=== PATIENT | female | born 1990 | race Caucasian/White ===

== ENCOUNTER → 2016-07-02 | Outpatient (REF) | payer OTHER | LOC: M LAB REF 12:02 | PROVIDERS: ATTEND Internal Medicine | DX: Q79.6 Ehlers-Danlos syndromes (principal) ==

== ENCOUNTER → 2016-12-01 | Outpatient (CLI) | payer OTHER ==
--- NOTE | 2016-12-01 16:58 | REP ---
CT NECK WITHOUT CONTRAST: HISTORY: Janell-Danlos syndrome. The naso-, jay- and hypopharynx, larynx and subglottic trachea are normal in appearance. The salivary and thyroid glands are normal in size and density. Small lymph nodes less than 1 cm in size are present in the posterior triangles and submandibular areas. The temporomandibular joints are normal in appearance. The spinal canal and neural foramina are patent. There is no fracture or subluxation. The lung apices are clear. A retention cyst or polyp is present in the left maxillary sinus. IMPRESSION: 1. There is no neck mass or adenopathy.2. Left maxillary sinus retention cyst or polyp. Signed by Delonte Hicks MD 12/01/2016 05:02 P
== END ==
LOC: M RAD 16:04
PROVIDERS: ATTEND Internal Medicine
DX: Q79.6 Ehlers-Danlos syndromes (principal); K11.5 Sialolithiasis

== ENCOUNTER → 2017-02-18 | Outpatient (CLI) | payer OTHER | LOC: M WUC 10:36 | PROVIDERS: ATTEND Physician Assistant | DX: Z00.01 Encounter for general adult medical examination with abnormal findings (principal) ==

== ENCOUNTER → 2017-07-08 | Outpatient (CLI) | payer OTHER ==
[2017-07-08 15:21] LABS: ALBUMIN 4.6 GM/DL (3.2-5.2); ALBUMIN/GLOBULIN RATIO 1.44 (1.00-1.93); ALKALINE PHOSPHATASE 71 U/L (45-117); ALT/SGPT 31 U/L (12-78); ANION GAP 8 MEQ/L (8-16); AST/SGOT 18 U/L (7-37); BILIRUBIN,TOTAL 1.2 MG/DL (0.2-1.0); BLOOD UREA NITROGEN 7 MG/DL (7-18); CALCIUM LEVEL 9.7 MG/DL (8.5-10.1); CARBON DIOXIDE LEVEL 29 MEQ/L (21-32); CHLORIDE LEVEL 103 MEQ/L (98-107); CREATININE FOR GFR 0.74 MG/DL (0.55-1.30); GLOMERULAR FILTRATION RATE > 60.0 (>60); GLUCOSE, FASTING 83 MG/DL (70-100); POTASSIUM SERUM 4.7 MEQ/L (3.5-5.1); SODIUM LEVEL 140 MEQ/L (136-145); TOTAL PROTEIN 7.8 GM/DL (6.4-8.2)
== END ==
LOC: M LAB 14:18
DX: R17 Unspecified jaundice (principal)
CPT/HCPCS: 80053

== ENCOUNTER → 2018-04-17 | Outpatient (CLI) | payer OTHER ==
[2018-04-17 14:59] LABS: BASO # 0.1 10^3/uL (0.0-0.2); BASO % 0.7 % (0.0-1.0); EOS # 0.3 10^3/uL (0.0-0.50); EOS % 3.7 % (0.0-3.0); HEMATOCRIT 37.4 % (36.0-47.0); HEMOGLOBIN 12.4 g/dl (12.0-15.5); LYMPH # 3.2 10^3/uL (1.5-6.5); LYMPH % 45.6 % (24.0-44.0); MEAN CORPUSCULAR HEMOGLOBIN 29.1 pg (27.0-33.0); MEAN CORPUSCULAR HGB CONC 33.2 g/dl (32.0-36.5); MEAN CORPUSCULAR VOLUME 87.8 fl (80.0-96.0); MONO # 0.5 10^3/uL (0.0-0.8); MONO % 7.1 % (0.0-5.0); NEUTROPHILS % 42.8 % (36.0-66.0); PLATELET COUNT, AUTOMATED 282 10^3/uL (150-450); RED BLOOD COUNT 4.26 10^6/uL (4.00-5.40); WHITE BLOOD COUNT 7.1 10^3/uL (4.0-10.0)
[2018-04-17 15:24] LABS: ALT/SGPT 34 U/L (12-78); BILIRUBIN,TOTAL 0.9 MG/DL (0.2-1.0); BLOOD UREA NITROGEN 16 MG/DL (7-18); C REACTIVE PROTEIN QUANTITATIV < 0.30 MG/DL (0.00-0.30); CALCIUM LEVEL 8.6 MG/DL (8.5-10.1); CARBON DIOXIDE LEVEL 26 MEQ/L (21-32); CHLORIDE LEVEL 108 MEQ/L (98-107); CREATININE FOR GFR 0.61 MG/DL (0.55-1.30); GLOMERULAR FILTRATION RATE > 60.0 (>60); GLUCOSE, FASTING 79 MG/DL (70-100); SODIUM LEVEL 139 MEQ/L (136-145); TOTAL PROTEIN 6.8 GM/DL (6.4-8.2)
== END ==
LOC: M LAB 14:06
PROVIDERS: ATTEND Internal Medicine
DX: Q79.6 Ehlers-Danlos syndromes (principal)

== ENCOUNTER → 2018-04-25 | Outpatient (CLI) | payer OTHER ==
[2018-04-25 14:33] LABS: BASO # 0.1 10^3/uL (0.0-0.2); BASO % 0.7 % (0.0-1.0); EOS # 0.3 10^3/uL (0.0-0.50); EOS % 3.7 % (0.0-3.0); LYMPH # 3.1 10^3/uL (1.5-6.5); MEAN CORPUSCULAR HEMOGLOBIN 29.3 pg (27.0-33.0); MEAN CORPUSCULAR HGB CONC 33.3 g/dl (32.0-36.5); MEAN CORPUSCULAR VOLUME 87.8 fl (80.0-96.0); MONO # 0.5 10^3/uL (0.0-0.8); MONO % 6.3 % (0.0-5.0); NEUTROPHILS # 3.6 10^3/uL (1.8-7.7); PLATELET COUNT, AUTOMATED 358 10^3/uL (150-450); RED BLOOD COUNT 4.44 10^6/uL (4.00-5.40); WHITE BLOOD COUNT 7.6 10^3/uL (4.0-10.0)
[2018-04-25 14:42] LABS: ALBUMIN 4.8 GM/DL (3.2-5.2); ALT/SGPT 29 U/L (12-78); BLOOD UREA NITROGEN 9 MG/DL (7-18); C REACTIVE PROTEIN QUANTITATIV < 0.30 MG/DL (0.00-0.30); CALCIUM LEVEL 9.4 MG/DL (8.5-10.1); CARBON DIOXIDE LEVEL 28 MEQ/L (21-32); CHLORIDE LEVEL 103 MEQ/L (98-107); CREATININE FOR GFR 0.58 MG/DL (0.55-1.30); GLOMERULAR FILTRATION RATE > 60.0 (>60); GLUCOSE, FASTING 82 MG/DL (70-100); SODIUM LEVEL 137 MEQ/L (136-145); TOTAL PROTEIN 7.6 GM/DL (6.4-8.2)
== END ==
LOC: M LAB 13:43
PROVIDERS: ATTEND Internal Medicine
DX: Q79.6 Ehlers-Danlos syndromes (principal)

== ENCOUNTER → 2018-05-02 | Outpatient (CLI) | payer OTHER ==
[2018-05-02 19:33] LABS: BASO % 0.6 % (0.0-1.0); EOS # 0.1 10^3/uL (0.0-0.50); HEMOGLOBIN 13.2 g/dl (12.0-15.5); LYMPH # 2.7 10^3/uL (1.5-6.5); LYMPH % 42.8 % (24.0-44.0); MEAN CORPUSCULAR HEMOGLOBIN 29.7 pg (27.0-33.0); MEAN CORPUSCULAR VOLUME 89.9 fl (80.0-96.0); MONO # 0.4 10^3/uL (0.0-0.8); MONO % 6.5 % (0.0-5.0); NEUTROPHILS % 47.9 % (36.0-66.0); PLATELET COUNT, AUTOMATED 410 10^3/uL (150-450); RED BLOOD COUNT 4.45 10^6/uL (4.00-5.40); WHITE BLOOD COUNT 6.4 10^3/uL (4.0-10.0)
[2018-05-02 20:12] LABS: ALBUMIN 4.4 GM/DL (3.2-5.2); ALT/SGPT 27 U/L (12-78); BILIRUBIN,TOTAL 1.1 MG/DL (0.2-1.0); BLOOD UREA NITROGEN 8 MG/DL (7-18); C REACTIVE PROTEIN QUANTITATIV < 0.30 MG/DL (0.00-0.30); CALCIUM LEVEL 9.2 MG/DL (8.5-10.1); CARBON DIOXIDE LEVEL 28 MEQ/L (21-32); CHLORIDE LEVEL 104 MEQ/L (98-107); CREATININE FOR GFR 0.63 MG/DL (0.55-1.30); GLOMERULAR FILTRATION RATE > 60.0 (>60); GLUCOSE, FASTING 72 MG/DL (70-100); POTASSIUM SERUM 4.5 MEQ/L (3.5-5.1); SODIUM LEVEL 139 MEQ/L (136-145); TOTAL PROTEIN 7.3 GM/DL (6.4-8.2)
== END ==
LOC: M WUC 15:30
PROVIDERS: ATTEND Internal Medicine
DX: Q79.6 Ehlers-Danlos syndromes (principal)

== ENCOUNTER → 2018-05-08 | Outpatient (CLI) | payer OTHER ==
[2018-05-08 17:00] LABS: BASO # 0.1 10^3/uL (0.0-0.2); BASO % 0.8 % (0.0-1.0); EOS # 0.2 10^3/uL (0.0-0.50); HEMATOCRIT 40.7 % (36.0-47.0); HEMOGLOBIN 13.3 g/dl (12.0-15.5); LYMPH # 2.9 10^3/uL (1.5-6.5); LYMPH % 38.5 % (24.0-44.0); MEAN CORPUSCULAR HEMOGLOBIN 29.4 pg (27.0-33.0); MEAN CORPUSCULAR HGB CONC 32.7 g/dl (32.0-36.5); MEAN CORPUSCULAR VOLUME 89.8 fl (80.0-96.0); MONO # 0.4 10^3/uL (0.0-0.8); NEUTROPHILS % 53.4 % (36.0-66.0); PLATELET COUNT, AUTOMATED 346 10^3/uL (150-450); RED BLOOD COUNT 4.53 10^6/uL (4.00-5.40); WHITE BLOOD COUNT 7.5 10^3/uL (4.0-10.0)
[2018-05-08 17:01] LABS: ALBUMIN 4.3 GM/DL (3.2-5.2); ALT/SGPT 30 U/L (12-78); BILIRUBIN,TOTAL 1.3 MG/DL (0.2-1.0); BLOOD UREA NITROGEN 12 MG/DL (7-18); C REACTIVE PROTEIN QUANTITATIV < 0.30 MG/DL (0.00-0.30); CARBON DIOXIDE LEVEL 29 MEQ/L (21-32); CHLORIDE LEVEL 103 MEQ/L (98-107); CREATININE FOR GFR 0.62 MG/DL (0.55-1.30); GLOMERULAR FILTRATION RATE > 60.0 (>60); GLUCOSE, FASTING 82 MG/DL (70-100); SODIUM LEVEL 140 MEQ/L (136-145); TOTAL PROTEIN 7.3 GM/DL (6.4-8.2)
== END ==
LOC: M WUC 11:17
PROVIDERS: ATTEND Internal Medicine
DX: Q79.6 Ehlers-Danlos syndromes (principal)

== ENCOUNTER → 2018-05-17 | Outpatient (CLI) | payer OTHER ==
[2018-05-17 19:42] LABS: BASO # 0.1 10^3/uL (0.0-0.2); BASO % 0.5 % (0.0-1.0); EOS # 0.2 10^3/uL (0.0-0.50); HEMATOCRIT 40.9 % (36.0-47.0); HEMOGLOBIN 13.6 g/dl (12.0-15.5); MEAN CORPUSCULAR HEMOGLOBIN 30.5 pg (27.0-33.0); MEAN CORPUSCULAR HGB CONC 33.3 g/dl (32.0-36.5); MEAN CORPUSCULAR VOLUME 91.7 fl (80.0-96.0); MONO # 0.6 10^3/uL (0.0-0.8); MONO % 5.6 % (0.0-5.0); NEUTROPHILS # 6.6 10^3/uL (1.8-7.7); NEUTROPHILS % 62.6 % (36.0-66.0); PLATELET COUNT, AUTOMATED 297 10^3/uL (150-450); RED BLOOD COUNT 4.46 10^6/uL (4.00-5.40); WHITE BLOOD COUNT 10.5 10^3/uL (4.0-10.0)
[2018-05-17 19:54] LABS: ALBUMIN 4.2 GM/DL (3.2-5.2); ALT/SGPT 21 U/L (12-78); BILIRUBIN,TOTAL 1.3 MG/DL (0.2-1.0); BLOOD UREA NITROGEN 10 MG/DL (7-18); C REACTIVE PROTEIN QUANTITATIV < 0.30 MG/DL (0.00-0.30); CALCIUM LEVEL 8.8 MG/DL (8.5-10.1); CARBON DIOXIDE LEVEL 28 MEQ/L (21-32); CHLORIDE LEVEL 106 MEQ/L (98-107); GLOMERULAR FILTRATION RATE > 60.0 (>60); GLUCOSE, FASTING 85 MG/DL (70-100); POTASSIUM SERUM 4.2 MEQ/L (3.5-5.1); SODIUM LEVEL 140 MEQ/L (136-145); TOTAL PROTEIN 7.1 GM/DL (6.4-8.2)
== END ==
LOC: M WUC 15:59
PROVIDERS: ATTEND Internal Medicine
DX: Q79.6 Ehlers-Danlos syndromes (principal)

== ENCOUNTER 2019-07-26 12:23 | Emergency (ER) | payer OTHER ==
[~2019-07-26] VITALS: Ht 154.9 cm; Wt 52.8 kg
[2019-07-26 12:24] VITALS: BP 135/83
[2019-07-26] MEDS ORDERED: VITAD1000T PO (12:38)
[2019-07-26] MEDS ORDERED: FLON1SPR NARES (12:56)
[2019-07-26] MEDS ORDERED: CETI10CA2 PO (12:56)
== END 2019-07-26 13:05 | disposition home or self-care (01) ==
LOC: M ED 12:23
DX: H65.03 Acute serous otitis media, bilateral (principal); F17.218 Nicotine dependence, cigarettes, with other nicotine-induced disorders

== ENCOUNTER → 2019-09-20 | Outpatient (CLI) | payer OTHER ==
[~2019-09-20] MED LIST: CETI10CA2 PO; D31000TA2 PO; FLON1SPR NARES; ISOVUE-370 76% 100ML VIAL As Ordered ONE
--- NOTE | 2019-09-20 10:28 | REPVR ---
PROCEDURE INFORMATION: Exam: CT Neck With Contrast Exam date and time: 09/20/2019 7:56 AM Age: 29 years old Clinical indication: Mass, lump, or swelling in neck; Additional info: Localized swelling mass lump neck lt submandibular TECHNIQUE: Imaging protocol: Computed tomography images of the neck with intravenous contrast. Radiation optimization: All CT scans at this facility use at least one of these dose optimization techniques: automated exposure control; mA and/or kV adjustment per patient size (includes targeted exams where dose is matched to clinical indication); or iterative reconstruction. Contrast material: ISOVUE 370; Contrast volume: 75 ml; Contrast route: INTRAVENOUS (IV); COMPARISON: CT Neck without contrast 12/01/2016 4:18 PM FINDINGS: Nasopharynx: Unremarkable. Oropharynx: Unremarkable. No significant tonsillar enlargement. Hypopharynx: Unremarkable. Larynx: Unremarkable. Normal epiglottis. Retropharyngeal space: Unremarkable. Submandibular/Parotid glands: Normal. Glands are normal in size. Thyroid: Slightly hypodense 13 mm x 9 mm left thyroid lobe lesion. Hyperenhancing exophytic thyroid nodules versus lymph nodes along the caudal aspect of the thyroid isthmus and left thyroid lobe. These were incompletely imaged on the CT. Imaged lesions appear similar compared to prior. These measure up to 16 mm x 10 mm. Lymph nodes: Mildly prominent 11 mm x 8 mm left submandibular lymph node. Mildly prominent 12 mm x 7 mm and 12 mm x 8 mm left jugular chain left jugular chain lymph node. Additional smaller lymph nodes within the neck bilaterally Trachea: Visualized trachea is unremarkable. Lungs: Unremarkable as visualized. Bones/joints: Unremarkable. No acute fracture. Soft tissues: Unremarkable. No significant soft tissue swelling. IMPRESSION: 1. Hyperenhancing exophytic nodules versus lymph nodes along the caudal aspect of the left thyroid lobe and thyroid isthmus. Recommend further evaluation with targeted ultrasound. 2. Mildly prominent left submandibular and jugular chain nodes. COMMENTS: Consistent with the [employer]'s Incidental Findings Committee white paper (J Am Humza Radiol 2015): In patients under 35 years old with an incidental thyroid nodule equal to or greater than [address], MRI or extrathyroidal US, further evaluation with dedicated thyroid US is recommended for patients with normal life expectancy and without comorbidities. For smaller nodules without suspicious features, no further evaluation or follow up is recommended. Electronically signed by: Sharyn Reyes On 09/20/2019 10:28:33 AM
== END ==
LOC: M RAD 07:16
PROVIDERS: ATTEND Otolaryngology
DX: E04.1 Nontoxic single thyroid nodule (principal); R22.1 Localized swelling, mass and lump, neck
CPT/HCPCS: 70491; Q9967

== ENCOUNTER → 2019-10-23 | Outpatient (CLI) | payer OTHER ==
[~2019-10-23] MED LIST changes: -ISOVUE-370 76% 100ML VIAL As Ordered ONE; +LIDOCAINE 1% MDV 20ML VIAL As Ordered ONE
--- NOTE | 2019-11-28 07:07 | REP ---
ULTRASOUND-GUIDED LEFT THYROID BIOPSY The procedure was performed under the direct supervision of Dr. Welch. The patient has a history of a left thyroid lobe that is felt to be largely replaced by heterogeneous hypoechoic solid tissue seen on a previous ultrasound dated 09/28/2019. The risks and benefits of the procedure were explained to the patient and informed consent was obtained. The left thyroid lobe was localized using ultrasound guidance. The skin was prepped and draped in a sterile fashion. 1% Lidocaine was used as a local anesthetic. Using ultrasound guidance, four fine needle aspirations were obtained using 25-gauge needles. All samples were sent to the lab for analysis. The patient tolerated the procedure well and there were no immediate complications. After the appropriate amount of monitored convalescence, the patient was discharged from the department. DANIEL
== END ==
LOC: M IRPRO 11:55 → M RAD 11:55
PROVIDERS: ATTEND Otolaryngology
DX: D44.0 Neoplasm of uncertain behavior of thyroid gland (principal)

== ENCOUNTER → 2020-01-07 | Outpatient (CLI) | payer OTHER ==
[2020-01-07 12:24] VITALS: BP 136/81
--- NOTE | 2020-01-07 17:30 | REP ---
INDICATION: LT THYROID LOBE THAT IS FELT TO BE LARGELY REPLACED BY HETEROGENEOUS HYPOECHOIC SOLID TISSUE SEEN ON A PREVIOUS ULTRASOUND DATED 09/28/2019.. THIS WAS PREVIOUSLY BIOPSIED ON 10/23/2019. COMPARISON: None. TECHNIQUE: The procedure was performed under the direct supervision of Dr. Rocha. The risks and benefits of the procedure were explained to the patient and informed consent was obtained. The left thyroid was localized using ultrasound guidance. The skin was prepped and draped in a sterile fashion. 1% lidocaine was used as a local anesthetic. Using ultrasound guidance 6 fine needle aspirations were obtained using 25 gauge needles. FINDINGS: None IMPRESSION: Technically successful ultrasound-guided left thyroid biopsy The patient tolerated the procedure well and there were no immediate complications. After the appropriate amount to monitor convalescence the patient was discharged from the department. <Electronically signed by Jose Tony > 01/07/20 1631 <Electronically signed by Robert Rocha > 01/07/20 [id number]
== END ==
LOC: M IRPRO 11:31
PROVIDERS: ATTEND Otolaryngology
DX: E06.3 Autoimmune thyroiditis (principal); R89.6 Abnormal cytological findings in specimens from other organs, systems and tissues

== ENCOUNTER → 2020-04-21 | Outpatient (CLI) | payer OTHER ==
[~2020-04-21] MED LIST changes: +BIOT2500 PO; -LIDOCAINE 1% MDV 20ML VIAL As Ordered ONE
== END ==
LOC: M LABSMTC 09:31
PROVIDERS: ATTEND Anesthesiology
DX: Z01.812 Encounter for preprocedural laboratory examination (principal); Z20.822 Contact with and (suspected) exposure to COVID-19

== ENCOUNTER 2020-04-22 06:37 | Inpatient (IN) | payer OTHER ==
[2020-04-22] VITALS (23 sets, daily range): BP systolic 120–145; BP diastolic 58–92
[~2020-04-22] VITALS: Ht 154.9 cm; Wt 45.6 kg
[2020-04-22] MEDS ORDERED: LR 1,000 ML IV ONE (07:00)
[2020-04-22] MEDS ORDERED: dexameTHASONE 4 MG/ML 1ML VIAL (J1100 PER 1MG) IV ONE (07:00)
[2020-04-22] MEDS ORDERED: MIDAZOLAM INJ 2MG/2ML VIAL (J2250 PER 1MG) As Ordered ONE (07:09)
[2020-04-22] MEDS ORDERED: fentaNYL 250 MCG/5 ML INJECTION (J3010) As Ordered ONE ×2 (07:09→12:46)
[2020-04-22] MEDS ORDERED: SUCCINYLCHOLINE 100 MG/5 ML SYRINGE (J0330) As Ordered ONE (07:10)
[2020-04-22] MEDS ORDERED: propofoL 200 MG/20 ML VIAL As Ordered ONE ×2 (07:10→14:53)
[2020-04-22] MEDS ORDERED: LIDOCAINE 2% 100MG/5ML SDV (FOR ANES.) As Ordered ONE ×2 (07:10→10:09)
[2020-04-22] MEDS ORDERED: ACETAMINOPHEN 1000MG 100ML IV BTL (OFIRMEV) (J0131 PER 10MG) As Ordered ONE (07:10)
[2020-04-22] MEDS ORDERED: ePHEDrine SULFATE 25 MG/5 ML(5MG/ML) SYRINGE As Ordered ONE (07:10)
[2020-04-22] MEDS ORDERED: dexameTHASONE 4 MG/ML 1ML VIAL (J1100 PER 1MG) As Ordered ONE ×2 (07:10→14:19)
[2020-04-22] MEDS ORDERED: PHENYLephrine 500MCG 5ML (100MCG/ML) SYRINGE As Ordered ONE ×2 (07:10→08:23)
[2020-04-22] MEDS ORDERED: LIDOCAINE W/EPINEPHRINE 1% 20ML VIAL As Ordered ONE (07:13)
[2020-04-22] MEDS ORDERED: PHENYLEPHRINE 10MG/ML 1ML VIAL (J2370 PER 1) As Ordered ONE (07:20)
--- OUTSIDE RECORDS SUMMARY | 2020-04-22 07:30 | CCD | Continuity of Care Document ---
Author Author Ashley KHAN Organization Unknown Address [address] [place] [address] [place] [address] Phone [phone] Care Team Providers Care Amortization Clerk Name Role Phone Wilberto Gipson RPA AUTM [phone] Vincenzo Jiménez Publi AUTM [phone] Problems Description No Information Available Social History Type Date Description Comments Sex Unknown ETOH Use Rarely consumes alcohol Tobacco Use Start: Unknown Patient is a current smoker, smo kes every day 1/2 ppd Tobacco Use Start: Unknown The Patient Has Never Vaped Smoking Status Reviewed: 02/19/20 The Patient Has Never Vaped Allergies, Adverse Reactions, Alerts Description No Known Drug Allergies Medications Description No Active Medications Immunizations CPT Code Status Date Vaccine Reaction Lot # [id number] Given 04/27/2017 PPD- TB Intradermal Test 0mm ,negative read by NAZ Castillo [id number] Given 02/18/2017 PPD- TB Intradermal Test No reaction - read as negative, 0 mm of induration by NAZ Castillo. 02/20/2017 1351 [id number] Vital Signs Date Vital Result Comment 02/19/2020 12:00pm BP Systolic 110 mmHg BP Diastolic 64 mmHg Heart Rate 103 /min Respiratory Rate 16 /min O2 % BldC Oximetry 99 % Body Temperature 98.7 F Weight 107.00 lb Height 61 inches 5'1" BMI (Body Mass Index) 20.2 kg/m2 Pain Level 6 Results Description No Information Available Procedures Description No Information Available Medical Devices Description No Information Available Encounters Type Date Location Provider Dx Diagnosis Office Visit 02/19/2020 12:30p Main Office NAZ Pal J06 .9 Acute upper respiratory infection, unspecified Z20.828 Contact w and exposure to ot h viral communicable diseases Assessments Date Code Description Provider 02/19/2020 J06.9 Acute upper respiratory infectio n, unspecified NAZ Pal 02/19/2020 Z20.828 Contact with and (nagel spected) exposure to other viral communicable diseases NAZ Pal Plan of Treatment No Information Available Functional Status Description No Information Available Mental Status Description No Information Available Referrals Description No Information Available
--- OUTSIDE RECORDS SUMMARY | 2020-04-22 07:31 | CCD | Continuity of Care Document ---
Author Author Ashley KHAN Organization Unknown Address [address] [place] [address] [place] [address] Phone [phone] Care Team Providers Care Drop Wire Hanger Name Role Phone Wilberto Gipson RPA AUTM [phone] Vincenzo Jiménez Publi AUTM [phone] Problems Description No Information Available Social History [...] Code Status Date Vaccine Reaction Lot # [id number] Given 04/27/2017 PPD- TB Intradermal Test 0mm ,negative read by NAZ Castillo [id number] Given 02/18/2017 PPD- TB Intradermal Test No reaction - read as negative, 0 mm of induration by NAZ Castillo. 02/20/2017 1351 [id number] Vital Signs Date Vital Result Comment 02/19/2020 [...]
--- OUTSIDE RECORDS SUMMARY | 2020-04-22 07:32 | CCD ---
Author Author [facility] Organization [facility] Address Unknown Phone Unavailable Care Team Providers Care Ip Attorney Name Role Phone Tim [id number] MD Caden ROMEO Unavailable Tim [phone] MD Caden ROMEO Unavailable Tim [phone] MD Cadne MD Unavailable Tim, [id number] MD Caden MD Unavailable Tim, [id number] MD Caden MD Unavailable Tim, [id number] MD Caden MD Unavailable Tim, [id number] MD Caden MD Unavailable Tim, [id number] MD Caden MD Unavailable Tim, [id number] MD Caden MD Unavailable Tim, [id number] MD Caden MD Unavailable Tim, [id number] MD Caden MD Unavailable Tim, [id number] MD Caden MD Unavailable Tim, [id number] MD Caden MD Unavailable Tim, [id number] MD Caden MD Unavailable Tim, [id number] MD Caden MD Unavailable Tim, [id number] MD Caden MD Unavailable Tim, [id number] MD Caden MD Unavailable Tim, [id number] MD Caden MD Unavailable Tim, [id number] MD Caden MD Unavailable Tim, [id number] MD Caden MD Unavailable Tim, [id number] MD Caden MD Unavailable Tim, [id number] MD Caden MD Unavailable Tim, [id number] MD Caden MD Unavailable Tim, [id number] MD Caden MD Unavailable Tim, [id number] MD Caden MD Unavailable Tim, [id number] MD Cdaen ROMEO Unavailable Tim, [id number] MD Caden ROMEO Unavailable Tim, [id number] MD Caden ROMEO Unavailable Tim, [id number] MD Caden ROMEO Unavailable Tim, [id number] MD Caden ROMEO Unavailable Tim, [id number] MD Caden ROMEO Unavailable Last Rodriguez MD Unavailable Unavailable Last Rodriguez MD Unavailable Unavailable Last Rodriguez MD Unavailable Unavailable Last Rodriguez MD Unavailable Unavailable Last Rodriguez MD Unavailable Unavailable Last Rodriguez MD Unavailable Unavailable Angelic MCQUEEN MD Unavailable Unavailable Angelic MCQUEEN MD Unavailable Unavailable Angelic MCQUEEN MD Unavailable Unavailable Angelic MCQUEEN MD Unavailable Unavailable Angelic MCQUEEN MD Unavailable Unavailable Angelic MCQUEEN MD Unavailable Unavailable nAgelic MCQUEEN MD Unavailable Unavailable Angelic MCQUEEN MD Unavailable Unavailable Angelic MCQUEEN MD Unavailable Unavailable Angelic MCQUEEN MD Unavailable Unavailable Angelic MCQUEEN MD Unavailable Unavailable Angelic MCQUEEN MD Unavailable Unavailable Angelic MCQUEEN MD Unavailable Unavailable Angelic MCQUEEN MD Unavailable Unavailable Angelic MCQUEEN MD Unavailable Unavailable Angelic MCQUEEN MD Unavailable Unavailable Angelic MCQUEEN MD Unavailable Unavailable Angelic MCQUEEN MD Unavailable Unavailable Angelic MCQUEEN MD Unavailable Unavailable Angelic MCQUEEN MD Unavailable Unavailable Angelic MCQUEEN MD Unavailable Unavailable Angelic MCQUEEN MD Unavailable Unavailable Angelic MCQUEEN MD Unavailable Unavailable Angelic MCQUEEN MD Unavailable Unavailable Angelic MCQUEEN MD Unavailable Unavailable Angelic MCQUEEN MD Unavailable Unavailable Angelic MCQUEEN MD Unavailable Unavailable Angelic MCQUEEN MD Unavailable Unavailable Angelic MCQUEEN MD Unavailable Unavailable Angelic MCQUEEN MD Unavailable Unavailable Angelic MCQUEEN MD Unavailable Unavailable Angelic MCQUEEN MD Unavailable Unavailable NERISAngelic MD Unavailable Unavailable NERISAngelic CHOUDHURY MD Unavailable Unavailable NERIS, Angelic JOSEPH MD Unavailable Unavailable TURRIN, KRISH Unavailable Unavailable TURRIN, KRISH Unavailable Unavailable TURRIN, KRISH Unavailable Unavailable TURRIN, KRISH Unavailable Unavailable Dille, E Nikki DDS Unavailable Unavailable Dille, E Nikki DDS Unavailable Unavailable Dille, E Nikki DDS Unavailable Unavailable Dille, E Nikki DDS Unavailable Unavailable Fish, J Almas Unavailable Unavailable Fish, J Almas Unavailable Unavailable Fish, J Almas Unavailable Unavailable Fish, J Almas Unavailable Unavailable Fish, J Almas Unavailable Unavailable Fish, J Almas Unavailable Unavailable Fish, J Almas Unavailable Unavailable Fish, J Almas Unavailable Unavailable Fish, J Almas Unavailable Unavailable Fish, J Almas Unavailable Unavailable Fish, J Almas Unavailable Unavailable Fish, J Almas Unavailable Unavailable Fish, J Almas Unavailable Unavailable Fish, J Almas Unavailable Unavailable Fish, J Almas Unavailable Unavailable Fish, J Almas Unavailable Unavailable Fish, J Almas Unavailable Unavailable Fish, J Almas Unavailable Unavailable Fish, J Almas Unavailable Unavailable Fish, J Almas Unavailable Unavailable Fish, J Almas Unavailable Unavailable Fish, J Almas Unavailable Unavailable Fish, J Almas Unavailable Unavailable Fish, J Almas Unavailable Unavailable Fish, J Almas Unavailable Unavailable Fish, J Almas Unavailable Unavailable Fish, J Almas Unavailable Unavailable Fish, J Almas Unavailable Unavailable Fish, J Almas Unavailable Unavailable Fish, J Almas Unavailable Unavailable Fish, J Almas Unavailable Unavailable Fish, J Almas Unavailable Unavailable Fish, J Almas Unavailable Unavailable Fish, J Almas Unavailable Unavailable Fish, J Almas Unavailable Unavailable Fish, J Almas Unavailable Unavailable Fish, J Almas Unavailable Unavailable Fish, J Almas Unavailable Unavailable Fish, J Almas Unavailable Unavailable Fish, J Almas Unavailable Unavailable Fish, J Almas Unavailable Unavailable Fish, J Almas Unavailable Unavailable Fish, J Almas Unavailable Unavailable Fish, J Almas Unavailable Unavailable Fish, J Almas Unavailable Unavailable Fish, J Almas Unavailable Unavailable Fish, J Almas Unavailable Unavailable Fish, J Almas Unavailable Unavailable Fish, J Almas Unavailable Unavailable Fish, J Almas Unavailable Unavailable Fish, J Almas Unavailable Unavailable Fish, J Almas Unavailable Unavailable Fish, J Almas Unavailable Unavailable Fish, J Almas Unavailable Unavailable Fish, J Almas Unavailable Unavailable Fish, J Almas Unavailable Unavailable Fish, J Almas Unavailable Unavailable Fish, J Almas Unavailable Unavailable Fish, J Almas Unavailable Unavailable Fish, J Almas Unavailable Unavailable Fish, J Almas Unavailable Unavailable Fish, J Almas Unavailable Unavailable Fish, J Almas Unavailable Unavailable Fish, J Almas Unavailable Unavailable Fish, J Almas Unavailable Unavailable Fish, J Almas Unavailable Unavailable Fish, J Almas Unavailable Unavailable Fish, J Almas Unavailable Unavailable Fish, J Almas Unavailable Unavailable Fish, J Almas Unavailable Unavailable Fish, J Almas Unavailable Unavailable Fish, J Almas Unavailable Unavailable Fish, J Almas Unavailable Unavailable Fish, J Almas Unavailable Unavailable Fish, J Almas Unavailable Unavailable Fish, J Almas Unavailable Unavailable Fish, J Almas Unavailable Unavailable Fish, J Almas Unavailable Unavailable Fish, J Almas Unavailable Unavailable Fish, J Almas Unavailable Unavailable Fish, J Almas Unavailable Unavailable Fish, J Almas Unavailable Unavailable Fish, J Almas Unavailable Unavailable Fish, J Almas Unavailable Unavailable Fish, J Almas Unavailable Unavailable Caden Dumont MD Unavailable Unavailable LETTIERE, A LEROY PA Unavailable Unavailable LETTIERE, A LEROY PA Unavailable Unavailable LETTIERE, A LEROY PA Unavailable Unavailable LETTIERE, A LEROY PA Unavailable Unavailable LETTIERE, A LEROY PA Unavailable Unavailable LETTIERE, A LEROY PA Unavailable Unavailable LETTIERE, A LEROY PA Unavailable Unavailable LETTIERE, A LEROY PA Unavailable Unavailable LETTIERE, A LEROY PA Unavailable Unavailable LETTIERE, A LEROY PA Unavailable Unavailable LETTIERE, A LEROY PA Unavailable Unavailable LETTIERE, A LEROY PA Unavailable Unavailable LETTIERE, A LEROY PA Unavailable Unavailable LETTIERE, A LEROY PA Unavailable Unavailable LETTIERE, A LEROY PA Unavailable Unavailable LETTIERE, A LEROY PA Unavailable Unavailable LETTIERE, A LEROY PA Unavailable Unavailable LETTIERE, A LEROY PA Unavailable Unavailable LETTIERE, A LEROY PA Unavailable Unavailable LETTIERE, A LEROY PA Unavailable Unavailable LETTIERE, A LEROY PA Unavailable Unavailable LETTIERE, A LEROY PA Unavailable Unavailable LETTIERE, A LEROY PA Unavailable Unavailable LETTIERE, A LEROY PA Unavailable Unavailable LETTIERE, A LEROY PA Unavailable Unavailable LETTIERE, A LEROY PA Unavailable Unavailable LETTIERE, A LEROY PA Unavailable Unavailable LETTIERE, A LEROY PA Unavailable Unavailable LETTIERE, A LEROY PA Unavailable Unavailable Re-disclosure Warning The records that you are about to access may contain information from federally-assisted alcohol or drug abuse programs. If such information is present, then the following federally mandated warning applies: This information has been disclosed to you from records protected by federal confidentiality rules (42 CFR part 2). The federal rules prohibit you from making any further disclosure of this information unless further disclosure is expressly permitted by the written consent of the person to whom it pertains or as otherwise permitted by 42 CFR part 2. A general authorization for the release of medical or other information is NOT sufficient for this purpose. The Federal rules restrict any use of the information to criminally investigate or prosecute any alcohol or drug abuse patient.The records that you are about to access may contain highly sensitive health information, the redisclosure of which is protected by Article 27-F of the [facility] Public Health law. If you continue you may have access to information: Regarding HIV / AIDS; Provided by facilities licensed or operated by the [facility] Office of Mental Health; or Provided by the [facility] Office for People With Developmental Disabilities. If such information is present, then the following [facility] mandated warning applies: This information has been disclosed to you from confidential records which are protected by state law. State law prohibits you from making any further disclosure of this information without the specific written consent of the person to whom it pertains, or as otherwise permitted by law. Any unauthorized further disclosure in violation of state law may result in a fine or group home sentence or both. A general authorization for the release of medical or other information is NOT sufficient authorization for further disc losure. Family History Family Member Name Family Member Gender Family Member Status Date o f Status Description Data Source(s) Unknown Male Problem [facility] ([facility] Unknown Female Problem [facility] ([facility] ) Encounters Encounter Providers Location Date Indications Data Source(s ) Outpatient Attender: [phone] [facility] 12:57:00 PM EST - 03/24/2020 12:58:00 PM EST [facility] Patient discharged. Outpatient Attender: LEROY orlando 02/19/2020 11:30:00 AM EST [facility] ([facility], [facility]) Outpatient Admitter: Last Rodriguez MDReferrer: Last Rodriguez MD 01/08/2020 12:00:00 AM EST Disorder of thyroid, unspecified [facility] Disorder of thyroid, unspecified Outpatient Admitter: Last Rodriguez MDReferrer: Last Rodriguez MD 11/01/2019 12:00:00 AM EDT Nontoxic single thyroid nodule [facility] Nontoxic single thyroid nodule Outpatient Attender: Nikki Ordaz DDS [facility] 08/14/2019 07:32:18 P M EDT [facility] Outpatient Attender: JAKE Mcqueen/Florin/Salty/Carlos A shah 08/14/2019 02:00:00 PM EDT [facility] ([facility], ) Emergency Attender: KRISH Manuelsultant: Almas Count includes the [facility] 07/26/2019 07:54:00 PM EDT - 07/26/2019 09:34:00 PM EDT [facility] Patient discharged. Outpatient Attender: Caden Dumont MDAttender: [phone] Caden Dumont MD [facility] 05/23/2019 10:52:00 AM EDT - 05/23/2019 10:53:00 AM EDT [facility] Patient discharged. Medications Medication Brand Name Start Date Product Form Dose Route Admi nistrative Instructions Pharmacy Instructions Status Indications Reaction Description Data Source(s) 800 mg 07/27/2019 12:00:00 AM EDT tablet 30 TAKE ONE TABLET BY MOUTH EVERY 8 HOURS TAKE ONE TABLET BY MOUTH EVERY 8 HOURS SOLD: 07/27/2019 [facility] 300 mg 07/27/2019 12:00:00 AM EDT capsule 21 TAKE ONE CAPSULE BY MOUTH EVERY 8 HOURS FOR LYMPH NODE SWELLING TAKE ONE CAPSULE BY MOUTH EVERY 8 HOURS FOR LYMPH NODE SWELLING SOLD: 07/27/2019 [facility] 10 mg 07/26/2019 12:00:00 AM EDT tablet 14 TAKE ONE TABLET BY MOUTH AT BEDTIME TAKE ONE TABLET BY MOUTH AT BEDTIME SOLD: 07/26/2019 [facility] 50 mcg/actuation 07/26/2019 12:00:00 AM EDT spray,suspension 16 SPRAY TWO SPRAYS IN EACH NOSTRIL TWICE A DAY SPRAY TWO SPRAYS IN EACH NOSTRIL TWICE A DAY SOLD: 07/26/2019 [facility] Insurance Providers Payer name Policy type / Coverage type Policy ID Covered green party ID Covered green party's relationship to rees Policy Rees Plan Information [facility] COMMUNITY PLAN MCDO [id number] SP [id number] [facility] COMMUNITY PLAN MCDO [id number] SP [id number] [facility]ITY PL [id number] S [id number] [facility](MCAID) O [id number] S [id number] [facility] U [id number] [id number] [facility] I [id number] Self [id number] [facility] COMMUNITY PLAN [facility] [id number] SP [id number] United [employer] Essential Plan P [id number] S [id number] [facility] COMMUNITY PLAN [id number] 18 [id number] [facility] COMMUNITY PLAN [facility] [id number] SP [id number] [facility] Hmo Commercial [id number] Self [id number] [facility] Community Plan Commercial [id number] Self [id number] [facility] COMM[facility]ITY PL [id number] S [id number] [facility] Hmo Commercial [id number] Self [id number] [facility] Community Plan Commercial [id number] Self [id number] United [employer] Hmo Commercial [id number] Self [id number] [facility] COMMUNITY PLAN [facility] [id number] SP [id number] [facility](MCAID) O [id number] S [id number] United [employer] Essential Plan P [id number] S [id number] United [employer] Essential Plan P [id number] S [id number] [facility] COMMUNITY PLAN [facility] [id number] SP [id number] Self Pay P UNAVAILABLE S UNAVAILA BLE [facility] COMMUNITY PLAN MCDO [id number] SP [id number] [facility] COMMUNITY PLAN [facility] [id number] SP [id number] [facility] COMMUNITY PLAN [facility] [id number] SP [id number] SELF PAY UNAVAILABLE SP UNAVAILA BLE [facility] Community Plan Commercial Self D Managed Care United Healthcare P [id number] S [id number] Medicaid Dental P [id number] S [id number] MEDICAID M [id number] MEDICAID [id number] SP [id number] Problems, Conditions, and Diagnoses Code Display Name Description Problem Type Effective Dates Data Source(s) E07.9 Disorder of thyroid, unspecified Disorder of thy roid, unspecified Diagnosis 01/08/2020 02:29:00 PM [facility] 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 Diagnosis 11/01/2019 09:46:00 AM [facility] F1010 Alcohol abuse, uncomplicated Alcohol abuse, uncomplica nancy Diagnosis 07/26/2019 07:54:00 PM EDT [facility] [id number] Nicotine dependence, cigarettes, uncompl icated Nicotine dependence, cigarettes, uncomplicated Diagnosis 07/26/2019 07:54:00 PM EDT [facility] L040 Acute lymphadenitis of face, head and ne ck Acute lymphadenitis of face, head and neck Diagnosis 07/26/2019 07:54:00 PM EDT [facility] J029 Acute pharyngitis, unspecified Acute pharyngitis, unsp ecified Diagnosis 07/26/2019 07:54:00 PM [facility] Z79.899 Other usp (current) drug therapy O THER MCFP (CURRENT) DRUG THERAPY Diagnosis 05/23/2019 10:52:00 AM EDT [facility] H20.9 Unspecified iridocyclitis UNSPECIFIED IRIDOCYCLITIS Di agnosis 05/23/2019 10:52:00 AM EDT [facility] L50.9 Urticaria, unspecified URTICARIA, UNSPECIFIED Diagnosi s 05/23/2019 10:52:[facility] M94.1 Relapsing polychondritis RELAPSING POLYCHONDRITIS Diag nosis 05/23/2019 10:52:00 AM [facility] 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, UNSPECIFIED KEYLA-DANLO S SYNDROME, UNSPECIFIED Diagnosis 05/23/2019 10:52:00 AM [facility] Surgeries/Procedures Procedure Description Date Indications Data Source(s) FINE NEEDLE ASPIRATE FINE NEEDLE ASPIRATE Routine 11/01/2019 12:00 AM EDT 11/01/2019 12:00:00 AM [facility] OFFICE OUTPATIENT VISIT 10 MINUTES OFFICE/OUTPATIENT VISIT E ST 05/23/2019 12:00:00 AM [facility] 25 HYDROXY INCLUDES FRACTIONS IF PERFORMED VITAMIN D 25 HYDR OXY 05/23/2019 12:00:00 AM [facility] COLLECTION VENOUS BLOOD VENIPUNCTURE ROUTINE VENIPUNCTURE 12:00:00 AM [facility] Results ID Date Data Source [id number] 02/19/2020 12:00:00 AM EST JUAN Name Value Range Interpretation Code Description Data Isabella rce(s) Supporting Document(s) SARS coronavirus 2 Ag [place] This lab was ordered by [facility] and reported by [facility]. ID Date Data Source [id number] 01/10/2020 03:39:[address] [facility] CYTOPATHOLOGY REPORTName: IAM GUPTA LARMRN: [id number] Number: [id number] Date: 01/08/2020 00:00Received Date: 01/08/2020 15:54Physician(s): LAST RODRIGUEZ MD Haghir, Shahandeh MD Specimen(s) ReceivedA: THYROID, LEFT, FINE NEEDLE ASPIRATION, CONSULTATION, [id number](01/07/2020)Clinical History:29 year old female with left thyroid nodule FNA performed 01/07/20,preliminary evaluation at [facility], suspicious formalignancy, submitted for consultation.DiagnosisTHYROID, LEFT, FINE NEEDLE ASPIRATION, CONSULTATION, [id number](01/07/2020): SUSPICIOUS FOR MALIGNANCY (SEE MICROSCOPIC DESCRIPTION) Comment/ctsReviewing Cytotech: BRANDON Early(ASCP) (IAC)Electronically Signed By Jose Manuel Lyon M.D. 01/10/2020 15:39:23Microscopic DescriptionOne ThinPrep slide submitted showing high cellularity composedpredominantly of follicular cells with variably sized, hyperchromaticnuclei and high nuclear to cytoplasmic ratios. Some of these cells haveirregular nuclear contours and some have nucleoli. Many of these cellsshow chromatin clearing. These cells occur in crowded, disorganized groupswith overlapping nuclei, in discohesive groups, and singly. The backgroundshows several scattered lymphocytes. No appreciable colloid is seen. Nodefinitive intranuclear inclusions are noted. 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 I concur with your interpretation "suspicious formalignancy." Thank you for allowing me to review this case./cts /bs Gross DescriptionReceived 1 slides labeled, "[id number], Iam Gupta" with correspondingpreliminary pathology report from [facility], Department ofLaboratories, [address] [place] [address]. [id number]. .This report may include one or more immunohistochemical stain results thatuse analyte specific reagents. All positive and negative controls havebeen reviewed by the attending pathologist and are satisfactory. The testswere developed and their performance characteristics determined by [facility] Pathololgy department. They have not been cleared or approved by [place] Food and Drug Administration. The FDA has determin ed that suchclearance or approval is not necessary. Name Value Range Interpretation Code Description Data Isabella rce(s) Supporting Document(s) ID Date Data Source [id number] 11/22/2019 12:00:00 AM EDT [facility] Leroy Gipson Rpa [id number] 1990[place] [address] Date of Exam: 11/22/2019PH#: Fax: [phone] EXAM: WRIST LEFT (COMPLETE) X-RAYCLINICAL INFORMATION: Pain.Four views.There is no acute fracture or destructive osseous lesion.SHEMAR Carlton/Miguel marie for referring ASHLEY GUPTA to our office. Electronically Signed - ARSLAN HARRISON DO 11/23/19 12:35 Name Value Range Interpretation Code Description Data Isabella rce(s) Supporting Document(s) ID Date Data Source [id number] 11/01/2019 05:20:00 PM [facility] CYTOPATHOLOGY REPORTName: IAM GUPTA LARMRN: [id number] Number: [id number] Date: 11/01/2019 00:00Received Date: 11/01/2019 09:53Physician(s): LAST RODRIGUEZ MD HAGHIR, SHAHANDEH F, MD Copy To:JAKE MCQUEEN,MDSpecimen(s) ReceivedA: THYROID LEFT LOBE NODULE, FINE NEEDLE ASPIRATION, CONSULTATION,[id number] (10/23/2019)Clinical History:29 year old female with left thyroid nodule FNA performed 10/23/19,preliminary evaluation at [facility]: atypical cytology,suspicious for malignancy, submitted for consultation.DiagnosisTHYROID LEFT LOBE NODULE, FINE NEEDLE ASPIRATION, CONSULTA TION, [id number](10/23/2019): FOLLICULAR LESION/ ATYPIA OF UNDETERMINED SIGNIFICANCE(AUS) (SEE MICROSCOPIC DESCRIPTION)Comment/ctsReviewing Cytotech: BRANDON Early(ASCP) (IAC)Electronically Signed By Jose Manuel yLon M.D. 11/01/2019 17:20:38Microscopic DescriptionThe specimen consists of follicular cells with variably sized nuclei withincreased nuclear to cytoplasmic ratios. Some cells show a powderychromatin pattern, with small nucleoli and occasional nuclear grooving.These cells occur in loosely cohesive groups and also in crowded,disorganized groups. There are abundant polymorphous lymphoid agg regatesin the background. The atypia in follicular cells may be related tochronic inflammation in the background. 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 Darenk frank for allowing me to review this case./cts Gross DescriptionReceived 1 slide labeled "[id number], Ashley Gupta" with correspondingpathology report from [facility], Department ofLaboratories, [address] [place] [address]. [id number]. .This report may include one or more immunohistochemical stain results thatuse analyte specific reagents. All positive and negative controls havebeen reviewed by the attending pathologist and are satisfactory. The testswere developed and their performance characteristics determined by [facility] Pathololgy department. They have not been cleared or approved by [place] Food and Drug Administration. The FDA has determined that suchclearance or approval is not necessary. Name Value Range Interpretation Code Description Data Isabella rce(s) Supporting Document(s) ID Date Data Source [id number] 10/23/2019 10:11:00 AM EDT [facility], [facility] Name Value Range Interpretation Code Description Data Isabella rce(s) Supporting Document(s) Microscopic observation [Identifier] in Unspecified specimen by Non- gynecological cytology method Laboratory test result [facility], ) SPECIMEN: FNA left thyroid no dule Specimen received in cytolyt SPECIMEN ADEQUACY: Satisfactory for evaluation CATEGORIZATION: Atypia of Undetermined Significance DESCRIPTIONS: Variable sized follicles with increased N/C ratio. The findings favor a reactive process or lymphocytic thyroiditis. COMMENTS: Please see complete consultation report [id number] from [facility]. 11/08/2019 - 1026 Signed KARY DUGAN(ASCP) 11/08/2019 1015 (Prelim) Signed Last Rodriguez MD 11/08/2019 1026 ID Date Data Source [id number] 09/28/2019 01:21:00 PM EDT [facility], ) Name Value Range Interpretation Code Description Data Isabella rce(s) Supporting Document(s) Triiodothyronine (T3) Free [Mass/volume] in Serum or Plasma 3.0 pg/mL 2.2-4.0 Normal (applies to non-numeric results) [facility] ([facility], ) <content>note:<nlbl:demographic_changed> </content>
<content></content> ID Date Data Source [id number] 09/28/2019 01:21:00 PM EDT [facility] ([facility], ) Name Value Range Interpretation Code Description Data Isabella rce(s) Supporting Document(s) Free T4 1.01 ng/dL 0.76-1.46 Normal (applies to non-numeric resul ts) [facility] ([facility]) Thyroid Stimulating Hormone 5.060 uIU/ML 0.358-3.740 Above high vargas l [facility] ([facility]) ID Date Data Source [id number] 07/26/2019 07:54:00 PM EDT [facility] 1 OrderSheet [facility] Emergency Department [address] [place] [address] Phone #: ext- [phone] 07/26/2019 19:46 Patient: ASHLEY GUPTA Sex: F : 1990 Age: 28yWEIGHT:49.8 kg HEIGHT:61 inches BMI:20.8ALLERGIES: No Known Drug AllergyCHIEF COMPLAINT: sore throatDIAGNOSIS: LymphadenitisLAB ORDERSOrder Description Priority Entered Acknowledged InitialedCBC w Diff STAT 20:07/26/2019 20:24 Ozzie Tony; Sven NealCMP STAT 20:07/26/2019 20:24 Ozzie Tony; Sven NealMonospot STAT 20:07/26/2019 20:24 Ozzie Tony; Sven NealCRP STAT 20:07/26/2019 20:24 Ozzie Tony; Sven NealRapid Strep Screen STAT 20:07/26/2019 20:24 Ozzie Tony; Sven NealDIAGNOSTIC STUDY ORDERSOrder Description Priority Entered Acknowledged InitialedMEDICATION/IV/DRIP/FLUID ORDERSOrder Description Priority Entered Acknowledged InitialedAcetaminophen 1 g 20:15 07/26/2019 20:28 Chavo,ERICA X1 dose: 1000 Ozzie CHILDS; Sven Nealmg (NOW x1)GENERAL ORDERSOrder Description Priority Entered Acknowledged InitialedSaline Lock 20:07/26/2019 20:24 Ozzie Tony; Sven NealWarm blanket 20:07/26/2019 20:24 Ozzie Tony; Sven NealVitals 20:07/26/2019 20:24 Ozzie Tony; Sven Neal[Electronically signed by Sven Tony R.N. (:33 07/26/2019)][Electronically signed by Sven Tony R.N. (:34 07/26/2019)] 2 OrderSheet [facility] Emergency Department [address] [place] [address] Phone #: ext- [phone] 07/26/2019 19:46 [id number]: [facility] 1990 Age: 28y[Electronically signed by Ozzie Cervantes (21:45 07/26/2019)][Electronically locked by Sven Tony R.N. (:33 07/26/2019)] Name Value Range Interpretation Code Description Data Isabella rce(s) Supporting Document(s) ID Date Data Source [id number] 07/26/2019 07:54:00 PM EDT [facility] 1 Medication Reconciliation Report [facility] Emergency Department [address] [place] [address] Phone #: [phone]- [phone] 07/26/2019 19:46 Patient: ASHLEY GUPTA Sex: F : 1990 Age: 28yWeight: 49.8 kgHeight/Length: 61 in.BMI: 20.8ALLERGIES: No Known Drug AllergyThe patient's Home Medications are listed below:CONTINUE TAKING THE FOLLOWING MEDICATIONS: Flonase Allergy Relief Nasal, daily Vit D-Vit E-Safflower Oil External, daily ZyrTEC Allergy Childrens Oral (10 mg) 1 tablet, dailyThe source(s) of the original Home Medication information:Not obtained.The following Medications were given to the patient in the Emergency Department:Acetaminophen [PO] PO 1000 mg, administered: 07/26/2019 8:28:00 PMThe following Medications were prescribed to the patient:clindamycin HCl 300 mg capsule Take 1 capsule every eight hours for 7 days -- for lymph node swelling.Dispense 21 capsule. Refills: 0. Substitution permitted.[facility] - [address] [place] [address]. .ibuprofen 800 mg tablet Take 1 tablet every eight hours for 10 days -- Dispense 30 tablet. Refills: 0.Substitution permitted.[facility] - [address] [place] [address]. . -- NAZ Lopez Name Value Range Interpretation Code Description Data Isabella rce(s) Supporting Document(s) ID Date Data Source [id number] 07/26/2019 07:54:00 PM EDT [facility] 1 Medication Administration Record [facility] Emergency Department [address] [place] [address] Phone #: ext- [phone] 07/26/2019 19:46 Patient: ASHLEY GUPTA Sex: F : 1990 Age: 28yWeight: 49.8 kgHeight/Length: 61 inBMI: 20.8ALLERGIES: No Known Drug Allergy Date/Time Medication Administered Medication OrderedGiven ACETAMINOPHEN [PO] Acetaminophen 1 g PO X1 dose:20:28 07/26/2019 Dose: 1000 mg Tablets PO 1000 mg (NOW x1)Sven Tony R.N. Name Value Range Interpretation Code Description Data Isabella rce(s) Supporting Document(s) ID Date Data Source [id number] 07/26/2019 07:54:00 PM EDT [facility] 1 General Instructions [facility] Emergency Department [address] [place] [address] Phone #: ext- [phone] 07/26/2019 19:46 Patient: ASHLEY GUPTA Sex: F : 1990 Age: 28yAcute left lymphadenitis (submandibular).INSTRUCTIONSNo strenuous activity until better. Do not work for two days. Rest at home for one days.Drink plenty of fluids for the next 48 hours. Do not smoke. No alcohol.Warnings: Further evaluation is necessary. It is very important to follow up with a healthcare provider.GENERAL WARNINGS: Return or contact your physician immediately if your condition worsens orchanges unexpectedly, if not improving as expected, or if other problems arise. Specifically return if pain,vomiting, bleeding, breathing difficulty or fever.Your Current Medications: Your current home medications have been reviewed.CONTINUE TAKING THE FOLLOWING MEDICATIONS:Flonase Allergy Relief Nasal : daily.Vit D-Vit E-Safflower Oil External : daily.ZyrTEC Allergy Childrens Oral : Tablet Disintegrating 10 mg, 1 tablet daily.Prescription Medications:clindamy jona HCl 300 mg capsule Take 1 capsule every eight hours for 7 days -- for lymph node swelling.Dispense 21 capsule. Refills: 0. Substitution permitted.Pharmacy - [id number] - [address] ; [place] [address]. .ibuprofen 800 mg tablet Take 1 tablet every eight hours for 10 days -- Dispense 30 tablet. Refills: 0.Substitution permitted.[facility] - [address] ; [place] [address]. .Follow-up:Follow up with your healthcare provider in three days even if well. Call for the next available appointment.Reason for referral: evaluation and recommend ENT referral if symptoms persist. Summary of careprovided to patient via paper.Understanding of the discharge instructions verbalized by patient. Expected course of illness, dischargeinstructions, activity level, prescriptions x2, follow-up appointment and risks and benefits of treatmentreviewed with patient and understanding verbalized. Agrees to plan of care. 2 General Instructions [facility] Emergency Department [address] [place] [address] Phone #: ext- [phone] 07/26/2019 19:46 Patient: ASHLEY GUPTA Sex: F : 1990 Age: 28y ADDITIONAL INFORMATIONLocal Lymph Node Infection, Antibiotic TreatmentYou have a bacterial infection of a lymph node. The lymph nodes are part of your immune system.They are found under the jaw and along the side of the neck, in the armpits, and in the groin. Aninfection or inflammation in nearby tissues causes the lymph nodes to swell and become tender.When a bacterial infection occurs in the lymph node, it becomes very painful. The nearby skin getsred and warm. You may also have a fever.Antibiotics and hot compresses are used to treat this infection. The pain and redness will get betterover the next 7 to 10 days. Swelling may take several months to go away.Sometimes an abscess (with pus) forms inside the lymph node. If this happens, antibiotics may notbe enough to cure the infection. Minor surgery may be needed to drain the pus. You may need bloodtests or a study of the pus inside the abscess to guide your treatment.Home careFollow these guidelines when caring for yourself at home: 3 General Instructions [facility] Emergency Department [address] [place] [address] Phone #: ext- [phone] 07/26/2019 19:46 Patient: ASHLEY GUPTA Sex: F : 1990 Age: 28y Take all of the antibiotic medicine exactly as prescribed until it is gone. Be careful not to miss any doses, especially during the first few days. Make a hot compress by running hot water over a face cloth. Apply it to the sore area until the cloth cools off. Repeat this for 20 minutes. Use the hot compress 3 times a day for the first 3 days, or until the pain and redness begin to get better. The heat will increase the blood flow to the area and speed the healing process. You may use acetaminophen or ibuprofen to control pain and fever, unless another medicine was prescribed for this. Don't use ibuprofen in children under 6 months of age. If you have chronic liver or kidney disease, talk with your healthcare provider before using these medicines. Also talk with your provider if you've had a stomach ulcer or gastrointestinal bleeding. Don't give aspirin to anyone under 18 years of age who is ill with a fever. It may cause severe liver damage.Follow-up careFollow up with your healthcare provider, or as advised, after you finish the antibiotics.When to seek medical adviceCall your healthcare provider right away if any of these occur: Redness, swelling or pain in the lymph node gets worse The lymph node gets bigger, becomes soft in the middle, or doesn't seem to be getting better after you've taken the antibiotics for 2 days (48 hours) Pus or fluid drains from the lymph node You have trouble breathing or swallowingAlso call your provider right away if you have a fever, or your child's provider if your child has a fever(see Fever and children, below)Fever and childrenAlways use a digital thermometer to check your child's temperature. Never use a mercury thermometer.For infants and toddlers, be sure to use a rectal thermometer correctly. A rectal thermometer mayaccidentally poke a hole in (perforate) the rectum. It may also pass on germs from the stool.Always follow the product maker's directions for proper use. If you don't feel comfortable taking arectal temperature, use another method. When you talk to your child's healthcare provider, tell himor her which method you used to take your child's temperature. 4 General Instructions [facility] Emergency Department [address] [place] [address] Phone #: ext- [phone] 19:46 Patient: ASHLEY GUPTA Sex: F : 1990 Age: 28y Here are guidelines for fever temperature. Ear temperatures aren't accurate before 6 months of age. Don't take an oral temperature until your child is at least 4 years old. Infant under 3 months old: Ask your child's healthcare provider how you should take the temperature. Rectal or forehead (temporal artery) temperature of 100.4F (38C) or higher, or as directed by the provider Armpit temperature of 99F (37.2C) or higher, or as directed by the provider Child age 3 to 36 months: Rectal, forehead (temporal artery), or ear temperature of 102F (38.9C) or higher, or as directed by the provider Armpit temperature of 101F (38.3C) or higher, or as directed by the provider Child of any age: Repeated temperature of 104F (40C) or higher, or as directed by the provider Fever that lasts more than 24 hours in a child under 2 years old. Or a fever that lasts for 3 days in a child 2 years or older. [id number] [employer] [employer] [facility]. [address] [place] [address], [place] [address]. All rights reserved. This information is not intended as asubstitute for professional medical care. Always follow your healthcare professional's instructions. You have been given the following additional information: Cervical Adenitis, Antiobiotic Treatment No strenuous activity until better. Do not work for two days. Rest at home for one days.(Electronically signed by NAZ Lopez 07/26/2019 21:45) Name Value Range Interpretation Code Description Data Isabella rce(s) Supporting Document(s) ID Date Data Source [id number] 07/26/2019 07:54:00 PM EDT [facility] 1 Clinical Report - Nurses [facility] Emergency Department [address] [place] [address] Phone #: ext- [phone] 07/26/2019 19:46 Patient: ASHLEY GUPTA Sex: F : 1990 Age: 28yTRIAGEArrived by private vehicle. Historian: patient. ( pt states she went to [facility] ED today and was given meds,pt states she came here this evening because its getting worse. Pt states has been going on for 1 week.).Triage time: 19:48 07/26/2019. Acuity: LEVEL 3.Chief Complaint: SORE THROAT and MOUTH SORE.Alert.The patient has had mouth sores. Reports enlarged lymph nodes. --19:52 07/26/19 Martine Ceballos R.N.19:47 07/26/19. BP: 144. HR: 97. RR: 16. O2 saturation: 100%. Temp: 99.0 F. Pain level now 9/10.--19:52 07/26/19 Martine Ceballos R.N.Weight: 49.8 kg. Height/Length: 61 inches. BMI: 20.8. --19:47 07/26/19 Martine Ceballos R.N.MedicationsVit D-Vit E-Safflower Oil External, daily. --19:51 07/26/19 Martine Ceballos R.N. Flonase Allergy Relief Nasal, daily. --19:51 07/26/19 Martine Ceballos R.N. ZyrTEC Allergy Childrens Oral (Tablet Disintegrating 10 mg) 1 tablet, daily. --19:51 07/26/19 Martine Ceballos R.N.AllergiesNo Known Drug Allergy. --19:51 07/26/19 Martine Ceballos R.N.HistoryPAST MEDICAL HX: Immunizations: up-to-date. Denies current : LNMP:.SURGERY HX: No history of previous surgery.SOCIAL HX: Current every day smoker. Alcohol use; consumes wine occasionally. No drug use. Thepatient was offered HIV testing but declined (- diagnosed). The patient has not traveled outside the [place]Infectious disease exposure: No infectious disease exposure. Patient is not a known carrier of tuberculosis,hepatitis, HIV, MRSA or VRE. Patient is not a known carrier of CRE.SELF HARM ASSESSMENT: Self harm assessment was performed. The patient answered "no" to thequestion(s) "Have you recently felt down, depressed, or hopeless?", "Do you have thoughts of harming orkilling yourself?", "Do you have a plan for harming or killing yourself?", "Have you recently had thoughtsabout harming or killing others?", "Do you have any dangerous items in your possession?", "Have younoticed less interest or pleasure in doing things?", "Are you here because you tried to hurt yourself?" and"Have you ever tried to hurt yourself before today?". 2 Clinical Report - Nurses [facility] Emergency Department [address] [place] [address] Phone #: ext- [phone] 07/26/2019 19:46 Patient: ASHLEY GUPTA [facility]#: [id number] Sex: F : 1990 Age: 28y ABUSE ASSESSMENT: Abuse assessment. Abuse denied. No suspicion of abuse. NUTRITIONAL RISK ASSESSMENT: The nutritional risk assessment revealed no deficiencies. FUNCTIONAL ASSESSMENT: Functional assessment: no impairments noted. LEARNING NEEDS ASSESSMENT: The learning needs assessment revealed no barriers. FALL RISK ASSESSMENT: Fall risk assessment completed. No risk factors identified. SKIN INTEGRITY ASSESSMENT: Skin integrity risk assessment completed. No skin integrity risk identified. --19:52 07/26/19 Martine Ceballos R.N. Interventions Identification band on patient. To treatment room. --19:52 07/26/19 Martine Ceballos R.N.NURSING PROGRESS NOTESThree patient identifiers checked. Bed placed in lowest position. --19:52 07/26/19 Martine Ceballos R.N. 20:28 07/26/2019 Acetaminophen PO Tablets 1000 mg given. Allergies verified and confirmed 5 rights. Information reviewed with patient including reason for taking this medication, signs of allergic reaction and precautions. Verbalizes understanding. --20:28 07/26/19 Sven Tony R.N. 20:28 07/26/2019 Site #1 started via IV in the left antecubital space with an 20g angiocath, with aseptic technique and good blood return; one attempt. Blood drawn: rainbow set. Saline lock flushed with 10 mL saline. --20:28 07/26/19 Sven Tony R.N. 20:00 07/26/19. BP: 135/94. MAP: 107. --20:33 07/26/19 Martine Ceballos R.N. 20:41 07/26/19. BP: 134/88. MAP: 103. HR: 70. RR: 18. O2 saturation: 100%. Pain level now: 11/14. --20:42 07/26/19 Sven Tony R.N. Cardiac rhythm: normal sinus rhythm. Reassessment acuity: LEVEL 3. The patient is calm and has had no adverse reaction. Overall patient status is the same. GENERAL / NEURO / PSYCH: Alert. Oriented X 4. RESPIRATORY: No respiratory distress. Breath sounds normal. CVS: Capillary refill less than 2 seconds. SKIN: Skin is warm and dry. Two patient identifiers checked. Call light placed in reach. Side rails up x 2. Bed placed in lowest position. Patient waiting for lab results. --20:42 07/26/19 Sven Tony R.N. 20:43 07/26/2019 Acetaminophen PO Response: no adverse reaction pain is improving. Symptoms have improved the patient feels better. --20:43 07/26/19 Sven Tony R.N. Two patient identi fiers checked. Call light placed in reach. Side rails up x 2. Bed placed in lowest 3 Clinical Report - Nurses [facility] Emergency Department [address] [place] [address] Phone #: ext- [phone] 07/26/2019 19:46 Patient: ASHLEY GUPTA Sex: F : 1990 Age: 28y position. Brakes of bed on. --21:19 07/26/19 Sven Tony R.N. 21:18 07/26/19. BP: 123/86. MAP: 98. HR: 69. RR: 16. O2 saturation: 100%. Pain level now: 7. Describes the quality as aching and sharp. --21:19 07/26/19 Sven Tony R.N.DISPOSITION / DISCHARGE 21:32 07/26/2019 Site #1 removed upon discharge. Pressure dressing and bandaid applied. --21:32 07/26/19 Sven Tony R.N. Cardiac rhythm: normal sinus rhythm. Condition at departure: improved. No learning barriers present. Discharge instructions provided and reviewed with the patient. Reviewed warnings. Reviewed medication(s). Work note given. Patient verbalized understanding. Written instructions provided in [place] Islander. The patient was discharged by the nurse practitioner. She was discharged home. She left ambulatory and via private vehicle. Patient driving. Patient has no belongings. --21:33 07/26/19 Sven Tony R.N. 21:31 07/26/19. BP: 123/86. HR: 69. RR: 16. O2 saturation: 100%. Temp: 98.9 F. Pain level now 7/10. --21:33 07/26/19 Sven Tony R.N. Departure time: 21:33 07/26/2019. --21:34 07/26/19 Sven Tony R.N.Locked/Released at 07/26/2019 21:34 by Sven Tony R.N. Name Value Range Interpretation Code Description Data Isabella rce(s) Supporting Document(s) ID Date Data Source [id number] 07/26/2019 07:54:00 PM EDT [facility] 1 Clinical Report - Physicians/Mid Levels [facility] Emergency Department [address] [place] [address] Phone #: ext- [phone] 07/26/2019 19:46 [id number] 1990 Age: 28y Time Seen: 19:47 07/26/2019. Arrived- By private vehicle. Historian- patient. Disposition decision: 21:08 07/26/2019.HISTORY OF PRESENT ILLNESS Chief Complaint: SORE THROAT. This started about 6 days ago; Increasing pain from swollen glands under lower jaw and tongue is painful/swollen, sore throat. Has had this occur several times in past since about age 16. no known fever, other constitutional symptoms. Pain described as moderate. The patient has had a sore throat. No mouth sores, nasal discharge or congestion, ear pain or toothache. No swollen jaw or face or facial pain. She has had jaw pain (lower jaw). Similar symptoms previously. Patient has had similar symptoms several times. Recent medical care: The patient was seen recently at another facility in the emergency department (Seen at [facility] ED today and prescribed zyrtec and flonase).REVIEW OF SYSTEMSLast normal menstrual period- 26 Jul 2019. No fever, eye discomfort, cough, difficulty breathing or chestpain. No missed periods, abnormal bleeding, nausea, diarrhea or abdominal pain. No difficulty withurination, headache, fainting episodes, joint pain or skin rash. No vomiting. The patient has hadmoderately enlarged right submandibular and left submandibular lymph nodes.PAST HISTORYSee nurses notes. Additional Surgeries: no known surgeries. Medications: ZyrTEC Allergy Childrens Oral (Tablet Disintegrating 10 mg) 1 tablet, daily. Flonase Allergy Relief Nasal, daily. Vit D-Vit E-Safflower Oil External, daily. Allergies: No Known Drug Allergy.SOCIAL HISTORYCurrent every day smoker. Occasional alcohol use. No drug use. No recent travel.ADDITIONAL NOTESThe nursing notes have been reviewed with agreement regarding the chief complaint, HPI, ROS, PMH and 2 Clinical Report - Physicians/Mid Levels [facility] Emergency Department [address] [place] [address] Phone #: whd- [phone] 07/26/2019 19:46 Patient: ASHLEY GUPTA Sex: F : 1990 Age: 28y patient medications and allergies.PHYSICAL EXAMVital Signs: 07/26/2019 19:47 BP: 144. HR: 97. RR: 16. O2 saturation: 100%. Temp: 99.0 F. Have beenreviewed as abnormal and appear to be correct. Hypertensive. Mean arterial pressure- normal. Heartrate normal. Respiratory rate normal. Temperature normal. Oxygen saturation normal.Appearance: Alert. Anxious. Patient in mild distress. Distress appears due to anxiety.Head: Normal external inspection.Eyes: Pupils equal, round and reactive to light. Conjunctivae and eyelids normal.ENT: Ears normal. Nose normal. Pharynx normal. Lips normal. Gums normal. No trismus present.Uvula midline.Neck: Normal inspection. Moderate right submandibular and marked left submandibularlymphadenopathy present (firm, tender submandibular adenapathy L>R). Trachea midline. Thyroidnormal. Neck supple.CVS: Normal heart rate and rhythm. Heart sounds normal. Pulses normal.Respiratory: No respiratory distress. Painless inspiration. Breath sounds normal. Chest nontender.Abdomen: Soft and nontender. No organomegaly.Skin: Normal skin color. No rash. Normal skin turgor.Extremities: Extremities exhibit normal ROM. Extremities nontender.Neuro: Oriented X 3. No motor deficit. No sensory deficit. Reflexes normal.LABS, X-RAYS, AND EKGLaboratory Tests: Laboratory tests have been ordered, with results reviewed and considered in themedical decision making process. CBC w Diff: (JENNIFER: 07/26/2019 20:20) ( MsgRcvd 07/26/2019 20:33) Final results Test Result Flag Units (Reference) CBC W/AUTOMATED DIFF COMPLETE BLOOD COUNT WBC 12.7 H 10/uL (4.2 - 11.0) RBC 4.82 10/uL (4.20 - 5.40) HEMOGLOBIN 14.2 g/dL (12.0 - 16.0) HEMATOCRIT 42.0 % (37.0 - 47.0) MCV 87.1 fL (81.0 - 101) MCH 29.5 pg (27.0 - 34.0) MCHC 33.8 g/dL (31.0 - 36.0) RDW 11.4 L % (11.5 - 14.5) PLATELETS 364 10/uL (150 - 450) MPV 9.9 fL (7.4 - 10.4) NEUT 61.8 % (37.0 - 80.0) LYMPH 27.9 % (25.0 - 40.0) MONO 7.4 % (3.0 - 8.0) EOS 2.1 % (0.0 - 7.0) BASO 0.6 % (0.0 - 2.5) %IG 0.2 H % (0.0 - 0.0) %NRBC 0.0 % (0.0 - 0.0) #NEUT 7.82 H 10/uL (2.00 - 6.90) #LYMPH 3.53 H 10/uL (0.60 - 3.40) #MONO 0.94 H 10/uL (0.00 - 0.90) #EOS 0.27 10/uL (0.00 - 0.70) #BASO 0.07 10/uL (0.00 - 0.20) 3 Clinical Report - Physicians/Mid Levels [facility] Emergency Department [address] [place] [address] Phone #: ext- [phone] 07/26/2019 19:46 Patient: ASHLEY GUPTA Sex: F : 1990 Age: 28y #IG 0.03 10/uL (0.00 - 0.10) #NRBC 0.00 10/uL (0.00 - 0.00) MANUAL DIFF NOT INDICATED RBC MORPH NOT INDICATEDCMP: (JENNIFER: 07/26/2019 20:20) ( MsgRcvd 07/26/2019 20:55) Final results Test Result Flag Units (Reference) COMPREHENSIVE METABOLIC PANEL COMPREHENSIVE METABOLIC PANEL SODIUM 140 mEq/L (134 - 153) POTASSIUM 4.1 mEq/L (3.6 - 5.0) CHLORIDE 100 mEq/L (98 - 107) CO2 25 MEQ/L (22 - 30) GLUCOSE 86 MG/DL (65 - 110) BUN 6 L MG/DL (7 - 21) CREATININE 0.7 MG/DL (0.7 - 1.5) BUN/CREAT 9 (8 - 27) TOTAL PROTEIN 7.8 G/DL (6.3 - 8.2) ALBUMIN 5.1 H G/DL (3.9 - 5.0) GLOBULIN 2.7 GM/DL (2.4 - 3.2) A/G RATIO 1.9 (0.8 - 2.0) CALCIUM 10.0 MG/DL (8.4 - 10.2) TOTAL BILI 1.2 MG/DL (0.2 - 1.3) ALKALINE PHOS 73 U/L (38 - 126) SGOT/AST 18 U/L (5 - 40) SGPT/ALT 18 U/L (7 - 56) ANION GAP 15.0 mmol/L (8.0 - 16.0) AGE 28 yrs NON-AA GFR >60 mL/min AFR AMER GFR >60 mL/min Male GFR Interprentation 20-49 yrs >60 mL/min Mqefso33-48 yrs >56 mL/min Normal 60-69 yrs >49 mL/min Normal 70-79yrs>42 mL/min Normal 80 and above >35 mL/min Normal Female GFRInterpretation 20-39 yrs >60 mL/min Normal 40-49 yrs >58 mL/minNormal 50-59 yrs >51 mL/min Normal 60-69 yrs >45 mL/min Dnrgfm25-78 yrs >39 mL/min Normal 80 and above >32 mL/min NormalMonospot: (JENNIFER: 07/26/2019 20:20) ( [facility] [place]44[place] Final results Test Result Flag Units (Reference) MONO TEST NEGATIVE (NORMAL: NEGAT MONO REENTER NEGATIVE (NORMAL: NEGAT { KIT LOT # [id number] ){ KIT EXP [id number] ){ PROCEDURAL CONTROL VALID)CRP: (JENNIFER: 07/26/2019 20:20) ( [facility] [place] 20:55) Final results Test Result Flag Units (Reference) CRP-HS 2.87 MG/L (1.00 - 3.00) CDC/AHS HS-CRP CUT-OFF: RELATIVE RISK: <1.0 mg/LLow 1.0 - 3.0 mg/L Average >3.0 mg/LHigh Optimally, the average of HS-CRP results repeated two weeks apart should be used forrisk assessment.Rapid Strep Screen: (JENNIFER: 07/26/2019 20:30) ( [facility] [place] 20:55) Final results 4 Clinical Report - Physicians/Mid Levels [facility] Emergency Department [address] [place] [address] Phone #: ext- [phone] 07/26/2019 19:46 Patient: ASHLEY GUPTA Sex: F : 1990 Age: 28y Test Result Flag Units (Reference) RAPID STREP NEGATIVE (NORMAL: NEGAT RAPID STREP REENTER NEGATIVE (NORMAL: NEGAT { PROCEDURAL CONTROL VALID ){ KIT LOT # [id number] ){ KIT EXP DATE 10-03-20 )The Strep A 2 assay utilizes isothermal nucleic acid amplification technology fothe qualitative detection of Group A Strep bacterial nucleic acid in throat swabspecimens.All negative test results no longer need to be confirmed with a culture. Follow-up testing requiring a culture is necessary if clinical symptoms persist, or inthe event of an acute rheumatic fever outbreak. A culture will need to beordered by the Qualified Medical Provider.Negative results do not preclude infection with Group A Strep and should not beused as the sole basis for treatment..PROGRESS AND PROCEDURESCourse of Care: 21:41 Jul 26 2019. pt with 6 day hx of tender, enlarged submandibular adenapathy,likely infectious or inflammatory, will prescribe trial of abx/nsaids, recommend PCM f/u x 3 days, referral to[facility] for further eval, biopsy/ CT ST neck if symptoms persist. Advised return precautions. Disposition: Discharged home in good and improved condition. Discharge decision based on the following: patient's condition is stable; patient's condition is improved; patient is ambulatory; patient is active; patient's pain is controlled; patient's exam is stable; patient's exam is improved; minimally abnormal test results; improving condition on repeat evaluation; social support is adequate; transportation is available; follow-up is available; clinical impression is consistent with outpatient treatment.CLINICAL IMPRESSION Acute left lymphadenitis (submandibular).INSTRUCTIONS No strenuous activity until better. Do not work for two days. Rest at home for one days. Drink plenty of fluids for the next 48 hours. Do not smoke. No alcohol. Warnings: Further evaluation is necessary. It is very important to follow up with a healthcare provider. GENERAL WARNINGS: Return or contact your physician immediately if your condition worsens or changes unexpectedly, if not improving as expected, or if other problems arise. Specifically return if pain, vomiting, bleeding, breathing difficulty or fever. Your Current Medications: Your current home medications have been reviewed. CONTINUE TAKING THE FOLLOWING MEDICATIONS: Flonase Allergy Relief Nasal : daily. Vit D-Vit E-Safflower Oil External : daily. ZyrTEC Allergy Childrens Oral : Tablet Disintegrating 10 mg, 1 tablet daily. 5 Clinical Report - Physicians/Mid Levels [facility] Emergency Department [address] [place] [address] Phone #: ext- [phone] 07/26/2019 19:46 Patient: ASHLEY GUPTA Sex: F : 1990 Age: 28y Prescription Medications: clindamycin HCl 300 mg capsule Take 1 capsule every eight hours for 7 days -- for lymph node swelling. Dispense 21 capsule. Refills: 0. Substitution permitted. [phone] - [address] [place] [address]. . ibuprofen 800 mg tablet Take 1 tablet every eight hours for 10 days -- Dispense 30 tablet. Refills: 0. Substitution permitted. [phone] [address] [place] [address]. . Follow-up: Follow up with your healthcare provider in three days even if well. Call for the next available appointment. Reason for referral: evaluation and recommend ENT referral if symptoms persist. Summary of care provided to patient via paper. Understanding of the discharge instructions verbalized by patient. Expected course of illness, discharge instructions, activity level, prescriptions x2, follow-up appointment and risks and benefits of treatment reviewed with patient and understanding verbalized. Agrees to plan of care.(Electronically signed by NAZ Lopez 07/26/2019 21:45) Name Value Range Interpretation Code Description Data Isabella rce(s) Supporting Document(s) ID Date Data Source [id number] 07/26/2019 08:54:00 PM EDT [facility] Name Value Range Interpretation Code Description Data Isabella rce(s) Supporting Document(s) RAPID STREP NEGATIVE NORMAL: NEGATIVE [facility] RAPID STREP REENTER NEGATIVE NORMAL: NEGATIVE [facility] { PROCEDURAL CONTROL VALID ){ KIT LOT # [id number] ){ KIT EXP DATE 10-03-20 )The Strep A 2 assay utilizes isothermal nucleic acid amplification technology fothe qualitative detection of Group A Strep bacterial nucleic acid in throat swabspecimens.All negative test results no longer need to be confirmed with a culture. Follow-up testing requiring a culture is necessary if clinical symptoms persist, or inthe event of an acute rheumatic fever outbreak. A culture will need to beordered by the Qualified Medical Provider.Negative results do not preclude infection with Group A Strep and should not beused as the sole basis for treatment. ID Date Data Source [id number] 07/26/2019 08:55:00 PM EDT [facility] Name Value Range Interpretation Code Description Data [facility] rce(s) Supporting Document(s) C reactive protein [Mass/volume] in Serum or Plasma by High sensitivity method 2.87 MG/L 1.00 - 3.00 [facility] CDC/S HS-CRP CUT-OFF: RELATIVE RISK: <1.0 mg/L Low 1.0 - 3.0 mg/L Average >3.0 mg/L High Optimally, the average of HS-CRP results repeated two weeks apart should be used for risk assessment. ID Date Data Source [id number] 07/26/2019 08:55:00 PM EDT [facility] Name Value Range Interpretation Code Description Data Isabella rce(s) Supporting Document(s) COMPREHENSIVE METABOLIC PANEL [facility] COMPREHENSIVE METABOLIC PANEL Sodium [Moles/volume] in Serum or Plasma 140 mEq/L 134 - 153 [facility] Potassium [Moles/volume] in Serum or Plasma 4.1 mEq/L 3.6 - 5.0 [facility] Chloride [Moles/volume] in Serum or Plasma 100 mEq/L 98 - 107 [facility] Carbon dioxide, total [Moles/volume] in Serum or Plasma 25 MEQ/L 22 - 30 [facility] Glucose [Mass/volume] in Serum or Plasma 86 MG/DL 65 - 110 [facility] BUN 6 MG/DL 7 - 21 L [facility] al Creatinine [Mass/volume] in Serum or Plasma 0.7 MG/DL 0.7 - 1.5 [facility] BUN/CREAT 9 8 - 27 [facility] Protein [Mass/volume] in Serum or Plasma 7.8 G/DL 6.3 - 8.2 [facility] Albumin [Mass/volume] in Serum or Plasma 5.1 G/DL 3.9 - 5.0 H [facility] Globulin [Mass/volume] in Serum by calculation 2.7 GM/DL 2.4 - 3.2 [facility] A/G RATIO 1.9 0.8 - 2.0 [facility] Calcium [Mass/volume] in Serum or Plasma 10.0 MG/DL 8.4 - 10.2 [facility] Bilirubin.total [Mass/volume] in Serum or Plasma 1.2 MG/DL 0.2 - 1.3 [facility] Alkaline phosphatase [Enzymatic activity/volume] in Serum or Plasma 73 U/L 38 - 126 [facility] Aspartate aminotransferase [Enzymatic activity/volume] in Serum or Plasma 18 U/L 5 - 40 [facility] Alanine aminotransferase [Enzymatic activity/volume] in Seru m or Plasma 18 U/L 7 - 56 [facility] Anion gap 3 in Serum or Plasma 15.0 mmol/L 8.0 - 16.0 [facility] AGE 28 yrs [facility] al NON-AA GFR >60 mL/min [facility] ital AFR AMER GFR >60 mL/min [facility] sp[facility] Male GFR In terprentation 20-49 yrs >60 mL/min Normal 50-59 yrs >56 mL/min Normal 60-69 yrs >49 mL/min Normal 70-79yrs >42 mL/min Normal 80 and above >35 mL/min Normal Female GFR Interpretation 20-39 yrs >60 mL/min Normal 40-49 yrs >58 mL/min Normal 50-59 yrs >51 mL/min Normal 60-69 yrs >45 mL/min Normal 70-79 yrs >39 mL/min Normal 80 and above >32 mL/min Normal ID Date Data Source [id number] 07/26/2019 08:44:00 PM EDT [facility] Name Value Range Interpretation Code Description Data Isabella rce(s) Supporting Document(s) MONO TEST NEGATIVE NORMAL: NEGATIVE [facility] MONO REENTER NEGATIVE NORMAL: NEGATIVE [facility] { KIT LOT # [id number] ){ KIT EXP DATE 02-03-21 ){ PROCEDURAL CONTROL VALID ) ID Date Data Source [id number] 07/26/2019 08:33:00 PM EDT [facility] Name Value Range Interpretation Code Description Data Isabella rce(s) Supporting Document(s) CBC W/AUTOMATED DIFF [facility] COMPLETE BLOOD COUNT Leukocytes [#/volume] in Blood by Automated count 12.7 10^3/uL 4.2 - 11.0 H [facility] Erythrocytes [#/volume] in Blood by Automated count 4.82 10^6/uL 4. 20 - 5.40 [facility] Hemoglobin [Mass/volume] in Blood 14.2 g/dL 12.0 - 16.0 [facility] Hematocrit [Volume Fraction] of Blood by Automated count 42.0 % 3 7.0 - 47.0 [facility] Erythrocyte mean corpuscular volume [Entitic volume] by Auto mated count 87.1 fL 81.0 - 101 [facility] Erythrocyte mean corpuscular hemoglobin [Entitic mass] by Automated count 29.5 pg 27.0 - 34.0 [facility] Erythrocyte mean corpuscular hemoglobin concentration [Mass/volume] by Automated count 33.8 g/dL 31.0 - 36.0 [facility] Erythrocyte distribution width [Ratio] by Automated count 11.4 % 11.5 - 14.5 L [facility] Platelets [#/volume] in Blood by Automated count 364 10^3/uL 150 - 45 0 [facility] Platelet mean volume [Entitic volume] in Blood by Automated count 9.9 fL 7.4 - 10.4 [facility] Neutrophils/100 leukocytes in Blood by Automated count 61.8 % 37. 0 - 80.0 [facility] Lymphocytes/100 leukocytes in Blood by Manual count 27.9 % 25.0 - 40.0 [facility] Monocytes/100 leukocytes in Blood by Automated count 7.4 % 3.0 - 8.0 [facility] Eosinophils/100 leukocytes in Blood by Automated count 2.1 % 0.0 - 7.0 [facility] Basophils/100 leukocytes in Blood by Automated count 0.6 % 0.0 - 2.5 [facility] %IG 0.2 % 0.0 - 0.0 H [facility] al %NRBC 0.0 % 0.0 - 0.0 [facility] al Neutrophils [#/volume] in Blood by Automated count 7.82 10^3/uL 2.00 - 6.90 H [facility] Lymphocytes [#/volume] in Blood by Automated count 3.53 10^3/uL 0.60 - 3.40 H [facility] Monocytes [#/volume] in Blood by Automated count 0.94 10^3/uL 0.00 - 0.90 H [facility] Eosinophils [#/volume] in Blood by Automated count 0.27 10^3/uL 0.00 - 0.70 [facility] Basophils [#/volume] in Blood by Automated count 0.07 10^3/uL 0.00 - 0.20 [facility] #IG 0.03 10^3/uL 0.00 - 0.10 [facility] ospital #NRBC 0.00 10^3/uL 0.00 - 0.00 [facility] MANUAL DIFF NOT INDICATED [facility] RBC MORPH NOT INDICATED [facility] spital ID Date Data Source [id number] 05/23/2019 03:25:00 PM EDT [facility] Name Value Range Interpretation Code Description Data Isabella rce(s) Supporting Document(s) Vitamin D,Total (25OH) 30.0-100.0 Below low normal [facility] Reference Range: <10 ng/mL: Deficien t 10-30 ng/mL: Insufficient 30-100 ng/mL: Sufficient >100 ng/mL: Toxicity possible Procedure Vital Signs ID Date Data Source UNK Name Value Range Interpretation Code Description Data Source(s) Body mass index (BMI) [Ratio] 20.2 kg/m2 20.2 k g/m2 [facility] ([facility], [facility]) Body height 61 [in_i] 61 [in_i] [facility] ([facility], [facility]) 5'1" Body weight 107.00 [lb_av] 107.00 [lb_av] [facility] T ([facility], [facility]) Body temperature 98.7 [degF] 98.7 [degF] [facility] ([facility], [facility]) Oxygen saturation in Arterial blood by Pulse oximetry 99 % 99 % [facility] ([facility], [facility]) Respiratory rate 16 /min 16 /min [facility] ( [facility], [facility]) Heart rate 103 /min 103 /min [facility] ([facility], [facility]) Diastolic blood pressure 64 mm[Hg] 64 mm[Hg] [facility] ([facility], [facility]) Systolic blood pressure 110 mm[Hg] 110 mm[Hg] [facility]) Body weight 50.803 kg 50.803 kg [facility] ([facility]) Body mass index (BMI) [Ratio] 21.2 kg/m2 21.2 k g/m2 [facility] ([facility]) Body weight 112.00 [lb_av] 112.00 [lb_av] [facility] T ([facility]) Body height 61 [in_i] 61 [in_i] [facility] ([facility]) 5'1" Body weight 50.803 kg 50.803 kg [facility] ([facility]) Body mass index (BMI) [Ratio] 21.2 kg/m2 21.2 k g/m2 [facility] ([facility]) Body weight 112.00 [lb_av] 112.00 [lb_av] [facility] T ([facility]) Body height 61 [in_i] 61 [in_i] [facility] ([facility]) 5'1"
[2020-04-22] MEDS ORDERED: ONDANSETRON 4MG/2ML VIAL As Ordered ONE (08:21)
[2020-04-22] MEDS ORDERED: CEFUROXIME INJ 1.5 GM VIAL (J0697 PER 750MG) As Ordered ONE (10:50)
[2020-04-22] MEDS ORDERED: fentaNYL 100 MCG/2 ML INJECTION (J3010) As Ordered ONE (10:56)
[2020-04-22] MEDS ORDERED: ESMOLOL INJ 100MG/10ML VIAL As Ordered ONE (11:24)
[2020-04-22] MEDS ORDERED: BACITRACIN OINTMENT 30GM TUBE As Ordered ONE (13:27)
[2020-04-22] MEDS ORDERED: PROPOFOL 1,000 MG/100 ML VIAL As Ordered ONE (14:48)
[2020-04-22] MEDS ORDERED: oxyCODONE 5MG TAB PO PRN (15:15)
[2020-04-22] MEDS ORDERED: LR 1,000 ML IV SCH (15:15)
[2020-04-22] MEDS ORDERED: fentaNYL 100 MCG/2 ML INJECTION (J3010) IV PRN (15:15)
[2020-04-22] MEDS ORDERED: ONDANSETRON 4MG/2ML VIAL IV PRN (15:15)
[2020-04-22 15:22] LABS: ABG BASE EXCESS -4.1 (-2.0-2.0); ABG HCO3 22.3 MEQ/L (22.0-26.0); ABG O2 SATURATION 98.5 % (95.0-99.0); ABG PARTIAL PRESSURE CO2 46.2 mmHg (35.0-45.0); ABG STANDARD HCO3 21.1 MEQ/L (22.0-26.0); ABG TOTAL CO2 23.7 MEQ/L (22.0-29.0); ABG pH (ARTERIAL) 7.302 UNITS (7.350-7.450)
[2020-04-22 15:30] LABS: BASO % 0.1 % (0.0-1.0); HEMATOCRIT 34.8 % (36.0-47.0); HEMOGLOBIN 11.2 g/dl (12.0-15.5); LYMPH # 1.1 10^3/uL (1.5-5.0); LYMPH % 7.2 % (24.0-44.0); MEAN CORPUSCULAR HEMOGLOBIN 28.5 pg (27.0-33.0); MEAN CORPUSCULAR HGB CONC 32.2 g/dl (32.0-36.5); MEAN CORPUSCULAR VOLUME 88.5 fl (80.0-96.0); MONO # 0.5 10^3/uL (0.0-0.8); MONO % 3.2 % (2.0-8.0); NEUTROPHILS % 89.2 % (36.0-66.0); PLATELET COUNT, AUTOMATED 263 10^3/uL (150-450); RED BLOOD COUNT 3.93 10^6/uL (4.00-5.40); WHITE BLOOD COUNT 14.6 10^3/uL (4.0-10.0)
--- NOTE | 2020-04-22 15:49 | REP ---
INDICATION: POST OP IN PACU. COMPARISON: No comparison study.. TECHNIQUE: Portable semi-erect AP chest radiograph. FINDINGS: An endotracheal tube is seen in good position at the level of the proximal clavicles. There are skin naldo across the base of the neck. There is pneumomediastinum and subcutaneous emphysema in the soft tissues of the neck on the right. There are bilateral pneumothoraces, moderate on the right and small on the left. Mild platelike atelectasis present in the left lower lobe. The lung posada are otherwise clear. Heart is not enlarged. IMPRESSION: Bilateral pneumothoraces, right larger than left. Pneumomediastinum and some subcutaneous emphysema is seen in the neck. Mild platelike atelectasis left base. Critical Findings: Bilateral pneumothoraces, right larger than left. The critical information above was relayed directly by me by telephone to Chago Kwon on 04/22/2020 at 3:45 pm with readback verification. <Electronically signed by Sonny Welch > 04/22/20 [id number]
[2020-04-22 15:51] LABS: BLOOD UREA NITROGEN 9 MG/DL (7-18); CALCIUM LEVEL 7.8 MG/DL (8.5-10.1); CARBON DIOXIDE LEVEL 24 MEQ/L (21-32); CHLORIDE LEVEL 109 MEQ/L (98-107); CREATININE FOR GFR 0.93 MG/DL (0.55-1.30); GLOMERULAR FILTRATION RATE > 60.0 (>60); GLUCOSE, FASTING 168 MG/DL (70-100); POTASSIUM SERUM 4.6 MEQ/L (3.5-5.1); SODIUM LEVEL 140 MEQ/L (136-145)
[2020-04-22 16:05] LABS: PTH INTACT 17.5 PG/ML (18.5-88.0)
[2020-04-22] MEDS ORDERED: propofoL 1,000 MG in IV 1 EA IV SCH (16:42)
--- NOTE | 2020-04-22 17:02 | REP ---
INDICATION: POST OP IN PACU CHEST TUBE INSERTION. COMPARISON: Comparison chest radiograph 3:19 p.m. on 04/22/2020.. TECHNIQUE: Portable supine chest radiograph 4:44 p.m. film. FINDINGS: Bilateral pleural drainage catheters have been inserted. Both lungs have reinflated. There is no discernible pneumothorax on the current radiograph. There is pneumomediastinum. Endotracheal tube remains in good position. Some soft tissue emphysema is seen in the supraclavicular soft tissues and the in the base of the neck. IMPRESSION: Bilateral chest tubes in place. Both lungs are reinflated. No visible pneumothorax. Endotracheal tube and pneumomediastinum persist. <Electronically signed by Sonny Welch > 04/22/20 0104
[2020-04-22] MEDS: PANTOPRAZOLE 40MG VIAL (C9113 PER 1) IV SCH (17:36)
[2020-04-22] MEDS: dexameTHASONE 20MG/5ML VIAL (J1100 PER 1MG) IV SCH (17:37)
[2020-04-22] MEDS: MIDAZOLAM INJ 2MG/2ML VIAL (J2250 PER 1MG) IV PRN ×4 (17:44→22:01)
[2020-04-22] MEDS ORDERED: propofoL 2,400 MG in IV 1 EA IV SCH (17:45)
[2020-04-22 18:27] LABS: ABG BASE EXCESS -0.6 (-2.0-2.0); ABG HCO3 21.4 MEQ/L (22.0-26.0); ABG O2 SATURATION 99.4 % (95.0-99.0); ABG PARTIAL PRESSURE CO2 27.8 mmHg (35.0-45.0); ABG PARTIAL PRESSURE O2 216.1 mmHg (75.0-100.0); ABG STANDARD HCO3 24.1 MEQ/L (22.0-26.0); ABG TOTAL CO2 22.2 MEQ/L (22.0-29.0); ABG pH (ARTERIAL) 7.504 UNITS (7.350-7.450)
[2020-04-22] MEDS: BACITRACIN OINTMENT 30GM TUBE TOP SCH (18:29)
--- NOTE | 2020-04-22 18:38 | CCN ---
CRITICAL CARE NOTE DATE: 04/22/2020 Critical care time was 55 minutes. This excludes all procedures. SUBJECTIVE: I was urgently to the patient's bedside postop. Apparently the patient had failed extubation, reportedly had paralyzed vocal cords on reintubation. Chest x-ray showed bilateral pneumothoraces. Thoracic surgeon was called by a physician, however he was 25 minutes out so the ENT surgeon asked for my help at the bedside. I placed bilateral chest tubes. After that I evaluated the patient. HISTORY OF PRESENT ILLNESS: The patient is a 29-year-old female status post thyroidectomy for papillary carcinoma. I was unable to obtain any past medical history or other history because of the critical illness. PMHx: Based on Anesthesia's history, the patient has a history of a goiter, thyroid cancer diagnosed February 2020, history of migraines. SOCIAL HISTORY: Smokes. REVIEW OF SYSTEMS: The patient's review of systems was unobtainable. FAMILY HISTORY: The patient's family history was unobtainable. ALLERGIES: NO KNOWN DRUG ALLERGIES IN THE COMPUTER. PHYSICAL EXAMINATION: GENERAL APPEARANCE: The patient is sedated on mechanical ventilation but does move extremities appropriately. VITAL SIGNS: Temperature is 98.3, pulse is 88, respiratory rate is 15, blood pressure is 142/84 with a mean arterial pressure of 103. Oxygen saturation is 60% on 100% 0.60 FiO2. HEENT: Sclerae clear. Nares clear. Pupils are equal, round and reactive to light. Mucous membranes are moist without lesions. Tongue is midline. NECK: Fresh postop with stable line intact. Drains with minimal and serous drainage. LUNGS: Clear to auscultation without rales, rhonchi or wheezes after chest tubes have been placed. CARDIAC: Regular S1, S2, without audible murmurs, rubs or gallops. No elevated JVP. ABDOMEN: Soft, nontender, nondistended, no hepatosplenomegaly, masses or hernia. EXTREMITIES: No clubbing, cyanosis, or edema. LABORATORY EVALUATION: White blood cell count of 14.6, hemoglobin of 11.2 with a platelet count of 263, neutrophilia of 89. Sodium is 140, potassium is 4.6, chloride is 109, bicarbonate of 24, BUN of 9, creatinine of 0.93 with a glucose of 168, calcium of 7.8, I-didier of 4.1, PTH of 17.5. Arterial blood gas shows a pH of 7.30, pco2 46, pa02 of 131. IMAGING: Post procedure chest x-ray showed bilateral chest tubes, fairly advanced into the pleural space. The left was pulled back by 2 more cm; otherwise clear with near resolution of both bilateral pneumothoraces. IMPRESSION: A 29-year-old female with recent thyroidectomy, ventilatory failure, likely from vocal cord paralysis; not sure if this is temporary or permanent. PLAN: 1. Respiratory failure - continue mechanical ventilation. Awake in the morning. ENT will have to perform exam to ensure vocal cord function prior to extubation. Chest tubes will remain in place until the patient is extubated or determined not to have an air leak, whichever comes first. 2. Bilateral pneumothoraces as mentioned above remain on negative 20 centimeters water pressure for the night. We will place a water seal tomorrow. 3. GI prophylaxis with Protonix depending on duration of intubation, we will start tube feeds if the patient requires tracheostomy. 4. DVT prophylaxis Heparin when surgically appropriate. DANIEL
[2020-04-22] MEDS: propofoL 2,400 MG in IV 1 EA IV SCH (18:51)
--- NOTE | 2020-04-22 19:13 | RO ---
OPERATIVE NOTE DATE OF OPERATION: 04/22/2020 PROCEDURE: Left lateral chest tube placement. PRE-PROCEDURE DIAGNOSIS: Left pneumothorax. POST-PROCEDURE DIAGNOSIS: Left pneumothorax. SURGEON: Lalo Coleman DO ASSISTANTS: None. DESCRIPTION OF PROCEDURE: I was asked to urgently present to the patient's bedside by Dr. Mcqueen for bilateral pneumothoraces. Consent was not obtained as this was emergent and lifesaving. The patient was prepped and draped in a sterile manner. Chlorhexidine and sterile drape was used. Then, 1% lidocaine was then instilled subcutaneously in the fifth midclavicular line just over the rib. There was a sanchez of air upon entering the pleura, wire was fed through the 18 gauge needle. A ashley in the skin was made and the trocar with 14 tanzanian arrow percutaneous drain catheter was advanced This was placed via modified Seldinger technique into the pleural space. This was sutured in at 22, and then after chest x-ray, pulled back another 2 cm and resutured. The tube was attached to Pleur-evac with positive air leak. No observed complication. The lung appears reinflated on CXR. MTDD
--- NOTE | 2020-04-22 19:31 | RO ---
OPERATIVE NOTE DATE OF OPERATION: 04/22/2020 PROCEDURE: Right lateral chest tube. PRE-PROCEDURE DIAGNOSIS: Right pneumothorax. POST-PROCEDURE DIAGNOSIS: Right pneumothorax. SURGEON: Lalo Coleman DO ASSISTANTS: None. CONSENT: Urgent emergent procedure, no consent was obtained. DESCRIPTION OF PROCEDURE: The patient was in recovery with bilateral pneumothoraces after ventilatory failure. I was called urgently to the bedside to place chest tubes. The right chest wall was prepped in a sterile manner. The fifth intercostal space was marked. Lidocaine was introduced subcutaneously. Upon entering the pleura, there was a sanchez of air. Wire was fed through the 18 gauge needle. A ashley in the skin was made after the needle was removed and the 14 thai percutaneous drainage catheter was placed over the rib with return of air. Wire was removed. There was air leak when attached to the Pleur- evac. This was sutured in place at 20 cm. There were no observed complications. Post-procedure chest x-ray showed improvement of pneumothorax. DANIEL
[2020-04-22] MEDS: IPRATROPIUM 0.5MG/ALBUTEROL 2.5MG INH SOL UD 3ML (DUONEB) NEB SCH (19:55)
[2020-04-22] MEDS: MORPHINE 2 MG/ML 1ML VIAL (J2270) IV PRN (20:27)
[2020-04-22] MEDS: CHLORHEXIDINE GLUCONATE 0.12 % 15ML UDC (PERIDEX ORAL RINSE) MT SCH (20:27)
[2020-04-23] VITALS (53 sets, daily range): BP systolic 104–140; BP diastolic 51–85
[2020-04-23] MEDS: BACITRACIN OINTMENT 30GM TUBE TOP SCH ×3 (00:48→16:18)
[2020-04-23] MEDS: MIDAZOLAM INJ 2MG/2ML VIAL (J2250 PER 1MG) IV PRN ×12 (01:49→19:36)
[2020-04-23] MEDS: dexameTHASONE 20MG/5ML VIAL (J1100 PER 1MG) IV SCH ×3 (01:49→17:29)
[2020-04-23] MEDS: MORPHINE 2 MG/ML 1ML VIAL (J2270) IV PRN ×4 (03:14→10:24)
[2020-04-23 04:45] LABS: HEMATOCRIT 37.1 % (36.0-47.0); MEAN CORPUSCULAR HEMOGLOBIN 28.4 pg (27.0-33.0); MEAN CORPUSCULAR HGB CONC 32.3 g/dl (32.0-36.5); MEAN CORPUSCULAR VOLUME 87.9 fl (80.0-96.0); PLATELET COUNT, AUTOMATED 277 10^3/uL (150-450); RED BLOOD COUNT 4.22 10^6/uL (4.00-5.40); WHITE BLOOD COUNT 16.6 10^3/uL (4.0-10.0)
[2020-04-23] MEDS: propofoL 2,400 MG in IV 1 EA IV SCH ×2 (05:07→14:29)
[2020-04-23 05:21] LABS: ALBUMIN 3.1 GM/DL (3.2-5.2); ALT/SGPT 23 U/L (12-78); BLOOD UREA NITROGEN 8 MG/DL (7-18); CALCIUM LEVEL 7.8 MG/DL (8.5-10.1); CARBON DIOXIDE LEVEL 25 MEQ/L (21-32); CHLORIDE LEVEL 109 MEQ/L (98-107); CREATININE FOR GFR 0.68 MG/DL (0.55-1.30); GLOMERULAR FILTRATION RATE > 60.0 (>60); GLUCOSE, FASTING 140 MG/DL (70-100); POTASSIUM SERUM 3.9 MEQ/L (3.5-5.1); SODIUM LEVEL 142 MEQ/L (136-145); TOTAL PROTEIN 5.6 GM/DL (6.4-8.2)
[2020-04-23 05:55] LABS: ABG BASE EXCESS -1.9 (-2.0-2.0); ABG HCO3 21.1 MEQ/L (22.0-26.0); ABG O2 SATURATION 97.2 % (95.0-99.0); ABG PARTIAL PRESSURE CO2 30.7 mmHg (35.0-45.0); ABG PARTIAL PRESSURE O2 88.6 mmHg (75.0-100.0); ABG STANDARD HCO3 22.9 MEQ/L (22.0-26.0); ABG pH (ARTERIAL) 7.454 UNITS (7.350-7.450)
[2020-04-23] MEDS: IPRATROPIUM 0.5MG/ALBUTEROL 2.5MG INH SOL UD 3ML (DUONEB) NEB SCH ×4 (07:24→19:57)
--- NOTE | 2020-04-23 08:02 | REP ---
INDICATION: BILATERAL PNEUMOTHORAX COMPARISON: 04/22/2020 TECHNIQUE: Portable AP view of the chest FINDINGS: Endotracheal tube, nasogastric tube, and bilateral chest tubes are in stable satisfactory position. A small amount of pneumomediastinum is suggested along with small amount of subcutaneous emphysema at the thoracic inlet. No obvious pneumothorax identified. The bilateral lung posada without consolidation or effusion. Skeletal structures are intact. IMPRESSION: 1. Lines and tubes in satisfactory stable position. 2. Small amount of pneumomediastinum and subcutaneous emphysema suggested. 3. No obvious pneumothorax, acute consolidation or effusion. <Electronically signed by Cameron Donaldson > 04/23/20 0753
[2020-04-23] MEDS ORDERED: HYDROmorphone HCL 2 MG/ML 1ML VIAL (J1170) As Ordered ONE (08:09)
[2020-04-23] MEDS: CHLORHEXIDINE GLUCONATE 0.12 % 15ML UDC (PERIDEX ORAL RINSE) MT SCH ×2 (08:38→20:48)
--- OUTSIDE RECORDS SUMMARY | 2020-04-23 10:46 | CCD ---
Author Author [facility] Organization [facility] Address Unknown Phone Unavailable Care Team Providers Care Global Sourcing Manager Name Role Phone Tim [phone] MD Caden ROMEO Unavailable Tim [phone] MD Caden ROMEO Unavailable Tim [phone] MD Caden MD Unavailable Tim, [id number] MD Caden MD Unavailable Tim, [id number] MD Caden MD Unavailable Tim, [id number] MD Caden MD Unavailable Tim, [id number] MD Caden MD Unavailable Tim, [id number] MD Caden MD Unavailable Tim, [id number] MD Caden MD Unavailable Tim, [id number] MD Caden MD Unavailable Tim, [id number] MD Caden MD Unavailable Tim, [id number] MD Caden MD Unavailable Tim, [id number] MD Caden MD Unavailable Tim, [id number] MD Caden MD Unavailable Tim, [id number] MD Caden MD Unavailable Tim, [id number] MD Caden MD Unavailable Tim, [id number] MD Caden MD Unavailable Tim, [id number] MD Caden MD Unavailable Tim, [id number] MD Caden MD Unavailable Tim, [id number] MD Caden MD Unavailable Tim, [id number] MD Caden MD Unavailable Tim, [id number] MD Cadne MD Unavailable Tim, [id number] MD Caden MD Unavailable Tim, [id number] MD Caden MD Unavailable Tim, [id number] MD Caden MD Unavailable Tim, [id number] MD Caden ROMEO Unavailable Tim, [id number] MD Caden ROMEO Unavailable Tim, [phone] MD Caden ROMEO Unavailable Tim, [id number] MD Caden ROMEO Unavailable Tim, [id number] MD Caden ROMEO Unavailable Tim, [id number] MD Caden ROMEO Unavailable Last Rodriguez MD Unavailable Unavailable Last Rodriguez MD Unavailable Unavailable Last Rodriguez MD Unavailable Unavailable Last Rodriguez MD Unavailable Unavailable Last Rodriguez MD Unavailable Unavailable Last Rodriguez MD Unavailable Unavailable Angelic MCQUEEN MD Unavailable Unavailable Angelic MCQUEEN MD Unavailable Unavailable Angelic MCQUENE MD Unavailable Unavailable Angelic MCQUEEN MD Unavailable [...] Unavailable Angelic MCQUEEN MD Unavailable Unavailable Angelic MCUQEEN MD Unavailable Unavailable Angelic MCQUEEN MD Unavailable [...] Fish, J Almas Unavailable Unavailable Fish, J Alams Unavailable Unavailable Fish, J Almas Unavailable Unavailable [...] is protected by Article 27-F of the [facility] Public Health law. If you continue you may have access to information: Regarding HIV / AIDS; Provided by facilities licensed or operated by the [facility] Office of Mental Health; or Provided by the [facility] Office for People With Developmental Disabilities. If such information is present, then the following [facility] mandated warning applies: This information has been [...] law may result in a fine or residential sentence or both. A general authorization for the release of medical or other information is NOT sufficient authorization for further disc losure. Family History Family Member Name Family Member Gender Family Member Status Date o f Status Description Data Source(s) Unknown Male Problem [facility] ([facility] Unknown Female Problem [facility] ([facility] ) Encounters Encounter Providers Location Date Indications Data Source(s ) Outpatient Attender: [id number] [facility]/24/2020 12:57:00 PM EST - 03/24/2020 12:58:00 PM EST [facility] Patient discharged. Outpatient Attender: LEROY orlando 02/19/2020 11:30:00 AM EST [facility] ([facility] devendra, [facility]) Outpatient Admitter: Last Rodriguez MDReferrer: Last Rodriguez MD 01/08/2020 12:00:00 AM EST Disorder of thyroid, unspecified [facility] Disorder of thyroid, unspecified Outpatient Admitter: Last Rodriguez MDReferrer: Last Rodriguez MD 11/01/2019 12:00:00 AM EDT Nontoxic single thyroid nodule [facility] Nontoxic single thyroid nodule Outpatient Attender: Nikki Ordaz DDS [facility] 08/14/2019 07:32:[address] [facility] Outpatient Attender: JAKE Mcqueen/Florin/Salty/Carlos A shah 08/14/2019 02:00:00 PM EDT [facility] ([facility], ) Emergency Attender: KRISH Manuelsultant: Almas [facility] 07/26/2019 07:54:00 PM EDT - 07/26/2019 09:34:00 PM EDT [facility] Patient discharged. Outpatient Attender: Caden Dumont MDAttender: [phone] Caden Dumont MD [facility] 05/23/2019 10:52:00 AM EDT - 05/23/2019 10:53:00 AM EDT [facility] Patient discharged. Medications Medication Brand Name Start [...] type / Coverage type Policy ID Covered republican ID Covered republican's relationship to rees Policy Rees Plan Information [facility] COMMUNITY PLAN MCDO [id number] SP [id number] [facility] COMMUNITY PLAN MCDO [id number] SP [id number] [facility] COMMUNITY PL [id number] S [id number] [facility](MCAID) O [id number] S [id number] [facility] U [id number] Self [id number] [facility] I [id number] Self [id number] [facility] COMMUNITY PLAN [facility] [id number] SP [id number] United [employer] Essential Plan P [id number] S [id number] [facility] COMMUNITY PLAN XIX [id number] 18 [id number] [facility] [id number] SP [id number] [facility] Hmo Commercial [id number] Self [id number] [facility] Community Plan Commercial [id number] Self [id number] [facility] COMMUNITY PL [id number] S [id number] [facility] Hmo Commercial [id number] Self [id number] [facility] Community Plan Commercial [id number] Self [id number] United [employer] Hmo Commercial [id number] Self [id number] [facility] COMMUNITY PLAN [facility] [id number] SP [id number] [facility](MCA[facility]) O [id number] S [id number] United [employer] Essential Plan P [id number] S [id number] United [employer] Essential Plan P [id number] S [id number] [facility] COMMUNITY PLAN [facility] [id number] SP [id number] Self Pay P UNAVAILABLE S UNA[place]IL[place] BLE [facility] COMMUNITY PLAN MCDO [id number] SP [id number] [facility] COMM[facility] [id number] SP [id number] [facility] COMMUNITY PLAN [facility] [id number] SP [id number] SELF PAY UNAVAILABLE SP UNAVAILA BLE [facility] Community Plan Commercial Self D Managed Care United Healthcare P [id number] S [id number] Medicaid Dental P [id number] S [id number] MEDICAID M [id number] S [id number] MEDICAID [id number] SP [id number] Problems, Conditions, and Diagnoses Code Display Name Description Problem Type Effective Dates Data Source(s) E07.9 Disorder of thyroid, unspecified Disorder of thy roid, unspecified Diagnosis 01/08/2020 02:29:[address] 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 F1010 Alcohol abuse, uncomplicated Alcohol abuse, uncomplica nancy Diagnosis 07/26/2019 07:54:00 PM EDT [facility] K80576 Nicotine dependence, cigarettes, uncompl icated Nicotine dependence, cigarettes, uncomplicated Diagnosis 07/26/2019 07:54:00 PM EDT [facility] L040 Acute lymphadenitis of face, head and ne ck Acute lymphadenitis of face, head and neck Diagnosis 07/26/2019 07:54:00 PM EDT [facility] J029 Acute pharyngitis, unspecified Acute pharyngitis, unsp ecified Diagnosis 07/26/2019 07:54:00 PM [facility] Z79.899 Other snf (current) drug therapy O THER INTERMEDIATE (CURRENT) DRUG THERAPY Diagnosis 05/23/2019 10:52:00 AM EDT [facility] H20.9 Unspecified iridocyclitis UNSPECIFIED IRIDOCYCLITIS Di agnosis 05/23/2019 10:52:00 AM EDT [facility] L50.9 Urticaria, unspecified URTICARIA, UNSPECIFIED Diagnosi s 05[facility]23[facility]2019 [facility] Relapsing polychondritis RELAPSING POLYCHONDRITIS Diag nosis 05/23/2019 10:52:[address] 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 Surgeries/Procedures Procedure Description Date Indications Data Source(s) FINE NEEDLE ASPIRATE FINE NEEDLE ASPIRATE Routine 11/01/2019 12:00 AM EDT 11/01/2019 12:00:[address] [facility] OFFICE OUTPATIENT VISIT 10 MINUTES OFFICE/OUTPATIENT VISIT E ST 05/23/2019 12:00:[address] [facility] 25 HYDROXY INCLUDES FRACTIONS IF PERFORMED VITAMIN D 25 HYDR OXY 05/23/2019 12:00:[address] [facility] COLLECTION VENOUS BLOOD VENIPUNCTURE ROUTINE VENIPUNCTURE 12:00:[address] [facility] Results ID Date Data Source [id number] 04/21/2020 12:00:00 PM EST [facility] Name Value Range Interpretation Code Description Data Isabella rce(s) Supporting Document(s) SARS coronavirus 2 RNA [Presence] in Res piratory specimen by ASA with probe detection NEGATIVE [facility] This lab was ordered by [facility] a nd reported by [facility]. ID Date Data Source [id number] 02/19/2020 12:00:00 AM EST [facility] Name Value Range Interpretation Code Description Data Isabella rce(s) Supporting Document(s) SARS coronavirus 2 Ag [facility] This lab was ordered by [facility] and reported by [facility]. ID Date Data Source [id number] 01/10/2020 03:39:00 PM [facility] CYTOPATHOLOGY REPORTName: IAM GUPTA LARMRN: [id number] Number: [id number] Date: 01/08/2020 00:00Received Date: 01/08/2020 15:54Physician(s): LAST RODRIGEUZ MD Haghir, Shahandeh MD Specimen(s) ReceivedA: THYROID, LEFT, FINE NEEDLE ASPIRATION, CONSULTATION, [id number](01/07/2020)Clinical History:29 year old female with left thyroid nodule FNA performed 01/07/20,preliminary evaluation at [facility], suspicious formalignancy, submitted for consultation.DiagnosisTHYROID, LEFT, FINE NEEDLE ASPIRATION, CONSULTATION, [id number](01/07/2020): SUSPICIOUS FOR MALIGNANCY (SEE MICROSCOPIC DESCRIPTION) Comment/ctsReviewing [...] case./cts /bs Gross DescriptionReceived 1 slides labeled, "[id number], CandyHayy&rylanot; with correspondingpreliminary pathology report from [facility], Department ofLaboratories, [address] [place] [address]. [id number]. .This report may include one or more immunohistochemical stain results thatuse analyte specific reagents. All positive and negative controls havebeen reviewed by the attending pathologist and are satisfactory. The testswere developed and their performance characteristics determined by [facility] Pathololgy department. They have not been cleared or approved by [place] Food and Drug Administration. The FDA has determin ed that suchclearance or approval is not necessary. Name Value Range Interpretation Code Description Data Isabella rce(s) Supporting Document(s) ID Date Data Source [id number] 11/22/2019 12:00:00 AM EDT [facility] Leroy Gipson Rpa [facility] 1990[place] [address] Date of Exam: 11/22/2019PH#: Fax: [phone] EXAM: WRIST LEFT (COMPLETE) X-RAYCLINICAL INFORMATION: Pain.Four views.There is no acute fracture or destructive osseous lesion.SHEMAR Carlton/Miguel you for referring ASHLEY GUPTA to our office. Electronically Signed - ARSLAN HARRISON DO 11/23/19 12:35 Name Value Range Interpretation Code Description Data Isabella rce(s) Supporting Document(s) ID Date Data Source [id number] 11/01/2019 05:20:00 PM [facility] CYTOPATHOLOGY REPORTName: IAM GUPTA LARMRN: [id number] Number: [id number] Date: 11/01/2019 00:00Received Date: 11/01/2019 09:53Physician(s): LAST RODRIGUEZ MD HAGHIR, SHAHANDEH F, MD Copy To:JAKE MCQUEEN,MDSpecimen(s) ReceivedA: THYROID LEFT LOBE NODULE, FINE NEEDLE ASPIRATION, CONSULTATION,[id number] (10/23/2019)Clinical History:29 year old female with left thyroid nodule FNA performed 10/23/19,preliminary evaluation at [facility]: atypical cytology,suspicious for malignancy, submitted for consultation.DiagnosisTHYROID LEFT LOBE NODULE, FINE NEEDLE ASPIRATION, CONSULTA TION, [id number](10/23/2019): FOLLICULAR LESION/ ATYPIA OF UNDETERMINED SIGNIFICANCE(AUS) (SEE MICROSCOPIC DESCRIPTION)Comment/ctsReviewing Cytotech: BRANDON Early(ASCP) (IAC)Electronically Signed By Jose Manuel Lyon M.D. 11/01/2019 17:20:38Microscopic DescriptionThe specimen consists of [...] background. 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 Thnak you for allowing me to review this case./cts Gross DescriptionReceived 1 slide labeled "[id number], Ashley Gupta" with correspondingpathology report from [facility], Department ofLaboratories, [address] [place] [address]. [id number]. .This report may include one or more immunohistochemical stain results thatuse analyte specific reagents. All positive and negative controls havebeen reviewed by the attending pathologist and are satisfactory. The testswere developed and their performance characteristics determined by [facility] Pathololgy department. They have not been cleared or approved by [place] Food and Drug Administration. The [facility] has determined that suchclearance or approval is not necessary. Name Value Range Interpretation Code Description Data Isabella rce(s) Supporting Document(s) ID Date Data Source [id number] 10/23/2019 10:11:00 AM EDT [facility] ([facility], ) Name Value Range Interpretation Code Description Data [facility](s) Supporting Document(s) Microscopic observation [Identifier] in Unspecified specimen by Non- gynecological cytology method Laboratory test result [facility] ([facility]) SPECIMEN: FNA left thyroid no dule Specimen received in cytolyt SPECIMEN ADEQUACY: Satisfactory for evaluation CATEGORIZATION: Atypia of Undetermined Significance DESCRIPTIONS: Variable sized follicles with increased N/C ratio. The findings favor a reactive process or lymphocytic thyroiditis. COMMENTS: Please see complete consultation report [id number] from [facility]. 11/08/2019 - 1026 Signed KARY DUGAN(ASCP) 11/08/2019 1015 (Prelim) Signed Last Rodriguez MD 11/08/2019 1026 ID Date Data Source [id number] 09/28/2019 01:21:00 PM EDT [facility] ([facility], ) Name Value Range Interpretation Code Description Data Isabella rce(s) Supporting Document(s) Triiodothyronine (T3) Free [Mass/volume] in Serum or Plasma 3.0 pg/mL 2.2-4.0 Normal (applies to non-numeric results) [facility] ([facility], ) <content>note:<nlbl:demographic_changed> </content>
<content></content> ID Date Data Source [id number] 09/28/2019 01:21:00 PM EDT [facility] ([facility]) Name Value Range Interpretation Code Description Data Isabella rce(s) Supporting Document(s) Free T4 1.01 ng/dL 0.76-1.46 Normal (applies to non-numeric resul ts) [facility] ([facility], ) Thyroid Stimulating Hormone 5.060 uIU/ML 0.358-3.740 Above high vargas l [facility] ([facility]) ID Date Data Source [id number] 07/26/2019 07:54:00 PM EDT [facility] 1 OrderSheet [facility] Emergency Department [address] [place] [address] Phone #: ext- [phone] 07/26/2019 19:46 Patient: ASHLEY GUPTA Sex: F : 1990 Age: 28yWEIGHT:49.8 kg HEIGHT:61 inches BMI:20.8ALLERGIES: No Known Drug AllergyCHIEF COMPLAINT: sore throatDIAGNOSIS: LymphadenitisLAB ORDERSOrder Description Priority Entered Acknowledged InitialedCBC w Diff STAT 20:07/26/2019 20:24 Ozzie Tony; Sven NealCMP STAT 20:07/26/2019 20:24 Ozzie Tony; Sven NealMonospot STAT 20:07/26/2019 20:24 Ozzie Tony; Sven NealCRP STAT 20:15 07/26/2019 20:24 Ozzie Tony; Sven NealRapid Strep Screen STAT 20:15 07/26/2019 20:24 Ozzie Tony; Sven NealDIAGNOSTIC STUDY ORDERSOrder Description Priority Entered Acknowledged InitialedMEDICATION/IV/DRIP/FLUID ORDERSOrder Description Priority Entered Acknowledged InitialedAcetaminophen 1 g 20:15 07/26/2019 20:28 Chavo,PO X1 dose: 1000 Ozzie CHILDS; Sven Nealmg (NOW x1)GENERAL ORDERSOrder Description Priority Entered Acknowledged InitialedSaline Lock 20:15 07/26/2019 20:24 Ozzie Tony; Sven NealWarm blanket 20:07/26/2019 20:24 Ozzie Tony; Sven NealVitals 20:07/26/2019 20:24 Ozzie Tony; Sven Neal[Electronically signed by Sven Tony R.N. (:33 07/26/2019)][Electronically signed by Sven Tony R.N. (21:34 07/26/2019)] 2 OrderSheet [facility] Emergency Department [address] [place] [address] Phone #: ext- [phone] 07/26/2019 19:46 Patient: ASHLEY GUPTA Sex: F : 1990 Age: 28y[Electronically signed by Ozzie Cervantes (21:45 07/26/2019)][Electronically locked by Sven Tony R.N. (:33 07/26/2019)] Name Value Range Interpretation Code Description Data Isabella rce(s) Supporting Document(s) ID Date Data Source [id number] 07/26/2019 07:54:00 PM EDT [facility] 1 Medication Reconciliation Report [facility] Emergency Department [address] [place], [place] [address] Phone #: ext- [phone] 07/26/2019 19:46 Patient: ASHLEY GUPTA Sex: F [...] node swelling.Dispense 21 capsule. Refills: 0. Substitution permitted.[employer] [address] [place] [address]. .ibuprofen 800 mg tablet Take 1 tablet every eight hours for 10 days -- Dispense 30 tablet. Refills: 0.Substitution permitted.[employer] [address] [place] [address]. . -- NAZ Lopez Name Value Range Interpretation Code Description Data Isabella rce(s) Supporting Document(s) ID Date Data Source [id number] 07/26/2019 07:54:00 PM EDT [facility] 1 Medication Administration Record [facility] Emergency Department [address] [place] [address] Phone #: ext- [phone] 07/26/2019 19:46 Patient: ASHLEY GUPTA Sex: F : 1990 Age: 28yWeight: 49.8 kgHeight/Length: 61 inBMI: 20.8ALLERGIES: No Known Drug Allergy Date/Time Medication Administered Medication OrderedGiven ACETAMINOPHEN [PO] Acetaminophen 1 g PO X1 dose:20:28 07/26/2019 Dose: 1000 mg Tablets PO 1000 mg (NOW x1)Sven Tony R.N. Name Value Range Interpretation Code Description Data Isabella rce(s) Supporting Document(s) ID Date Data Source [id number] 07/26/2019 07:54:00 PM EDT [facility] 1 General Instructions [facility] Emergency Department [address] [place] [address] Phone #: ext- [phone] 07/26/2019 19:46 Patient: ASHLEY GUPTA Sex: F [...] node swelling.Dispense 21 capsule. Refills: 0. Substitution permitted.[employer] [address] ; [place] [address]. .ibuprofen 800 mg tablet Take 1 tablet every eight hours for 10 days -- Dispense 30 tablet. Refills: 0.Substitution permitted.[employer] [address] ; [place] [address]. .Follow-up:Follow up with your healthcare provider in [...] to plan of care. 2 General Instructions [facility] Emergency Department [address] [place] [address] Phone #: ext- [phone] 07/26/2019 19:46 Patient: ASHLEY GUPTA Sex: F [...] for yourself at home: 3 General Instructions [facility] Emergency Department [address] [place] [address] Phone #: ext- [phone] 07/26/2019 19:46 Patient: [...] take your child's temperature. 4 General Instructions [facility] Emergency Department [address] [place] [address] Phone #: ext- [phone] 19:46 [id number] Sex[facility] F : 1990 Age: 28y Here are guidelines for fever temperature. Ear temperatures aren't accurate before 6 months of age. Don't take an oral temperature until your child is at least 4 years old. under 3 months old: Ask your child's [...] in a child 2 years or older. 2613-0540 [employer]. [address] [place] [address]. All rights reserved. This information is not [...] rce(s) Supporting Document(s) ID Date Data Source [id number] 07/26/2019 07:54:00 PM EDT [facility] 1 Clinical Report - Nurses [facility] Emergency Department [address] [place] [address] Phone #: ext- [phone] 07/26/2019 19:46 [facility]: [id number] Sex: F : 1990 Age: 28yTRIAGEArrived by private vehicle. Historian: patient. ( pt states she went to [facility] ED today and was given meds,pt [...] 100%. Temp: 99.0 F. Pain level now 11/14.--19:52 07/26/19 Martine Ceballos R.N.Weight: 49.8 kg. Height/Length: [...] before today?". 2 Clinical Report - Nurses [facility] Emergency Department [address] [place] [address] Phone #: [phone]- [phone] 07/26/2019 19:46 Patient: ASHLEY GUPTA Sex: F : 1990 Age: 28y ABUSE [...] in lowest 3 Clinical Report - Nurses [facility] Emergency Department [address] [place] [address] Phone #: ext- [phone] 07/26/2019 19:46 Patient: [id number] Sex: F : 1990 Age: 28y position. Brakes of bed on. --21:19 07/26/19 Sven Tony R.N. 21:18 07/26/19. BP: 123/86. MAP: 98. HR: 69. RR: 16. O2 saturation: 100%. Pain level now: 09/13. Describes the quality as aching and sharp. [...] Patient verbalized understanding. Written instructions provided in Guatemalan. The patient was discharged by the nurse practitioner. She was discharged home. She left ambulatory and via private vehicle. Patient driving. Patient has no belongings. --21:33 07/26/19 Sven Tony R.N. 21:31 07/26/19. BP: 123/86. HR: 69. RR: 16. O2 saturation: 100%. Temp: 98.9 F. Pain level now 710. --21:33 07/26/19 Sven Tony R.N. Departure time: 21:33 07/26/2019. --21:34 07/26/19 Sven Tony R.N.Locked/Released at 07/26/2019 21:34 by Sven Tony R.N. Name Value Range Interpretation Code Description Data Isabella rce(s) Supporting Document(s) ID Date Data Source [id number] 07/26/2019 07:54:00 PM EDT [facility] 1 Clinical Report - Physicians/Mid Levels [facility] Emergency Department [address] [place] [address] Phone #: ext- [phone] 07/26/2019 19:46 Patient: ASHLEY GUPTA Sex: F : 1990 Age: 28y Time [...] facility in the emergency department (Seen at [facility] ED today and prescribed zyrtec and [...] and 2 Clinical Report - Physicians/Mid Levels [facility] Emergency Department [address] [place] [address] Phone #: ext- [phone] 07/26/2019 19:46 Patient: ASHLEY GUPTA Sex: F [...] 0.20) 3 Clinical Report - Physicians/Mid Levels [facility] Emergency Department [address] [place] [address] Phone #: ext- [phone] 07/26/2019 19:46 Patient: [...] Male GFR Interprentation 20-49 yrs >60 mL/min Qtueye75-06 yrs >56 mL/min Normal 60-69 yrs >49 mL/min Normal 70-79yrs>42 mL/min Normal 80 and above >35 mL/min Normal Female GFRInterpretation 20-39 yrs >60 mL/min Normal 40-49 yrs >58 mL/minNormal 50-59 yrs >51 mL/min Normal 60-69 yrs >45 mL/min Qgzekt81-86 yrs >39 mL/min Normal 80 and above >32 mL/min NormalMonospot: (JENNIFER: 07/26/2019 20:20) ( IngRcvd 07/26/2019 20:44) Final results Test Result Flag Units (Reference) MONO TEST NEGATIVE (NORMAL: NEGAT MONO REENTER NEGATIVE (NORMAL: NEGAT { KIT LOT # [id number] ){ KIT EXP [id number] ){ PROCEDURAL CONTROL VALID)CRP: (JENNIFER: 07/26/2019 20:20) ( MsgRcvd 07/26/2019 20:55) Final results Test Result Flag Units (Reference) CRP-HS 2.87 MG/L (1.00 - 3.00) CDC/S HS-CRP CUT-OFF: RELATIVE RISK: <1.0 mg/LLow 1.0 - 3.0 mg/L Average >3.0 mg/LHigh Optimally, the average of HS-CRP results repeated two weeks apart should be used forrisk assessment.Rapid Strep Screen: (JENNIFER: 07/26/2019 20:30) ( MsgRcvd 07/26/2019 20:55) Final results 4 Clinical Report - Physicians/Mid Levels [facility] Emergency Department [address] [place] [address] Phone #: ext- [phone] 07/26/2019 19:46 Patient: ASHLEY GUPTA Sex: F : 1990 Age: 28y Test Result Flag Units (Reference) RAPID STREP NEGATIVE (NORMAL: NEGAT RAPID STREP REENTER NEGATIVE (NORMAL: NEGAT { PROCEDURAL CONTROL VALID ){ KIT LOT # [id number] ){ KIT EXP DATE 10-03-20 )The Strep [...] tablet daily. 5 Clinical Report - Physicians/Mid [facility] Emergency Department [address] [place] [address] Phone #: ext- [phone] 07/26/2019 19:46 [id number] Sex[facility] F : 1990 Age: 28y Prescription Medications: clindamycin HCl 300 mg capsule Take 1 capsule every eight hours for 7 days -- for lymph node swelling. Dispense 21 capsule. Refills: 0. Substitution permitted. [employer] [address] [place] [address]. . ibuprofen 800 mg tablet Take 1 tablet every eight hours for 10 days -- Dispense 30 tablet. Refills: 0. Substitution permitted. [employer] [address] - [address] [facility] [place] [address]. . Follow-up: Follow up with your healthcare [...] rce(s) Supporting Document(s) ID Date Data Source [id number] 07/26/2019 08:54:00 PM EDT [facility] Name Value Range Interpretation Code Description Data Isabella rce(s) Supporting Document(s) RAPID STREP NEGATIVE NORMAL: NEGATIVE [facility] RAPID STREP REENTER NEGATIVE NORMAL: NEGATIVE [facility] { PROCEDURAL CONTROL VALID ){ KIT LOT # [id number] ){ KIT EXP DATE 10-03-20 )The Strep [...] basis for treatment. ID Date Data Source [id number] 07/26/2019 08:55:00 PM EDT [facility] Name Value Range Interpretation Code Description Data Isabella rce(s) Supporting Document(s) C reactive protein [Mass/volume] in Serum or Plasma by High sensitivity method 2.87 MG/L 1.00 - 3.00 [facility] CDC/S HS-CRP CUT-OFF: RELATIVE RISK: <1.0 mg/L Low 1.0 - 3.0 mg/L Average >3.0 mg/L High Optimally, the average of HS-CRP results repeated two weeks apart should be used for risk assessment. ID Date Data Source [id number] 07/26/2019 08:55:00 PM EDT [facility] Name Value Range Interpretation Code Description Data Isabella rce(s) Supporting Document(s) COMPREHENSIVE METABOLIC PANEL [facility] COMPREHENSIVE METABOLIC PANEL Sodium [Moles/volume] in Serum or Plasma 140 mEq/L 134 - 153 [facility] Potassium [Moles/volume] in Serum or Plasma 4.1 mEq/L 3.6 - 5.0 [facility] Chloride [Moles/volume] in Serum or Plasma 100 mEq/L 98 - 107 [facility] Carbon dioxide, total [Moles/volume] in Serum or Plasma 25 MEQ/L 22 - 30 [facility] Glucose [Mass/volume] in Serum or Plasma 86 MG/DL 65 - 110 [facility] BUN 6 MG/DL 7 - 21 L [facility] al Creatinine [Mass/volume] in Serum or Plasma 0.7 MG/DL 0.7 - 1.5 [facility] BUN/CREAT 9 8 - 27 [facility] Protein [Mass/volume] in Serum or Plasma 7.8 G/DL 6.3 - 8.2 [facility] Albumin [Mass/volume] in Serum or Plasma 5.1 G/DL 3.9 - 5.0 H [facility] Globulin [Mass/volume] in Serum by calculation 2.7 GM/DL 2.4 - 3.2 [facility] A/G RATIO 1.9 0.8 - 2.0 [facility] Calcium [Mass/volume] in Serum or Plasma 10.0 MG/DL 8.4 - 10.2 [facility] Bilirubin.total [Mass/volume] in Serum or Plasma 1.2 MG/DL 0.2 - 1.3 [facility] Alkaline phosphatase [Enzymatic activity/volume] in Serum or Plasma 73 U/L 38 - 126 [facility] Aspartate aminotransferase [Enzymatic activity/volume] in Serum or Plasma 18 U/L 5 - 40 [facility] Alanine aminotransferase [Enzymatic activity/volume] in Seru m or Plasma 18 U/L 7 - 56 [facility] Anion gap 3 in Serum or Plasma 15.0 mmol/L 8.0 - 16.0 [facility] AGE 28 yrs [facility] NON-AA GFR >60 mL/min [facility] AFR AMER GFR >60 mL/min [facility] Male GFR In terprentation 20-49 [...] >32 mL/min Normal ID Date Data Source [id number] 07/26/2019 08:44:00 PM EDT [facility] Name Value Range Interpretation Code Description Data Isabella rce(s) Supporting Document(s) MONO TEST NEGATIVE NORMAL: NEGATIVE [facility] MONO REENTER NEGATIVE NORMAL: NEGATIVE [facility] { KIT LOT # [id number] ){ KIT EXP DATE 02-03-21 ){ PROCEDURAL CONTROL VALID ) ID Date Data Source [id number] 07/26/2019 08:33:00 PM EDT [facility] Name Value Range Interpretation Code Description Data Isabella rce(s) Supporting Document(s) CBC W/AUTOMATED DIFF [facility] COMPLETE BLOOD COUNT Leukocytes [#/volume] in Blood by Automated count 12.7 10^3/uL 4.2 - 11.0 H [facility] Erythrocytes [#/volume] in Blood by Automated count 4.82 10^6/uL 4. 20 - 5.40 [facility] Hemoglobin [Mass/volume] in Blood 14.2 g/dL 12.0 - 16.0 [facility] Hematocrit [Volume Fraction] of Blood by Automated count 42.0 % 3 7.0 - 47.0 [facility] Erythrocyte mean corpuscular volume [Entitic volume] by Auto mated count 87.1 fL 81.0 - 101 [facility] Erythrocyte mean corpuscular hemoglobin [Entitic mass] by Automated count 29.5 pg 27.0 - 34.0 [facility] Erythrocyte mean corpuscular hemoglobin concentration [Mass/volume] by Automated count 33.8 g/dL 31.0 - 36.0 [facility] Erythrocyte distribution width [Ratio] by Automated count 11.4 % 11.5 - 14.5 L [facility] Platelets [#/volume] in Blood by Automated count 364 10^3/uL 150 - 45 0 [facility] Platelet mean volume [Entitic volume] in Blood by Automated count 9.9 fL 7.4 - 10.4 [facility] Neutrophils/100 leukocytes in Blood by Automated count 61.8 % 37. 0 - 80.0 [facility] Lymphocytes/100 leukocytes in Blood by Manual count 27.9 % 25.0 - 40.0 [facility] Monocytes/100 leukocytes in Blood by Automated count 7.4 % 3.0 - 8.0 [facility] Eosinophils/100 leukocytes in Blood by Automated count 2.1 % 0.0 - 7.0 [facility] Basophils/100 leukocytes in Blood by Automated count 0.6 % 0.0 - 2.5 [facility] %IG 0.2 % 0.0 - 0.0 H [facility] %NRBC 0.0 % 0.0 - 0.0 [facility] al Neutrophils [#/volume] in Blood by Automated count 7.82 10^3/uL 2.00 - 6.90 H [facility] Lymphocytes [#/volume] in Blood by Automated count 3.53 10^3/uL 0.60 - 3.40 H [facility] Monocytes [#/volume] in Blood by Automated count 0.94 10^3/uL 0.00 - 0.90 H [facility] Eosinophils [#/volume] in Blood by Automated count 0.27 10^3/uL 0.00 - 0.70 [facility] Basophils [#/volume] in Blood by Automated count 0.07 10^3/uL 0.00 - 0.20 [facility] #IG 0.03 10^3/uL 0.00 - 0.10 [facility] #NRBC 0.00 10^3/uL 0.00 - 0.00 [facility] ospital MANUAL DIFF NOT INDICATED [facility] RBC MORPH NOT INDICATED [facility] spital ID Date Data Source [id number] 05/23/2019 03:25:00 PM EDT [facility] Name Value Range Interpretation Code Description Data Isabella rce(s) Supporting Document(s) Vitamin D,Total (25OH) 30.0-100.0 Below low normal [facility] Reference Range: <10 ng/mL: Deficien t 10-30 ng/mL: Insufficient 30-100 ng/mL: Sufficient >100 ng/mL: Toxicity possible Procedure Vital Signs ID Date Data Source UNK Name Value Range Interpretation Code Description Data Source(s) Body mass index (BMI) [Ratio] 20.2 kg/m2 20.2 k g/m2 [facility] ([facility], [facility]) Body height 61 [in_i] 61 [in_i] [facility] ([facility], [facility]) 5'1" Body weight 107.00 [lb_av] 107.00 [lb_av] [facility] T ([facility], [facility]) Body temperature 98.7 [degF] 98.7 [degF] [facility] ([facility], [facility]) Oxygen saturation in Arterial blood by Pulse oximetry 99 % 99 % [facility] ([facility], [facility]) Respiratory rate 16 /min 16 /min [facility] ( [facility], [facility]) Heart rate 103 /min 103 /min [facility] ([facility], [facility]) Diastolic blood pressure 64 mm[Hg] 64 mm[Hg] [facility] ([facility], [facility]) Systolic blood pressure 110 mm[Hg] 110 mm[Hg] [facility], [facility]) Body weight 50.803 kg 50.803 kg [facility] ([facility]) Body mass index (BMI) [Ratio] 21.2 kg/m2 21.2 k g/m2 [facility] ([facility]) Body weight 112.00 [lb_av] 112.00 [lb_av] MEDEN T ([facility]) Body height 61 [in_i] 61 [in_i] [facility] ([facility]) 5'1" Body weight 50.803 kg 50.803 kg [facility] ([facility] ) Body mass index (BMI) [Ratio] 21.2 kg/m2 21.2 k g/m2 [facility] ([facility]) Body weight 112.00 [lb_av] 112.00 [lb_av] [facility] [place] ([facility]) Body height 61 [in_i] 61 [in_i] [facility] ([facility] [place], ) 5'"
[2020-04-23] MEDS: MORPHINE 4 MG/ML 1ML VIAL/SYRINGE (J2270) IV PRN ×3 (11:50→20:47)
--- NOTE | 2020-04-23 12:21 | CCN ---
CRITICAL CARE NOTE DATE: 04/23/2020 Critical care time was 47 minutes. This excludes all procedures. SUBJECTIVE: At bedside the patient is awakening and having appropriate movements. I placed the patient on pressure support ventilation. Chest tube showed no evidence of air leak. I will put these to water seal today. I discussed the motor vehicle emissions inspector's plan for the patient is to take her back to the OR for potential tracheostomy. He wanted her to have 24 hours of steroids. There is concern for vocal cord paralysis especially given the fact that the left recurrent laryngeal nerve was involved with the lymph node. It does seem that the reason for her bilateral pneumothoraces was secondary to vocal cord paralysis after extubation. There is a high chance she will require tracheostomy. OBJECTIVE: Vital signs: Temperature is 98.8, pulse is 89, respiratory rate is 17, blood pressure is 119/74 with a mean arterial saturation of 89%, oxygen saturation is 92% on 0.21. General: Sedated on mechanical ventilation but moving arms, legs appropriately. She does awaken according to the nurse, is able to indicate pain and discomfort, is able to follow commands when on sedation vacation. HEENT: Sclerae are clear, nonicteric. Pupils are equal and reactive to light. Mucous membranes are moist. Tongue is midline. Neck: Tracheal deviation. Thyroidectomy scar with naldo with dehiscence. Drains are in place with approximately 30 mL of serosanguineous fluid in each of the drains. Cardiac: Regular, S1, S2 without audible murmur, rub, or gallop. No elevated JVP. No peripheral edema. Pulmonary: Clear to auscultation without rales, rhonchi, or wheezes. No dullness to percussion. No accessory muscle use. Abdomen: Soft, nontender, nondistended. No hepatosplenomegaly. No masses or hernia. Extremities: No cyanosis, clubbing, or edema. Chest wall: Chest tubes are in place without surrounding erythema or exudate. No evidence of air leak on exam while on suction. White blood cell count is at 17.6, hemoglobin 12.0, hematocrit 37.1 with a platelet count of 277. Sodium is 140, potassium 4.6, chloride 109, bicarb 24, BUN 9, creatinine 0.93 with a glucose of 168. Calcium is at 7.8. Ionized calcium is at 4.1. PTH intact is at 17.5. Chest x-ray this morning shows bilateral chest tube placement, the left in the posterior gutter, the right is more difficult to tell. There is evidence of pneumomediastinum. Endotracheal tube is 4.2 cm above the michaela. There is no mass lesion or infiltrate within the lung posada. There is no evidence of continued pneumothorax. ASSESSMENT/PLAN: 1. Respiratory failure secondary to thyroidectomy, possible vocal cord paralysis. The patient to have vocal cords evaluated by ENT with consideration of tracheostomy. Remains on dexamethasone. 2. Bilateral pneumothorax. We will place on water seal. I suspect this was due to intrathoracic pressure with paralyzed vocal cords. We will likely be able to remove the chest tubes within a few days if the patient continues to do well without evidence of air leak. We will likely clamp the chest tubes tomorrow. We will place on water seal today. 3. GI prophylaxis on Protonix. 4. DVT prophylaxis not yet instituted due to recent surgery and potential tracheostomy today. TEDs and Kend[place] will be in place but no heparin therapy. Heparin therapy will be added when surgically appropriate. 5. Status post thyroidectomy. Management per ENT. No evidence of hypocalcemia on exam. MTDD
[2020-04-23] MEDS: ACETAMINOPHEN 325 MG/10.15 ML UDC GT PRN (13:06)
--- NOTE | 2020-04-23 13:23 | REP ---
INDICATION: pneumothorax/ peter water seal. COMPARISON: Comparison portable chest x-ray 6:41 a.m. on this date.. TECHNIQUE: Portable semi-erect chest x-ray. 1:14 p.m. film. FINDINGS: Bilateral pleural drainage catheters persist. There is a small righta apical pneumothorax visible on the current radiograph slightly increased from the earlier film. There is a tiny apical pneumothorax at the top of the field of view on the left as well although this is more difficult to be confident of. It is near the edge of the film. The pleural angles are sharp. The pneumomediastinum is less prominent than on yesterday's radiograph unchanged from the earlier film. Heart is not enlarged. No infiltrate is seen. NG tube enters the left upper quadrant. IMPRESSION: Bilateral pleural drainage catheters remain in place. Small biapical pneumothoraces visible on the current film. Some residual pneumomediastinum. No new infiltrate <Electronically signed by Sonny Welch > 04/23/20 1945
[2020-04-23] MEDS ORDERED: D5W/0.45% SODIUM CHLORIDE 1,000 ML IV ONE (13:30)
[2020-04-23] MEDS: PANTOPRAZOLE 40MG VIAL (C9113 PER 1) IV SCH (16:18)
[2020-04-24] VITALS (41 sets, daily range): BP systolic 101–142; BP diastolic 54–78
[2020-04-24] MEDS: BACITRACIN OINTMENT 30GM TUBE TOP SCH ×3 (00:56→15:47)
[2020-04-24] MEDS: MIDAZOLAM INJ 2MG/2ML VIAL (J2250 PER 1MG) IV PRN ×5 (00:56→21:04)
[2020-04-24] MEDS: MORPHINE 4 MG/ML 1ML VIAL/SYRINGE (J2270) IV PRN ×5 (00:57→15:36)
[2020-04-24] MEDS: dexameTHASONE 20MG/5ML VIAL (J1100 PER 1MG) IV SCH ×3 (01:30→15:47)
[2020-04-24] MEDS: propofoL 2,400 MG in IV 1 EA IV SCH ×2 (01:59→07:52)
[2020-04-24 05:17] LABS: HEMATOCRIT 34.5 % (36.0-47.0); MEAN CORPUSCULAR HEMOGLOBIN 28.8 pg (27.0-33.0); MEAN CORPUSCULAR HGB CONC 31.9 g/dl (32.0-36.5); MEAN CORPUSCULAR VOLUME 90.3 fl (80.0-96.0); PLATELET COUNT, AUTOMATED 262 10^3/uL (150-450); RED BLOOD COUNT 3.82 10^6/uL (4.00-5.40); WHITE BLOOD COUNT 15.4 10^3/uL (4.0-10.0)
[2020-04-24 05:33] LABS: ALBUMIN 2.9 GM/DL (3.2-5.2); ALT/SGPT 21 U/L (12-78); BILIRUBIN,TOTAL 0.3 MG/DL (0.2-1.0); BLOOD UREA NITROGEN 8 MG/DL (7-18); CALCIUM LEVEL 7.6 MG/DL (8.5-10.1); CARBON DIOXIDE LEVEL 29 MEQ/L (21-32); CHLORIDE LEVEL 108 MEQ/L (98-107); CREATININE FOR GFR 0.52 MG/DL (0.55-1.30); GLOMERULAR FILTRATION RATE > 60.0 (>60); GLUCOSE, FASTING 134 MG/DL (70-100); POTASSIUM SERUM 3.8 MEQ/L (3.5-5.1); SODIUM LEVEL 142 MEQ/L (136-145); TOTAL PROTEIN 5.6 GM/DL (6.4-8.2)
[2020-04-24 05:38] LABS: ABG BASE EXCESS 2.8 (-2.0-2.0); ABG HCO3 27.3 MEQ/L (22.0-26.0); ABG O2 SATURATION 98.4 % (95.0-99.0); ABG PARTIAL PRESSURE CO2 41.9 mmHg (35.0-45.0); ABG PARTIAL PRESSURE O2 117.3 mmHg (75.0-100.0); ABG STANDARD HCO3 26.9 MEQ/L (22.0-26.0); ABG TOTAL CO2 28.6 MEQ/L (22.0-29.0); ABG pH (ARTERIAL) 7.432 UNITS (7.350-7.450)
[2020-04-24] MEDS: IPRATROPIUM 0.5MG/ALBUTEROL 2.5MG INH SOL UD 3ML (DUONEB) NEB SCH ×4 (07:27→19:54)
--- NOTE | 2020-04-24 08:13 | REP ---
INDICATION: BILATERAL PNEUMOTHORAX COMPARISON: 04/23/2020 TECHNIQUE: Portable AP view of the chest FINDINGS: Surgical naldo along the thoracic inlet and bilateral chest tubes are in stable appearance and position. Lung posada are relatively well aerated and clear. No obvious consolidation, effusion, or pneumothorax. Decreased pneumomediastinum is suggested. IMPRESSION: 1. No acute consolidation, effusion, or pneumothorax. 2. Decreased pneumomediastinum. <Electronically signed by Cameron Donaldson > 04/24/20 0818
[2020-04-24] MEDS: NS 1,000 ML IV SCH ×2 (08:35→15:47)
[2020-04-24] MEDS: CHLORHEXIDINE GLUCONATE 0.12 % 15ML UDC (PERIDEX ORAL RINSE) MT SCH ×2 (08:36→20:13)
[2020-04-24] MEDS: PANTOPRAZOLE 40MG VIAL (C9113 PER 1) IV SCH ×2 (08:40→20:13)
[2020-04-24] MEDS ORDERED: ROCURONIUM BROMIDE 50 MG/5 ML VIAL As Ordered ONE (10:27)
[2020-04-24] MEDS ORDERED: MIDAZOLAM 5MG/ML 1ML VIAL (J2250 PER 1MG) As Ordered ONE (10:28)
--- NOTE | 2020-04-24 10:29 | CCN ---
CRITICAL CARE NOTE DATE: 04/24/2020 CRITICAL CARE TIME: 59 minutes; this excludes all procedures. SUBJECTIVE: There are discussions of taking the patient to the OR today. Yesterday upon placing the chest tubes water-seal, there was reaccumulation of pneumothorax more so on the right than on the left; however, both chest tubes were put back to suction yesterday. I will not put these on water-seal until after the procedure today, or if this does not occur, we will likely reapproach this tomorrow. The patient is awake on mechanical ventilation. Offers no complaints. She does have pauses when given morphine; therefore, I have adjusted her to a pressure control mode with a tidal volume in the low 400s, as she has a fairly low ideal body weight. She has had no fever or chills. Plan is to take for tracheostomy and then evaluate the cords by ENT. The supervisor tank cleaning is speaking with the patient mother for permission at this point in time. OBJECTIVE: VITAL SIGNS: Temperature is 98.9, pulse 101, respiratory rate 10, blood pressure 118/59 with a MAP of 78. Oxygen saturation is 97% on 0.21 FiO2. The patient is now on pressure control 20/5. FiO2 of 0.21. PEEP of 5. GENERAL APPEARANCE: Awake, alert, and oriented. Affect and mood are appropriate. She is able to move all extremities. HEENT: Sclerae clear, nonicteric. Pupils equal and reactive to light. Mucous membranes are moist without lesions. NECK: Supple. Thyroidectomy scar without dehiscence, clean incision, naldo intact. Drains with minimal amounts of serosanguineous fluid. CHEST: Bilateral chest tubes in place. No air leak on 20 cm of negative water pressure. PULMONARY: Clear to auscultation without rales, rhonchi, or wheezes. No dullness to percussion. CARDIAC: Regular S1, S2 without audible murmur, rub, or gallop. No elevated JVP. No peripheral edema. ABDOMEN: Soft, nontender, and nondistended with no hepatosplenomegaly. No masses or herniation. EXTREMITIES: No cyanosis, clubbing, or edema. SKIN: Pale without rash, jaundice, or bruising. LABORATORY DATA: Evaluation shows an elevated white count of 15.4, hemoglobin of 11.0 with a platelet count of 262,000. Sodium 142, potassium 3.8, chloride 108, bicarb of 29, BUN of 8, creatinine of 0.52, and glucose of 135. IMAGING DATA: Chest x-ray shows reexpansion of the lungs after placed on negative pressure suction. Endotracheal tube is in place. No infiltrate, mass, or lesion. IMPRESSION: 1. Respiratory failure secondary to vocal cord dysfunction, possible vocal cord paralysis. Otolaryngology to assess and evaluate today for possible tracheostomy. 2. Bilateral pneumothoraces. Will wait until after the time of surgery to assess readiness for chest tubes to come out. My suspicion is we will likely place chest tubes on water-seal tomorrow and see if there is any return of either pneumothorax. 3. N.p.o. for potential procedure. The patient is on intravenous (IV) fluids. If she does not have any procedures performed, we will consider gastric tube tube feeds. CRITICAL CARE TIME: As mentioned above; this excludes all procedures. MTDD
--- NOTE | 2020-04-24 11:35 | RO ---
OPERATIVE NOTE DATE OF OPERATION: 04/22/2020 PREOPERATIVE DIAGNOSIS: Left papillary thyroid carcinoma. POSTOPERATIVE DIAGNOSIS: Left papillary thyroid carcinoma. PROCEDURES PERFORMED: 1. Total thyroidectomy. 2. Left modified radical neck dissection. 3. Central compartment dissection including bilateral peritracheal lymph nodes. 4. Intraoperative nerve monitoring using Nerveana System. SURGEON: Ag Mcqueen MD FISH AND WILDLIFE SCIENTIFIC AID: ANESTHESIA: General without use of paralytic. CLINICAL PREAMBLE: This 29-year-old woman presented to the office with history of left thyroid mass. FNA of the thyroid mass indicated evidence of malignant cytology consistent with papillary thyroid carcinoma. Genetic testing of [place] also confirmed high suspicion for papillary thyroid carcinoma as well. Management options including total thyroidectomy with intraoperative nerve monitoring have been discussed in detail with the patient. Risks of surgery including but not limited to bleeding, infection, transient or permanent hypercalcemia, transient or permanent vocal cord paralysis, which may necessitate tracheostomy, have been discussed with the patient. She understands and consented to the procedure. INTRAOPERATIVE FINDINGS: High-riding right thyroid pole extended to be level of the lower body of the right mandible. Left thyroid mass. Multiple left cervical lymphadenopathy in left peritracheal position encasing the left recurrent laryngeal nerve. Preservation of the left sternocleidomastoid muscle, left internal jugular vein and left accessory nerve carried out. Level IIA, IIB, III, IV, V and levels of lymph nodes were dissected. DESCRIPTION OF PROCEDURE: The patient was identified in preholding and brought to the operating room in stable condition. In the supine position on the operating table, the patient received general anesthesia followed by orotracheal intubation with Nerveana compatible orotracheal endotracheal tube. The ground electrodes as well as the test electrodes were connected to the Nerveana System. Good electrical signals were obtained. Impedance of 2.0 was achieved. At this time no further paralytic agent was used throughout the rest of the case. The patient was prepped and draped in the usual fashion for the procedure. A curvilinear incision was outlined in the lower neck region approximately a fingerbreadth above the sternal notch. Skin incision site was then infiltrated with 1% Lidocaine with 1:100,000 Epinephrine. Skin incision was made through the subcutaneous tissue and platysma. The strap muscles were identified; midline raphe was identified and dissected to afford retraction of the strap muscles laterally to expose the thyroid gland. Dissection was carried out on the right thyroid lobe first. Dissection was carried around the thyroid lobe. The superior vascular pedicle was noted to be extending about the thyroid nodule. This was carefully dissected and ligated using the Harmonic scalpel. The superior pole was then dissected down; the right superior parathyroid gland was identified and preserved along with its vascular supply. The right recurrent laryngeal nerve was identified at the level of the cricothyroid muscle as it enters into the cricothyroid joint area. In addition, dissection was carried out to ensure the full length of the right recurrent laryngeal nerve so as to clearly visualize and dissect it away from the right thyroid lobe. The inferior vascular pedicle was identified and ligated. The right inferior parathyroid gland was identified and preserved along with its vascular pedicle as well. The thyroid isthmus was dissected off the Wu's ligament. The right thyroid lobe along with the isthmus was then resected en bloc. At this time our attention was turned to the left thyroid lobe. The dissection was carried out to localize the superior vascular pedicle of the left thyroid lobe. It was then ligated using the Harmonic scalpel. Additional dissection was carried out inferiorly to isolate the inferior vascular pedicle of the left thyroid lobe as well. Additional dissection was carried out to free the thyroid lobe from the surrounding strap muscle. The left recurrent laryngeal nerve was identified and dissected in its entirety up to its insertion into the cricothyroid joint area. The right thyroid lobe was then successfully excised en bloc. Upon inspection of the central compartment several lymph nodes in the right peritracheal region greater than 1 cm were noted and dissected out. Additional large left peritracheal lymph nodes and left pretracheal lymph nodes were also identified and resected and sent for frozen section. The report indicated evidence of papillary thyroid tumor cells in the left cervical lymph nodes. At this juncture decision was made to perform the left modified radical neck dissection. The neck incision was extended from the left edge up to the left mastoid tip. Subplatysmal flap was elevated. The anterior border of the left sternocleidomastoid muscle was dissected for visualization of the additional lymph nodes in the left peritracheal region. Bulky cervical lymphadenopathy was noted to be encasing the left recurrent laryngeal nerve. Careful dissection was carried out to dissect the left peritracheal lymph nodes off the left recurrent laryngeal nerve. At this time the sternocleidomastoid muscle was skeletonized with identification of the accessory nerve. The entire left accessory nerve was traced in the posterior triangle to the point of insertion into the trapezius muscles. The internal jugular vein and the carotid arteries were also identified and carefully dissected out. The cervical lymph node chain of levels II, III and IV were identified and dissected out of the way of the left neck compartment. Careful dissection was carried out in the left supraclavicular fossa to elevate the fibrofatty tissue from posterior triangle away from the border of the trapezius muscle. Level IIB lymph nodes were dissected off from the internal jugular vein to afford mobilization of the fibrofatty tissue away from the sternocleidomastoid muscle and accessory nerve to complete dissection of the left posterior triangle lymph node. All the lymph node specimens were sent, labeled with a number of naldo which indicate the level of the lymph node. At this time the left neck and thyroidectomy bed were irrigated using warm saline solution. The left and right recurrent laryngeal nerves were found to be intact in their entirety length of dissection field. The Surgicel was placed over the recurrent laryngeal nerves. Complete hemostasis was achieved using bipolar electrocautery. The left sternothyroid and sternohyoid muscles were reapproximated. Two #10 flat CHRISTINA drains were inserted to provide coverage of the thyroid bed and left neck dissection. The skin incision was reapproximated using 3-0 Vicryl for deep suture and naldo for final skin closure. The CHRISTINA drains were then secured using 2-0 silk. Bacitracin was applied to the neck incision and the CHRISTINA insertion site. At the end of the procedure sponge and instrument counts were correct. Blood loss was approximately 50 mL at the conclusion of the procedure.
[2020-04-24] MEDS ORDERED: PHENYLEPHRINE 0.5% NASAL SPRAY 15 ML As Ordered ONE (11:41)
[2020-04-24] MEDS ORDERED: LIDOCAINE W/EPINEPHRINE 1% 20ML VIAL As Ordered ONE (11:41)
[2020-04-24] MEDS ORDERED: BACITRACIN OINTMENT 30GM TUBE As Ordered ONE (12:31)
[2020-04-24] MEDS: propofoL 1,000 MG in IV 1 EA IV SCH ×3 (13:00→22:51)
[2020-04-24] MEDS: ACETAMINOPHEN 325 MG/10.15 ML UDC GT PRN (18:08)
[2020-04-25] VITALS (24 sets, daily range): BP systolic 101–146; BP diastolic 57–88
[2020-04-25] MEDS: BACITRACIN OINTMENT 30GM TUBE TOP SCH ×4 (00:17→23:42)
[2020-04-25] MEDS: dexameTHASONE 20MG/5ML VIAL (J1100 PER 1MG) IV SCH ×2 (00:37→08:09)
[2020-04-25] MEDS: NS 1,000 ML IV SCH (02:06)
[2020-04-25] MEDS: MORPHINE 4 MG/ML 1ML VIAL/SYRINGE (J2270) IV PRN ×2 (04:12→08:42)
[2020-04-25] MEDS: propofoL 1,000 MG in IV 1 EA IV SCH ×2 (04:12→08:08)
[2020-04-25 05:40] LABS: HEMATOCRIT 33.4 % (36.0-47.0); HEMOGLOBIN 10.6 g/dl (12.0-15.5); MEAN CORPUSCULAR HEMOGLOBIN 29.1 pg (27.0-33.0); MEAN CORPUSCULAR HGB CONC 31.7 g/dl (32.0-36.5); MEAN CORPUSCULAR VOLUME 91.8 fl (80.0-96.0); PLATELET COUNT, AUTOMATED 238 10^3/uL (150-450); RED BLOOD COUNT 3.64 10^6/uL (4.00-5.40); WHITE BLOOD COUNT 12.6 10^3/uL (4.0-10.0)
[2020-04-25 05:41] LABS: ABG BASE EXCESS 1.7 (-2.0-2.0); ABG HCO3 25.2 MEQ/L (22.0-26.0); ABG O2 SATURATION 98.3 % (95.0-99.0); ABG PARTIAL PRESSURE CO2 35.5 mmHg (35.0-45.0); ABG PARTIAL PRESSURE O2 102.3 mmHg (75.0-100.0); ABG TOTAL CO2 26.3 MEQ/L (22.0-29.0); ABG pH (ARTERIAL) 7.469 UNITS (7.350-7.450)
[2020-04-25 05:53] LABS: ALBUMIN 2.9 GM/DL (3.2-5.2); ALT/SGPT 35 U/L (12-78); BILIRUBIN,TOTAL 0.3 MG/DL (0.2-1.0); BLOOD UREA NITROGEN 12 MG/DL (7-18); CALCIUM LEVEL 7.7 MG/DL (8.5-10.1); CARBON DIOXIDE LEVEL 27 MEQ/L (21-32); CHLORIDE LEVEL 110 MEQ/L (98-107); CREATININE FOR GFR 0.47 MG/DL (0.55-1.30); GLOMERULAR FILTRATION RATE > 60.0 (>60); GLUCOSE, FASTING 118 MG/DL (70-100); POTASSIUM SERUM 3.7 MEQ/L (3.5-5.1); SODIUM LEVEL 144 MEQ/L (136-145); TOTAL PROTEIN 6.2 GM/DL (6.4-8.2)
[2020-04-25] MEDS: IPRATROPIUM 0.5MG/ALBUTEROL 2.5MG INH SOL UD 3ML (DUONEB) NEB SCH ×4 (07:25→20:22)
--- NOTE | 2020-04-25 08:07 | REP ---
INDICATION: BILATERAL PNEUMOTHORAX COMPARISON: 04/24/2020 TECHNIQUE: Portable AP view of the chest FINDINGS: Tracheostomy overlies the airway. Nasogastric tube is in satisfactory position. Bilateral chest tubes in stable position. Cardiac silhouette is normal. Lung posada are relatively well aerated and without consolidation, effusion, or obvious residual pneumothorax. IMPRESSION: Status post tracheostomy. Stable examination. No focal consolidation, effusion, or obvious residual pneumothorax. <Electronically signed by Cameron Donaldson > 04/25/20 [id number]
[2020-04-25] MEDS: PANTOPRAZOLE 40MG VIAL (C9113 PER 1) IV SCH ×2 (08:09→22:05)
[2020-04-25] MEDS: CHLORHEXIDINE GLUCONATE 0.12 % 15ML UDC (PERIDEX ORAL RINSE) MT SCH ×2 (08:09→22:04)
[2020-04-25] MEDS: LevoFLOXacin IV 750 MG in IV 1 EA IV SCH (10:42)
--- NOTE | 2020-04-25 13:13 | REP ---
INDICATION: Chest tube. COMPARISON: Comparison chest x-ray 25 April 2020. 7:11 a.m. film. TECHNIQUE: Portable upright AP chest radiograph. 12:54 p.m. film. FINDINGS: Bilateral pleural drainage catheters remain in place. There is a tiny sliver of apical pleural air on the right. The lungs are well inflated and otherwise clear. Oxygen delivery tubing is noted. Tracheostomy tube remains in place unchanged. Anterior skin naldo and surgical drains are noted at the base of the neck. Nasogastric tube enters the left upper quadrant. No infiltrate is seen.. IMPRESSION: Bilateral pleural drainage catheters remain in place. Tiny right apical pleural air collection persists. Tracheostomy and nasogastric tubes in good position. Decreased pneumomediastinum. No new infiltrate.. <Electronically signed by Sonny Welch > 04/25/20 [id number]
--- NOTE | 2020-04-25 14:43 | CCN ---
CRITICAL CARE NOTE DATE: 04/25/2020 SUBJECTIVE: Patient was seen and examined this morning during bedside rounds. Patient had a tracheostomy placed yesterday by ENT. This morning, she is on the ventilator on pressure control mode via the tracheostomy tube and on Propofol for sedation. Overnight, she did not have any acute events. This morning with sedation vacation, she is awake and arousable and following commands appropriately. Patient denies any significant complaints of pain currently. She did have a low-grade temperature yesterday with a T-max of 100.2. She has had some increased output of thick yellow sputum from her tracheostomy with suctioning. OBJECTIVE: VITALS: T-max 100.2, T-current 99.1, pulse 100, respirations 15, blood pressure 117/69, O2 sat 98% on FIO2 at 21%. GENERAL: Patient is sedated, but easily awake and arousable with sedation vacation. She is able to move all extremities and denies any significant complaints. HEENT: Normocephalic, atraumatic. Pupils are reactive to light bilaterally. Neck is supple. There is a thyroidectomy incision as well as a tracheostomy tube in her neck with minimal amounts of serosanguineous fluid. CARDIAC: Regular rate and rhythm. Normal S1, S2. No significant murmurs appreciated. She has bilateral chest tubes in place to suction with no air leak noted on 20 cm of negative water pressure. PULMONARY: Coarse rhonchi noted bilaterally. Patient has some coughing as well at times. No rales or wheezes. ABDOMEN: Soft, nontender, non-distended. There is no hepatomegaly. She has an NG tube in place, draining some dark maroon output. EXTREMITIES: There is no significant lower extremity edema bilaterally. LABORATORY DATA: WBC 12.6, hemoglobin 10.6, platelets 238,000. Sodium 144, potassium 3.7, chloride 110, bicarb 27, BUN 12, creatinine 0.47, glucose 118, calcium 7.7. ALT 35 and AST 35. Alkaline phosphatase 42. Total protein 6.2. Albumin 2.9. ABG: pH 7.469, pCO2 35.5, pO2 102.3. IMAGING: Chest x-ray this morning shows tracheostomy tube in place as well as naldo from her thyroidectomy. There is bilateral chest tube noted with no obvious pneumothorax. There is no significant focal opacity noted. ASSESSMENT AND PLAN: Ms. Bracewell is a 29-year-old female, who has a history of papillary thyroid carcinoma and presented for a thyroidectomy procedure. Post procedure, patient had acute respiratory failure likely secondary to vocal cord paralysis with the complication of bilateral pneumothoraces requiring chest tube placement. With the chest tube, she has had adequate evacuation of air. When she was on the ventilator yesterday and placed to water seal, she did have reaccumulation of the pneumothorax with the right more than the left. She has since had her tracheostomy yesterday afternoon and is on the ventilator currently via the tracheostomy. 1. Acute respiratory failure requiring mechanical ventilation and now tracheostomy with suspected vocal cord paralysis 2. Bilateral pneumothoraces s/p chest tube placement 3. Hx papillary thyroid carcinoma s/p thyroidectomy - Will discontinue Propofol and continue with Versed p.r.n. for agitation/anxiety and morphine p.r.n. for pain control. - Patient was placed on a pressure support weaning trial today, which she tolerated well with her sedation hold. Will switch her to trach collar today and continue to maintain her sats above 90%. If she is tolerating trach collar well, then we will attempt to keep her off the ventilator except as needed for respiratory distress or hypoxia. - Will discontinue her Decadron as she has had almost 72 hours and is also status post tracheostomy now. - Patient has her right and left-sided chest tubes to wall suction currently with no significant air leak. Her chest x-ray this morning does not show any significant pneumothorax. Will place her left-sided chest tube to water seal and repeat a chest x-ray in three hours to reassess. - Will discontinue her I.V. fluids as she is on normal saline and having increasing hyperchloremia. - Patient's NG tube is still to wall suction. There appears to be some dark maroon output. She is on Protonix b.i.d. and will decrease the suction rate. If she does well with trach collar today, we will likely transition her to capping or a Passy Justino valve and with speak/swallow evaluation. - Patient did have some increased rhonchi as well as secretions suctioned from her tracheostomy tube today. She did have a low-grade fever overnight as well. Will start her on antibiotics with Levaquin for the possibility of tracheobronchitis. - Will continue with head of bed elevation and vent bundle care with Chlorhexidine mouthwash. - Will continue with daily ABGs and chest x-ray for another day or two, and then likely can discontinue. DVT prophylaxis: Will start Heparin. GI prophylaxis: Protonix. Code status: Full code. TOTAL CRITICAL CARE TIME SPENT: Not including any procedures approximately 50 minutes. MTDD
[2020-04-25] MEDS ORDERED: dexameTHASONE 4 MG/ML 1ML VIAL (J1100 PER 1MG) IV SCH (17:00)
[2020-04-25] MEDS: HEPARIN SOD (PORCINE) 5000UNITS/ML 1ML VIAL/SYRINGE SQ SCH (22:04)
[2020-04-26] VITALS (19 sets, daily range): BP systolic 109–148; BP diastolic 68–85
[2020-04-26 05:00] LABS: HEMATOCRIT 34.9 % (36.0-47.0); HEMOGLOBIN 11.1 g/dl (12.0-15.5); MEAN CORPUSCULAR HEMOGLOBIN 28.5 pg (27.0-33.0); MEAN CORPUSCULAR HGB CONC 31.8 g/dl (32.0-36.5); MEAN CORPUSCULAR VOLUME 89.5 fl (80.0-96.0); PLATELET COUNT, AUTOMATED 274 10^3/uL (150-450); WHITE BLOOD COUNT 12.8 10^3/uL (4.0-10.0)
[2020-04-26 05:26] LABS: ALBUMIN 2.9 GM/DL (3.2-5.2); ALT/SGPT 58 U/L (12-78); BILIRUBIN,TOTAL 1.2 MG/DL (0.2-1.0); BLOOD UREA NITROGEN 16 MG/DL (7-18); CALCIUM LEVEL 7.9 MG/DL (8.5-10.1); CARBON DIOXIDE LEVEL 25 MEQ/L (21-32); CHLORIDE LEVEL 108 MEQ/L (98-107); CREATININE FOR GFR 0.48 MG/DL (0.55-1.30); GLOMERULAR FILTRATION RATE > 60.0 (>60); GLUCOSE, FASTING 83 MG/DL (70-100); SODIUM LEVEL 143 MEQ/L (136-145); TOTAL PROTEIN 5.9 GM/DL (6.4-8.2)
[2020-04-26 05:55] LABS: ABG BASE EXCESS 3.7 (-2.0-2.0); ABG HCO3 25.5 MEQ/L (22.0-26.0); ABG O2 SATURATION 99.1 % (95.0-99.0); ABG PARTIAL PRESSURE CO2 29.8 mmHg (35.0-45.0); ABG PARTIAL PRESSURE O2 166.6 mmHg (75.0-100.0); ABG STANDARD HCO3 27.8 MEQ/L (22.0-26.0); ABG TOTAL CO2 26.4 MEQ/L (22.0-29.0)
[2020-04-26] MEDS: MORPHINE 4 MG/ML 1ML VIAL/SYRINGE (J2270) IV PRN (06:21)
[2020-04-26 06:49] LABS: MAGNESIUM LEVEL 1.7 MG/DL (1.8-2.4)
[2020-04-26] MEDS: IPRATROPIUM 0.5MG/ALBUTEROL 2.5MG INH SOL UD 3ML (DUONEB) NEB SCH ×4 (07:24→19:24)
[2020-04-26] MEDS ORDERED: MAG SULF 1GM/100ML (MAG RUN) 1 GM in IV 1 EA IV ONE (09:00)
[2020-04-26] MEDS ORDERED: POTASSIUM CHLORIDE 10% LIQ 20 MEQ/15 ML UDC PO ONE ×2 (09:00→14:00)
--- NOTE | 2020-04-26 09:02 | REP ---
INDICATION: BILATERAL PNEUMOTHORAX. COMPARISON: 04/25/2020, 04/24/2020. TECHNIQUE: AP portable seated chest. FINDINGS: A tracheostomy tube and nasogastric tubes are unchanged. Smaller caliber right and left chest tubes are again seen and grossly unchanged. Small right apical pneumothorax is not well seen today. There is no left apical pneumothorax. I see no pleural effusion or dense consolidation. Only trace mediastinal air now seen. The heart mediastinal contours are unremarkable. Anterior skin naldo along the neck base from tracheostomy noted. No free air under the diaphragm. Bones intact. IMPRESSION: Tracheostomy tube, nasogastric tube in bilateral small caliber chest tubes are again seen. I do not see a right apical pneumothorax today. Only trace mediastinal air remains. No infiltrate or effusion <Electronically signed by Jhony Kingston > 04/26/20 0843
[2020-04-26] MEDS: BACITRACIN OINTMENT 30GM TUBE TOP SCH ×2 (09:15→16:11)
[2020-04-26] MEDS: CHLORHEXIDINE GLUCONATE 0.12 % 15ML UDC (PERIDEX ORAL RINSE) MT SCH ×2 (09:15→21:55)
[2020-04-26] MEDS: PANTOPRAZOLE 40MG VIAL (C9113 PER 1) IV SCH ×2 (09:15→21:55)
[2020-04-26] MEDS: HEPARIN SOD (PORCINE) 5000UNITS/ML 1ML VIAL/SYRINGE SQ SCH ×2 (09:15→21:55)
--- NOTE | 2020-04-26 09:32 | RO ---
OPERATIVE NOTE DATE OF OPERATION: 04/24/2020 PREOPERATIVE DIAGNOSIS: Thyroid carcinoma with lymph node metastases and bilateral vocal cord paralysis. POSTOPERATIVE DIAGNOSIS: Thyroid carcinoma with lymph node metastases and bilateral vocal cord paralysis. PROCEDURE PERFORMED: Tracheostomy SURGEON: Ag Mcqueen MD [employer] SCIENCE RESEARCH TECHNICIAN: ANESTHESIA: General. CLINICAL PREAMABLE: This is a 29-year-old woman who underwent total thyroidectomy and left modified radical neck dissection on April 22, 2020. Postoperatively she was noted to have bilateral vocal cord paralysis. In addition, she developed bilateral pneumothorax. Chest tubes were successfully inserted and pneumothorax was successfully managed and in stable condition. I have spoken to the patient's mother Iwona at great length in regards to postoperative issues including management of the bilateral vocal cord paralysis that would require tracheostomy. She agreed and consented to the procedure. DESCRIPTION OF PROCEDURE: The patient was brought to the operating room from the intensive care unit. In the supine position on the operating table, the patient received anesthesia via existing orotracheal tube. The patient was prepped and draped in the usual fashion for the procedure. Approximately 5 cm of the preexisting horizontal surgical incision in the lower neck position was marked. The surgical naldo were removed. The underlying deep Vicryl sutures were cut. The subplatysmal flaps were then gently retracted superiorly and inferiorly to expose the strap muscles. The CHRISTINA drains were gently retracted inferiorly to allow exposure of the interior surface of the trachea. A horizontal incision was made between the 2nd and 3rd tracheal rings. Vertical __ were then fashioned to allow development of the Peter flap of the anterior tracheal wall. The endotracheal tube was retracted superiorly to the superior margin of the newly fashioned tracheal stoma. At this time the Shiley tracheostomy tube #6 fenestrated cuffed was then successfully inserted into the tracheal stoma under direct visualization. Ventilatory circuit was connected to the tracheostomy set. Good CO2 return was observed. At this time the flange of the tracheostomy was secured to the anterior neck skin. Velcro ties were applied to secure the tracheostomy tube. Drainage sponge was then placed under the tracheal stoma. At the end of the procedure sponge and instrument counts were correct. No complications were noted. Estimated blood loss nil. General anesthesia was reversed and the patient was taken back to the ICU in stable condition.
[2020-04-26] MEDS: KCL 10MEQ/100ML SWI (KRUN) 10 MEQ in IV 1 EA IV SCH ×3 (10:44→13:21)
--- NOTE | 2020-04-26 11:14 | CCN ---
CRITICAL CARE NOTE DATE: 04/26/2020 SUBJECTIVE: The patient was seen this morning during bedside rounds. The patient remained on a trach collar throughout the late morning, afternoon and evening and had been doing well on a trach collar, off of the ventilator all through the night. Her left chest tube was placed to water seal and had remained on water seal throughout the night with no appreciable air leak this morning. Her right sided chest tube is still on wall suction with no notable air leak. This morning she is sitting in the chair and is awake and alert and answering questions by mouthing words. She denies any significant complaints currently. She did have a low grade fever overnight with a T-max of 100.3. She was noted to have thick sputum from her tracheostomy with suctioning yesterday which has improved. She does have an occasional cough today which has also improved. OBJECTIVE: PHYSICAL EXAMINATION: VITAL SIGNS: T-max is 100.3, T-current 98.9, pulse 74, respirations 18, blood pressure 123/72, O2 sat 98% on 28% FiO2 trach collar. INTAKE AND OUTPUT: In 1.2 liters, out 2.5 liters. GENERAL APPEARANCE: The patient is awake and alert, moving all extremities. She is sitting in a chair and appears comfortable. She is not using any accessory muscles for respiration. HEENT: Normocephalic and atraumatic. Pupils are reactive to light bilaterally. The patient has an NG tube in place which is draining some occasionally dark maroon output. NECK: Supple. The patient has a thyroidectomy incision with a CHRISTINA drain draining serosanguinous fluid. She has a tracheostomy tube in place with dressing with minimal amounts of bleeding. CARDIAC: Regular rate and rhythm, normal S1, S2. No significant murmur is appreciated. CHEST: Bilateral chest tubes in place with the right chest tube to wall suction and left chest tube to water seal, both with no appreciable air leak. PULMONARY: Improved breath sounds today. She does have some mild crackles and rhonchi on the right base. No wheezes noted. ABDOMEN: Soft, nontender, nondistended. There is no hepatomegaly. EXTREMITIES: There is no significant lower extremity bilaterally. LABORATORY STUDIES: WBC 12.8, hemoglobin is 11.1, platelet count 274. Chemistries: Sodium is 143, potassium is 2.0, chloride is 108, bicarbonate is 25, BUN 16, creatinine 0.48, glucose is 83, calcium is 7.9, magnesium is 1.7, T-bili 1.2, AST ALT 42 and 58, albumin is 2.9. ABG: PH of 7.550, pco2 of 29.8, pO2 of 166.6. IMAGING: Chest x-ray this morning shows tracheostomy tube in place. There are bilateral chest tubes noted again, which are unchanged. There is no appreciable pneumothorax in the left apex or in the right apex. The NG tube is placed coursing below the left diaphragm although appears somewhat deep. ASSESSMENT AND PLAN: Ms. Gupta is a 29-year-old female with a history of papillary thyroid carcinoma who presented for a thyroidectomy procedure. Post procedure the patient had acute respiratory failure, likely secondary to vocal cord paralysis with complication of bilateral pneumothoraces requiring chest tube placement for evacuation. The patient is now status post tracheostomy and she has been doing well on a trach collar, and has been off of the ventilator since yesterday in the morning. 1. Acute respiratory failure requiring mechanical ventilation and now status post tracheostomy placement with suspected vocal paralysis. 2. Bilateral pneumothoraces status post chest tube placement. 3. History of papillary thyroid carcinoma status post thyroidectomy. 4. Hypokalemia. 5. Tracheobronchitis - The patient has been doing well on a trach collar and had remained off of the ventilator since yesterday morning would continue on trach collar and will attempt passing a Pass[place] valve to see if the patient has had improvement in some of her vocal cord dysfunction. - The patient has an NG tube in place we will start trickle feeds and if she is able to tolerate Passy-Justino valve, we will continue with a speech and swallow evaluation at that time. We will continue to monitor residuals via her NG tube. - Continue Protonix twice daily. - Would discontinue Versed and continue with Morphine p.r.n. for pain control. - The patient's chest x-ray today does not show significant pneumothorax on the left side - Her left side chest tube had remained to water seal since yesterday morning, and there is no air leak noted. We will remove her left sided chest tube and will place her right sided chest tube to water seal and repeat an x-ray in a few hours to monitor. - We will continue with Levaquin she did have a low grade fever and does have some occasional rhonchi and crackles now, more on the right base. Her chest x-ray this morning did not show any focal opacities, but suspect she does have a component of at least a tracheobronchitis. - We will continue with head of bed elevation and with Chlorhexidine mouthwash. - We will discontinue daily ABG's and continue with daily chest x-rays while she has her chest tubes in place. - We will replete her magnesium and then replete potassium IV and p.o. - We will continue the patient to be out of bed to chair as tolerated. DVT prophylaxis Heparin subcutaneously. GI prophylaxis PPI. Code status full code. Total critical care time spent not including any procedures approximately 45 minutes. MTDD
--- NOTE | 2020-04-26 13:24 | REP ---
INDICATION: chest tube. COMPARISON: AP portable chest earlier this date. TECHNIQUE: Upright portable AP chest FINDINGS: Tracheostomy tube and endotracheal tubes are unchanged. There is a small caliber right chest tube laterally in the upper lung zone unchanged. The left small caliber chest tube is been removed. I see no evidence of recurrence of pneumothorax. The lung posada are clear. The heart and mediastinal contours were normal. IMPRESSION: Interval removal of the left small caliber chest tube with no recurrence of pneumothorax. Other lines and tubes unchanged. No acute finding. <Electronically signed by Jhony Kingston > 04/26/20 [id number]
[2020-04-26] MEDS: LevoFLOXacin IV 750 MG in IV 1 EA IV SCH (13:26)
[2020-04-26] MEDS: KETOROLAC 30 MG/ML 1ML VIAL IV PRN (14:33)
--- NOTE | 2020-04-26 14:42 | REP ---
INDICATION: shortness of breath. COMPARISON: Two studies earlier today, 04/25/2020, 04/24/2020. TECHNIQUE: AP portable seated chest FINDINGS: Tracheostomy tube, nasogastric tube, skin naldo in oxygen tubing over the neck and right sided small caliber chest tube the upper lung zone unchanged. There is very subtle air gap at both lung apices only a couple of mm in size not visible on the previous exam at 12:23 PM. There is no pleural effusion or acute infiltrate heart mediastinal and hilar contours are normal. No midline shift. The aorta and airway intact. The bones are unremarkable. No free air under the diaphragm. IMPRESSION: 1. There is a bilateral trace apical air gap just a few mm diameter which is not visible on the previous study about 2 hours ago. Small caliber right chest tube remains well the left was removed earlier today. 2. No infiltrate, effusion, midline shift or abnormality the cardio mediastinal silhouette. 3. Tracheostomy tube, nasogastric tube, smaller caliber right chest tube extending toward the right apex and transverse staple line in the neck base from the tracheostomy are all unchanged.. <Electronically signed by Jhony Kingston > 04/26/20 0212
[2020-04-26 17:49] LABS: BLOOD UREA NITROGEN 16 MG/DL (7-18); CALCIUM LEVEL 8.2 MG/DL (8.5-10.1); CARBON DIOXIDE LEVEL 25 MEQ/L (21-32); CHLORIDE LEVEL 107 MEQ/L (98-107); CREATININE FOR GFR 0.47 MG/DL (0.55-1.30); GLOMERULAR FILTRATION RATE > 60.0 (>60); GLUCOSE, FASTING 83 MG/DL (70-100); POTASSIUM SERUM 4.3 MEQ/L (3.5-5.1); SODIUM LEVEL 140 MEQ/L (136-145)
[2020-04-26] MEDS: ACETAMINOPHEN 325 MG/10.15 ML UDC GT PRN (20:28)
[2020-04-27] VITALS (17 sets, daily range): BP systolic 115–152; BP diastolic 72–99
[2020-04-27] MEDS: KETOROLAC 30 MG/ML 1ML VIAL IV PRN ×2 (00:28→22:18)
[2020-04-27] MEDS: BACITRACIN OINTMENT 30GM TUBE TOP SCH ×4 (00:30→23:53)
[2020-04-27 05:42] LABS: HEMATOCRIT 38.6 % (36.0-47.0); HEMOGLOBIN 12.4 g/dl (12.0-15.5); MEAN CORPUSCULAR HEMOGLOBIN 28.6 pg (27.0-33.0); MEAN CORPUSCULAR HGB CONC 32.1 g/dl (32.0-36.5); MEAN CORPUSCULAR VOLUME 88.9 fl (80.0-96.0); PLATELET COUNT, AUTOMATED 281 10^3/uL (150-450); RED BLOOD COUNT 4.34 10^6/uL (4.00-5.40); WHITE BLOOD COUNT 11.7 10^3/uL (4.0-10.0)
[2020-04-27 06:20] LABS: ALBUMIN 2.9 GM/DL (3.2-5.2); ALT/SGPT 75 U/L (12-78); BILIRUBIN,TOTAL 0.7 MG/DL (0.2-1.0); BLOOD UREA NITROGEN 18 MG/DL (7-18); CALCIUM LEVEL 8.1 MG/DL (8.5-10.1); CARBON DIOXIDE LEVEL 25 MEQ/L (21-32); CHLORIDE LEVEL 104 MEQ/L (98-107); CREATININE FOR GFR 0.41 MG/DL (0.55-1.30); FREE T3 0.9 PG/ML (2.2-4.0); FREE T4 0.73 NG/DL (0.76-1.46); GLOMERULAR FILTRATION RATE > 60.0 (>60); GLUCOSE, FASTING 96 MG/DL (70-100); POTASSIUM SERUM 4.2 MEQ/L (3.5-5.1); SODIUM LEVEL 139 MEQ/L (136-145); TOTAL PROTEIN 6.4 GM/DL (6.4-8.2)
[2020-04-27] MEDS: IPRATROPIUM 0.5MG/ALBUTEROL 2.5MG INH SOL UD 3ML (DUONEB) NEB SCH ×4 (07:11→19:43)
[2020-04-27] MEDS: MORPHINE 4 MG/ML 1ML VIAL/SYRINGE (J2270) IV PRN ×2 (07:51→12:43)
--- NOTE | 2020-04-27 08:18 | REP ---
INDICATION: BILATERAL PNEUMOTHORAX. COMPARISON: 04/26/2020, 04/25/2020 TECHNIQUE: AP portable seated chest FINDINGS: Tracheostomy tube, small caliber right chest tube and nasogastric tubes are all unchanged. Findings suggest a trace apical air gap of just a few mm on the right. No pneumothorax on the left. Lung posada are well inflated. No dense consolidation or gross effusion. Heart and mediastinal contours are unchanged. Skin naldo and surgical drains again seen in the neck base. IMPRESSION: Lines and tubes unchanged. Trace apical air gap on the right just 2-3 mm. No other significant findings. <Electronically signed by Jhony Kingston > 04/27/20 0808
[2020-04-27] MEDS: LIOTHYRONINE 25 MCG TAB NG SCH (08:56)
[2020-04-27] MEDS: PANTOPRAZOLE 40MG VIAL (C9113 PER 1) IV SCH ×2 (08:56→21:19)
[2020-04-27] MEDS: HEPARIN SOD (PORCINE) 5000UNITS/ML 1ML VIAL/SYRINGE SQ SCH ×2 (08:56→21:19)
[2020-04-27] MEDS: CHLORHEXIDINE GLUCONATE 0.12 % 15ML UDC (PERIDEX ORAL RINSE) MT SCH ×2 (08:57→21:19)
[2020-04-27] MEDS ORDERED: ALPRAZolam 0.25 MG TAB NG PRN (10:45)
--- NOTE | 2020-04-27 11:37 | CCN ---
CRITICAL CARE NOTE DATE: 04/27/2020 SUBJECTIVE: The patient was seen and examined this morning during bedside rounds. Yesterday the patient had her left sided chest tube removed. Chest x-ray which was done later in the afternoon had shown no significant evidence of pneumothorax. The patient had her right sided chest tube placed to water seal and did not have any appreciable air leak noted. She was sitting out of bed to the chair, and she had even gotten up and ambulated briefly with physical therapy. She then had reported some symptoms of chest discomfort as well as shortness of breath. She was placed back in bed, as her 02 sats did also briefly drop. She was soon back to her usual oxygenation and her chest discomfort had improved. She did have a repeat chest x-ray done at that time which showed questionable few mm pneumothorax noted on the right and the left. The patient did not have any further episode of chest discomfort and her repeat x-ray this morning shows no significant pneumothorax on the left side with questionable trace apical air just 2-3 mm on the right. Her right sided chest tube on water seal still has not had any output and no air leak noted. The patient otherwise reports that she has been feeling well. She does have some occasional cough and mucous production, but has not had any fevers now overnight. She does have some occasional anxiety, she reports and restlessness as well as insomnia. OBJECTIVE: PHYSICAL EXAMINATION: VITAL SIGNS: Temperature 97.5, pulse 97, respirations 20, blood pressure 152/99, O2 sat 100% on trach collar at 28% FiO2. INTAKE AND OUTPUT: In's is 880. Out's is 1.4, net negative 554. GENERAL APPEARANCE: The patient is awake and alert and appears comfortably. She is able to mouth answers to questions. She is not using any accessory muscles for respirations. HEENT: Normocephalic and atraumatic. Pupils reactive to light bilaterally. The patient has an NG tube in place, and she has been tolerating tube feeds. NECK: Supple. Trachea is midline. She has a thyroidectomy incision with naldo and CHRISTINA drain with minimal output on the right and other drain on the left still. She does have a tracheostomy tube in place with a dressing with no significant bleeding. CARDIAC: Regular rate and rhythm, normal S1, S2, no significant murmur appreciated. CHEST: There is some coarse rhonchi noted bilaterally but no significant wheezing or rales. There is a right sided chest tube in place to water seal. ABDOMEN: Soft, nontender, nondistended. There is no palpable mass. EXTREMITIES: There is no significant lower extremity edema bilaterally. LABORATORY STUDIES: WBC 11.7, hemoglobin 12.4, platelet count 281. Chemistries - sodium is 139, potassium is 42, chloride is 104, bicarbonate is 25, BUN 18, creatinine 0.41, glucose is 60. TSH is 8.21, free T-4 is 0.73, calcium is 8.1, albumin is 2.9. IMAGING: Chest x-ray this morning shows the tracheostomy tube in place. There is an NG tube in place coursing below the diaphragm. There is questionable trace few mm of air on the right apex but no significant pneumothorax appreciated on the left. There is a right chest tube in place. ASSESSMENT: Ms. Gupta is a 29-year-old female with a history of papillary thyroid carcinoma, status post thyroidectomy procedure. Post procedure the patient had acute respiratory failure, thought to be secondary to vocal cord paralysis, with the complication of bilateral pneumothoraces requiring chest tube placement for evacuation. The patient is status post tracheostomy and had been weaned off of the ventilator to trach collar, which she has continued to do well with. Her left sided chest tube had been removed yesterday. 1. Acute respiratory failure requiring mechanical ventilation - now status post tracheostomy placement with suspected vocal cord paralysis. 2. History of bilateral pneumothoraces status post chest tube placement - with removal now of the left sided chest tube. 3. History of papillary thyroid carcinoma - status post thyroidectomy with postoperative hypothyroidism. 4. Hypokalemia resolved. 5. Tracheobronchitis. PLAN: - The patient has continued to do well on trach collar and off of the ventilator she has been afebrile as well and while she does have some rhonchi, her secretions fro the tracheostomy do appear more clear and less colored. - We will continue her with Levaquin for antibiotics with a total of 7-day course. - Will change morphine to percocet prn and cont toradol prn for pain control. will also start xanax prn BID for anxiety and rozerem prn qhs for insomnis - The patient's right sided chest tube has remained to water seal since yesterday morning this morning there is a questionable trace right apical pneumothorax noted but no significant air leak in her chest tube. We will remove her right sided chest tube and will repeat a chest x-ray a few hours later to monitor. - Would hold off on a Passy-Justino valve attempt today as yesterday with using the Passy-Justino valve, the patient quickly developed chest discomfort and suspect she does still have a degree of vocal cord dysfunction would be hesitant to use her Passy-Justino valve today as we will be removing her chest tubes, and there is a concern that she may have increases/shifts in transpulmonary pressure if there is continued vocal cord dysfunction. Can reassess tomorrow and consider laryngoscopy with ENT - The patient has been tolerating tube feeds via the NG tube and appears to be at her goal tube feeding rate we will continue with tube feeds and monitor for residuals and continue with aspiration precaution. - Continue with Protonix twice daily. - The patient's hypokalemia has resolved would continue to monitor her electrolytes and replete as needed. - Would discontinue the patient's Wynne catheter and continue the patient out of bed to chair as tolerated and working with PT/OT. - We will discontinue her daily chest x-rays. DVT prophylaxis Heparin. GI prophylaxis - PPI. Code Status Full code. Total critical care time spent not including procedures approximately 45 minutes. ALAINAD
[2020-04-27] MEDS: LevoFLOXacin IV 750 MG in IV 1 EA IV SCH (11:43)
[2020-04-27] MEDS ORDERED: PERCOCET 5MG/325MG TAB PO PRN (13:15)
--- NOTE | 2020-04-27 14:21 | REP ---
INDICATION: hx pneumothorax. COMPARISON: Study earlier today. TECHNIQUE: AP portable upright chest status post removal of the right-sided chest tube. FINDINGS: Tracheostomy tube and nasogastric tubes are unchanged the right sided chest tube is removed. Skin naldo at the neck base along with surgical drains are again seen at the tracheostomy site. Lung posada are well inflated. There is no infiltrate effusion or pneumothorax. The heart, mediastinal and hilar contours were normal. Bony thorax unremarkable. IMPRESSION: 1. Interval removal of the right-sided chest tube since the early a.m. chest x-ray today. No recurrence of pneumothorax. Lungs clear. 2. Tracheostomy tube, nasogastric tube and postsurgical changes in the neck base stable. No other findings. <Electronically signed by Jhony Kingston > 04/27/20 [id number]
[2020-04-27] MEDS: RAMELTEON 8 MG TAB (ROZEREM) PO PRN (21:19)
[2020-04-28] VITALS (7 sets, daily range): BP systolic 112–129; BP diastolic 67–82; O2SAT 100
[2020-04-28] MEDS: PERCOCET 5MG/325MG TAB PO PRN ×3 (04:12→21:55)
[2020-04-28 05:01] LABS: HEMATOCRIT 38.7 % (36.0-47.0); HEMOGLOBIN 12.5 g/dl (12.0-15.5); MEAN CORPUSCULAR HEMOGLOBIN 28.7 pg (27.0-33.0); MEAN CORPUSCULAR HGB CONC 32.3 g/dl (32.0-36.5); PLATELET COUNT, AUTOMATED 326 10^3/uL (150-450); RED BLOOD COUNT 4.35 10^6/uL (4.00-5.40); WHITE BLOOD COUNT 10.4 10^3/uL (4.0-10.0)
[2020-04-28 05:21] LABS: ALBUMIN 2.8 GM/DL (3.2-5.2); ALT/SGPT 59 U/L (12-78); BILIRUBIN,TOTAL 0.4 MG/DL (0.2-1.0); BLOOD UREA NITROGEN 18 MG/DL (7-18); CALCIUM LEVEL 8.5 MG/DL (8.5-10.1); CARBON DIOXIDE LEVEL 29 MEQ/L (21-32); CHLORIDE LEVEL 101 MEQ/L (98-107); CREATININE FOR GFR 0.52 MG/DL (0.55-1.30); GLOMERULAR FILTRATION RATE > 60.0 (>60); GLUCOSE, FASTING 103 MG/DL (70-100); SODIUM LEVEL 138 MEQ/L (136-145)
[2020-04-28] MEDS: KETOROLAC 30 MG/ML 1ML VIAL IV PRN ×2 (07:05→16:59)
[2020-04-28] MEDS: IPRATROPIUM 0.5MG/ALBUTEROL 2.5MG INH SOL UD 3ML (DUONEB) NEB SCH ×4 (07:43→19:44)
--- NOTE | 2020-04-28 08:01 | REP ---
INDICATION: BILATERAL PNEUMOTHORAX. COMPARISON: Comparison study April 27, 2020. TECHNIQUE: Portable upright AP chest radiograph. FINDINGS: Tracheostomy and nasogastric tubes remain in place unchanged. There is no visible pneumothorax or pneumomediastinum. Lungs are well inflated and clear. Monitoring electrodes are seen. Pleural angles are sharp. Heart size is normal.. Skin naldo are again seen across the base of the neck. IMPRESSION: Tracheostomy and nasogastric tubes in place. Otherwise no acute disease.. <Electronically signed by Sonny Welch > 04/28/20 1820
[2020-04-28] MEDS: CHLORHEXIDINE GLUCONATE 0.12 % 15ML UDC (PERIDEX ORAL RINSE) MT SCH ×2 (08:12→21:55)
[2020-04-28] MEDS: LIOTHYRONINE 25 MCG TAB NG SCH (08:13)
[2020-04-28] MEDS: PANTOPRAZOLE 40MG VIAL (C9113 PER 1) IV SCH ×2 (08:13→21:55)
[2020-04-28] MEDS: HEPARIN SOD (PORCINE) 5000UNITS/ML 1ML VIAL/SYRINGE SQ SCH ×2 (08:13→21:55)
[2020-04-28] MEDS: LevoFLOXacin 750 MG TABLET PO SCH (08:15)
[2020-04-28] MEDS: BACITRACIN OINTMENT 30GM TUBE TOP SCH ×2 (08:16→16:07)
--- NOTE | 2020-04-28 11:45 | CCN ---
CRITICAL CARE NOTE DATE: 04/28/2020 SUBJECTIVE: The patient was seen and examined this morning during bedside rounds. The patient has continued to do well on trach collar. She is still on 28% FiO2 and had not required any increasing amounts of oxygen supplementation. She does feel her breathing has improved slightly. She has an occasional cough now, but does not feel it is too significant. She did have her right-sided chest tube removed yesterday and she denies any significant discomfort currently. She has been tolerating tube feeds and has not had any significant nausea. She did get up out of bed and walk with PT earlier today. OBJECTIVE: VITAL SIGNS: Temperature 97.6, pulse 78, respirations 19, blood pressure 129/79, O2 saturation 95% on 28% FiO2. GENERAL: The patient is awake, alert, and appears comfortable. She is able to mouth answers to questions appropriately and does not appear to be using any accessory muscles for respiration. HEENT: Normocephalic, atraumatic. Pupils reactive to light bilaterally. The patient has an NG tube in place. NECK: Supple. Trachea is midline. She has a thyroidectomy incision across the base of her neck with naldo. The right-sided CHRISTINA drain was removed yesterday and she does still have a left CHRISTINA drain with minimal output. She has a tracheostomy tube in place with the dressing with no significant bleeding. CARDIAC: Regular rate and rhythm. Normal S1, S2. No significant murmurs auscultated. PULMONARY: There are some occasional coarse breath sounds noted more towards the right base, but no significant wheezing or rales. There is dressing from her previous chest tube. ABDOMEN: Soft, nontender, and nondistended with no palpable mass. EXTREMITIES: There is no significant lower extremity edema noted bilaterally. LABORATORY DATA: WBC 10.4, hemoglobin 12.5, platelets 326,000. Chemistry: Sodium 138, potassium 4.0, chloride 101, bicarb 29, BUN 18, creatinine 0.52, glucose 103. IMAGING DATA: Chest x-ray this morning shows tracheostomy tube in place. There is an NG tube in place in good position. There is interval removal of her right-sided chest tube and there is no pneumothorax noted on the right or left. ASSESSMENT: Ms. Gupta is a 29-year-old female with a history of papillary thyroid carcinoma status post thyroidectomy procedure. Postprocedure the patient had acute respiratory failure thought to be secondary to vocal cord paralysis with the complication of bilateral pneumothoraces requiring chest tube placement for evacuation. The patient was re-intubated as well due to her acute respiratory failure and she is now status post tracheostomy. 1. Acute respiratory failure requiring mechanical ventilation now status post tracheostomy placement due to suspected vocal cord paralysis. 2. History of bilateral pneumothoraces status post chest tube placement with interval removal now of both chest tubes. 3. History of papillary thyroid carcinoma status post thyroidectomy with postoperative hypothyroidism. 4. Tracheobronchitis, improving. PLAN: Patient continues to do well on trach collar and has not required any increasing oxygen supplementation. She is still on 28% FiO2. Will continue the trach collar for humidification of her secretions and continue weaning down FiO2 as tolerated. - The patient is on Levaquin, which we will change from IV to p.o. and continue for a total of a 7 day course of antibiotics for her tracheobronchitis. She has not had any further fevers and her leukocytosis has improved. - Will continue the patient on Percocet and Toradol p.r.n. for pain control with Xanax p.r.n. for anxiety and Rozerem p.r.n. for insomnia. - The patient has had removal of both of her chest tubes now and repeat chest x-ray this morning shows no pneumothorax on both sides. Would continue to monitor symptomatically and if she does have sudden chest pain or worsening shortness of breath or hypoxia, would get a stat chest x-ray. - Will attempt to place the patient on the Passy-[place] valve today and will continue assessments with speech pathology. The patient is also being followed by ENT and there is discussion of possible laryngoscopy to evaluate for her ongoing vocal cord dysfunction. - The patient is on tube feeds via the NG tube, which she has been tolerating. Will continue with aspiration precautions and monitoring residuals. - The patient was started on Protonix b.i.d. due to some maroon colored output from her NG tube. Can likely transition her to once a day at this time. - Will continue to monitor electrolytes and replete as needed. Her previous hypokalemia had resolved. - Continue with PT/OT. - DVT prophylaxis with heparin. - GI prophylaxis with PPI. Code status: FULL CODE. TOTAL CRITICAL CARE TIME: Not including procedure approximately 35 minutes. Please do not hesitate to call for any further questions or concerns. MTDD
--- NOTE | 2020-04-28 14:28 | IPNPDOC ---
Date Seen The patient was seen on 04/28/20. Progress Note SUBJECTIVE: Patient is comfortable in her chair, did well overnight, no new complaints at this time. Hospitalist service was consulted to assist with medical management. PHYSICAL EXAMINATION: VITAL SIGNS: Please see below. GENERAL: No distress HEENT: moist mucous membranes NECK: Trach with trach collar, large incision with naldo. CARDIOVASCULAR EXAMINATION: S1, S2, no murmurs RESPIRATORY EXAMINATION: Clear to auscultation, no wheezing ABDOMINAL EXAMINATION: Soft, nontender, nondistended, positive bowel sounds EXTREMITIES: Range of motion intact SKIN: No rash NEUROLOGICAL EXAMINATION: no focal deficits PSYCHIATRIC EXAMINATION: Calm and cooperative LABORATORY DATA, IMAGING STUDIES, MICROBIOLOGY: Please see below. ASSESSMENT AND PLAN: 29-year-old female with past medical history of metastatic papillary carcinoma of thyroid, is status post thyroidectomy, lymph node removal who was admitted for bilateral pneumothorax. PROBLEMS: 1. Metastatic Papillary carcinoma of the thyroid: Underwent thyroidectomy and lymph node removal, difficulty breathing postop, had bilateral pneumothorax, bilateral chest tubes were placed, which have now been removed. Patient was intubated, now extubated. Patient had trach placed as well, now hemodynamically stable on trach collar 28% FiO2. On Levaquin for tracheobronchitis, to complete 7 day course. Plan is to place Passy-Justino valve today and see if patient is able to breathe appropriately. We'll subsequently restarted on oral intake, currently remains on tube feeds. On Liothyronine post thyroidectomy Pain control with Tylenol, Percocet, Toradol as needed. DVT prophylaxis: Heparin subcutaneous GI prophylaxis: PPI VS, I&O, 24H, Fishbone Vital Signs/I&O Vital Signs Date Time Temp Pulse Resp B/P (MAP) Pulse Ox O2 Delivery O2 Flow Rate FiO2 04/28/20 13:48 18 Trach Collar 5.0 28 04/28/20 12:00 97.5 93 120/74 (89) 100 I&O- Last 24 Hours up to 6 AM 04/28/20 05:59 Intake Total 1430 ml Output Total 1330 ml Balance 100 ml Laboratory Data 24H LABS Laboratory Tests 2 04/28/20 04:33: Nucleated Red Blood Cells % (auto) 0.0, Anion Gap 8, Glomerular Filtration Rate > 60.0, Calcium Level 8.5, Total Bilirubin 0.4, Aspartate Amino Transf (AST/SGOT) 19, Alanine Aminotransferase (ALT/SGPT) 59, Alkaline Phosphatase 84, Total Protein 7.0, Albumin 2.8L, Albumin/Globulin Ratio 0.7L CBC/BMP Laboratory Tests 04/28/20 04:33 JOSE ESCALANTE MD Apr 28, 2020 14:28
[2020-04-28] MEDS: RAMELTEON 8 MG TAB (ROZEREM) PO PRN (21:55)
[2020-04-29] VITALS: BP 117/70
[2020-04-29] MEDS: BACITRACIN OINTMENT 30GM TUBE TOP SCH ×4 (01:19→22:02)
[2020-04-29] MEDS: KETOROLAC 30 MG/ML 1ML VIAL IV PRN ×2 (02:13→17:30)
[2020-04-29 04:00] VITALS: BP 119/78
[2020-04-29 05:23] LABS: HEMATOCRIT 39.3 % (36.0-47.0); HEMOGLOBIN 12.7 g/dl (12.0-15.5); MEAN CORPUSCULAR HGB CONC 32.3 g/dl (32.0-36.5); MEAN CORPUSCULAR VOLUME 89.7 fl (80.0-96.0); PLATELET COUNT, AUTOMATED 343 10^3/uL (150-450); RED BLOOD COUNT 4.38 10^6/uL (4.00-5.40); WHITE BLOOD COUNT 10.6 10^3/uL (4.0-10.0)
[2020-04-29 05:50] LABS: ALBUMIN 2.9 GM/DL (3.2-5.2); ALT/SGPT 52 U/L (12-78); BILIRUBIN,TOTAL 0.4 MG/DL (0.2-1.0); BLOOD UREA NITROGEN 18 MG/DL (7-18); CALCIUM LEVEL 8.5 MG/DL (8.5-10.1); CARBON DIOXIDE LEVEL 31 MEQ/L (21-32); CHLORIDE LEVEL 101 MEQ/L (98-107); CREATININE FOR GFR 0.57 MG/DL (0.55-1.30); GLOMERULAR FILTRATION RATE > 60.0 (>60); GLUCOSE, FASTING 89 MG/DL (70-100); POTASSIUM SERUM 4.4 MEQ/L (3.5-5.1); SODIUM LEVEL 137 MEQ/L (136-145)
[2020-04-29] MEDS: LevoFLOXacin 750 MG TABLET PO SCH (06:37)
[2020-04-29] MEDS: IPRATROPIUM 0.5MG/ALBUTEROL 2.5MG INH SOL UD 3ML (DUONEB) NEB SCH ×4 (07:43→20:20)
[2020-04-29 08:00] VITALS: BP 122/75
[2020-04-29] MEDS ORDERED: ONDANSETRON 4MG/2ML VIAL As Ordered ONE (08:01)
[2020-04-29] MEDS: CHLORHEXIDINE GLUCONATE 0.12 % 15ML UDC (PERIDEX ORAL RINSE) MT SCH ×2 (09:00→21:59)
[2020-04-29] MEDS: HEPARIN SOD (PORCINE) 5000UNITS/ML 1ML VIAL/SYRINGE SQ SCH ×2 (10:59→21:00)
[2020-04-29] MEDS: ONDANSETRON 4MG/2ML VIAL IV PRN ×2 (11:00→17:30)
[2020-04-29] MEDS: PANTOPRAZOLE 40MG VIAL (C9113 PER 1) IV SCH ×2 (11:00→22:00)
[2020-04-29] MEDS: LIOTHYRONINE 25 MCG TAB NG SCH (11:00)
[2020-04-29 11:45] VITALS: BP 130/76
--- NOTE | 2020-04-29 13:09 | IPNPDOC ---
Subjective Date Seen The patient was seen on 04/29/20. Subjective Chief Complaint/HPI Complaining of nausea since last night. Zofran helped iwth the nausea. No other complaints. Objective Physical Examination General Exam: Positive: Alert, Cooperative, No Acute Distress Eye Exam: Positive: PERRLA, Conjunctiva & lids normal, EOMI; Negative: Sclera icteric ENT Exam: Positive: Other ENT (tracheostomy with trach collar in place) Neck Exam: Positive: Supple, Other (surgical incision. ) Chest Exam: Positive: Clear to auscultation, Normal air movement Heart Exam: Positive: Rate Normal, Regular Rhythm, Normal S1, Normal S2; Negative: Murmurs, Rubs Abdomen Exam: Positive: Normal bowel sounds, Soft; Negative: Tenderness, Hepatospenomegaly Extremity Exam: Negative: Clubbing, Cyanosis, Edema Skin Exam: Positive: Nl turgor and temperature; Negative: Rash, Breakdown Assessment /Plan Assessment 29-year-old female with past medical history of Metastatic Left papillary carcinoma of thyroid, is status post total thyroidectomy, left modified radical neck dissection, central compartment dissection including bilateral peritracheal lymph nodes with operative complication of vocal cord palsy with acute SOB in the immediate post operative period in PACU with reintubation after initial extubation and development of bilateral pneumothoraxes s/p urgent b/l chest tubes. S/P placement of Tracheostomy. Now extubated with trach Coller, chest tubes have been removed. Has dysphagia and undergoing speech and swallow therapy. Metastatic Papillary carcinoma of the thyroid status post total thyroidectomy, left modified radical neck dissection, central compartment dissection including bilateral peritracheal lymph nodes complicated by acute vocal cord paralysis Now has tracheostomy with trach Coller To be fitted with Passy [place] valve On Liothyronine post thyroidectomy Pain control with Tylenol, Percocet, Toradol as needed. Tracheobronchitis on Levaquin last day 05/01/20 Acute respiratory failure in the immediate post op period now resolved. due to vocal cord paralysis and development of bilateral pneumothoraxes s/p bilateral chest tubes Now pneumothoraxes have resolved. Dysphagia remains on NG tube feeds ST following will get swallow eval today Plan/VTE VTE Prophylaxis Ordered?: Yes VS, I&O, 24H, Fishbone Vital Signs/I&O Vital Signs Date Time Temp Pulse Resp B/P (MAP) Pulse Ox O2 Delivery O2 Flow Rate FiO2 04/29/20 11:45 97.8 82 16 130/76 (94) 100 Trach Collar 5.0 28 I&O- Last 24 Hours up to 6 AM 04/29/20 06:00 Intake Total 910 ml Output Total 405 ml Balance 505 ml Laboratory Data 24H LABS Laboratory Tests 2 04/29/20 04:57: Nucleated Red Blood Cells % (auto) 0.0, Anion Gap 5L, Glomerular Filtration Rate > 60.0, Calcium Level 8.5, Total Bilirubin 0.4, Aspartate Amino Transf (AST/SGOT) 19, Alanine Aminotransferase (ALT/SGPT) 52, Alkaline Phosphatase 81, Total Protein 7.0, Albumin 2.9L, Albumin/Globulin Ratio 0.7L CBC/BMP Laboratory Tests 04/29/20 04:57 VIOLETA BLACK MD Apr 29, 2020 13:09
[2020-04-29] MEDS ORDERED: VARIBAR PUDDING 40% w/v 230ML TUBE As Ordered ONE (14:18)
[2020-04-29] MEDS ORDERED: E-Z-PAQUE 96% w/w SUSP 176GM BTL As Ordered ONE (14:19)
[2020-04-29] MEDS ORDERED: VARIBAR NECTAR 40% w/v 240ML SUSP BTL As Ordered ONE (14:19)
[2020-04-29] MEDS ORDERED: BARIUM SULFATE 700 MG TABLET (E-Z-DISK) As Ordered ONE (14:19)
[2020-04-29 16:00] VITALS: BP 136/77
--- NOTE | 2020-04-29 16:04 | REP ---
INDICATION: assess swallow safety. COMPARISON: None. TECHNIQUE: The procedure was performed by Josie Schilling [facility], under the direct supervision of Dr. Welch. The procedure was performed with Tigist Andrade and Gypsy Moreno from speech pathology present. 5 ml aliquots of honey thick consistency barium was administered. FINDINGS: Aspiration was visualized and the procedure was aborted. The detailed report of this examination will be provided by speech pathology. IMPRESSION: Aspiration was visualized with honey thick consistency barium, a detailed report will be provided by speech pathology. 0.2 minutes of fluoroscopy time was utilized for this procedure. Some fluoroscopic images are performed with last image hold technology. These images require no additional radiation <Electronically signed by Josie Schilling > 04/29/20 1449 <Electronically signed by Sonny Welch > 04/29/20 1600
[2020-04-29 20:00] VITALS: BP 117/72
[2020-04-29] MEDS: RAMELTEON 8 MG TAB (ROZEREM) PO PRN (22:00)
[2020-04-30] VITALS (13 sets, daily range): BP systolic 110–150; BP diastolic 68–89
[2020-04-30] MEDS: PERCOCET 5MG/325MG TAB PO PRN ×3 (00:55→23:41)
[2020-04-30] MEDS: LevoFLOXacin 750 MG TABLET PO SCH (06:50)
[2020-04-30] MEDS: IPRATROPIUM 0.5MG/ALBUTEROL 2.5MG INH SOL UD 3ML (DUONEB) NEB SCH ×4 (07:29→20:15)
[2020-04-30] MEDS: ONDANSETRON 4MG/2ML VIAL IV PRN (07:32)
[2020-04-30] MEDS: CHLORHEXIDINE GLUCONATE 0.12 % 15ML UDC (PERIDEX ORAL RINSE) MT SCH ×2 (08:18→20:22)
[2020-04-30] MEDS: HEPARIN SOD (PORCINE) 5000UNITS/ML 1ML VIAL/SYRINGE SQ SCH ×2 (08:18→20:23)
[2020-04-30] MEDS: PANTOPRAZOLE 40MG VIAL (C9113 PER 1) IV SCH ×2 (08:27→20:23)
[2020-04-30] MEDS: LIOTHYRONINE 25 MCG TAB NG SCH (08:28)
[2020-04-30] MEDS: BACITRACIN OINTMENT 30GM TUBE TOP SCH ×3 (08:28→23:40)
--- NOTE | 2020-04-30 10:22 | IPNPDOC ---
Subjective Date Seen The patient was seen on 04/30/20. Subjective Chief Complaint/HPI Failed swallow eval again. planned for PEG placement today. NPO. Again had nausea last night with tube feeds. No nausea this morning as has been off feeding since last night. Objective Physical Examination General Exam: Positive: Alert, Cooperative, No Acute Distress Eye Exam: Positive: PERRLA, Conjunctiva & lids normal, EOMI; Negative: Sclera icteric ENT Exam: Positive: Other ENT (tracheostomy with trach collar in place) Neck Exam: Positive: Supple, Other (surgical incision. ) Chest Exam: Positive: Clear to auscultation, Normal air movement Heart Exam: Positive: Rate Normal, Regular Rhythm, Normal S1, Normal S2; Negative: Murmurs, Rubs Abdomen Exam: Positive: Normal bowel sounds, Soft; Negative: Tenderness, Hepatospenomegaly Extremity Exam: Negative: Clubbing, Cyanosis, Edema Skin Exam: Positive: Nl turgor and temperature; Negative: Rash, Breakdown Assessment /Plan Assessment 29-year-old female with past medical history of Metastatic Left papillary carcinoma of thyroid, is status post total thyroidectomy, left modified radical neck dissection, central compartment dissection including bilateral peritracheal lymph nodes with operative complication of vocal cord palsy with acute SOB in the immediate post operative period in PACU with reintubation after initial extubation and development of bilateral pneumothoraxes s/p urgent b/l chest tubes. S/P placement of Tracheostomy. Now extubated with trach Coller, chest tubes have been removed. Has dysphagia and undergoing speech and swallow therapy. Metastatic Papillary carcinoma of the thyroid status post total thyroidectomy, left modified radical neck dissection, central compartment dissection including bilateral peritracheal lymph nodes complicated by acute vocal cord paralysis Now has tracheostomy with trach Coller fitted with Passy Justino valve On Liothyronine post thyroidectomy Pain control with Tylenol, Percocet, Toradol as needed. Tracheobronchitis on Levaquin last day 05/01/20 Acute respiratory failure in the immediate post op period now resolved. due to vocal cord paralysis and development of bilateral pneumothoraxes s/p bilateral chest tubes Now pneumothoraxes have resolved. Dysphagia persists, barium swallow shows aspiration PEG tube placement Dietary consult. Andrea requests if she can have ensure through the PEG tube as the other tube feeds are making her nauseous. Plan/VTE VTE Prophylaxis Ordered?: Yes VS, I&O, 24H, Fishbone Vital Signs/I&O Vital Signs Date Time Temp Pulse Resp B/P (MAP) Pulse Ox O2 Delivery O2 Flow Rate FiO2 04/30/20 07:25 96.8 82 18 120/71 (87) 96 Trach Collar 5.0 28 I&O- Last 24 Hours up to 6 AM 04/30/20 06:00 Intake Total 0 ml Output Total 0 ml Balance 0 ml Laboratory Data 24H LABS Laboratory Tests 2 04/30/20 08:35: Coronavirus (COVID-19)(PCR) NEGATIVE VIOLETA BLACK MD Apr 30, 2020 10:22
--- NOTE | 2020-04-30 12:12 | CR.PDOC ---
General Surgery Consultation Date of Consultation 04/30/20 History and Physical CONSULT REPORT FOR: Elisabet Loo MD REASON FOR CONSULTATION: for placement of gastrostomy feeding tube HISTORY OF PRESENT ILLNESS: I'm being asked to consider placing a percutaneous endoscopic gastrostomy feeding tube on Ms. Gupta. She is currently admitted in the hospital following a modified radical neck dissection for papillary thyroid cancer. Postoperatively she failed extubation and needed to be reintubated for bilateral vocal cord paralysis also is found to have bilateral pneumothorax. She has recovered from that and has undergone tracheostomy placement. She is currently being fed through a nasogastric tube. Yesterday she had swelling evaluation which shows aspiration discussed need for a feeding access. She has no prior abdominal surgeries. PAST MEDICAL HISTORY: 1. Papillary thyroid cancer 2. migraine. PAST SURGICAL HISTORY: INCLUDES: 1. thyroidectomy, MRN dissection 2. tracheostomy . ALLERGIES: Please see below.. HOME MEDICATIONS: Please see below. REVIEW OF SYSTEMS: Patient currently admitted in the hospital. Has been admitted since 04/22/2020 following total thyroidectomy and lymph node dissection. Prior to admission was her usual state of health. Denies any chronic medical problems her course in the hospital was reviewed. She status post tracheostomy placement. PHYSICAL EXAMINATION: VITALS SIGNS: Please see below. GENERAL APPEARANCE: Patient seen sitting up on the bed, appears pleasant, cooperative awake and alert and oriented. Thin body habitus HEENT: She has a tracheostomy in place with oxygen provided through the tracheostomy. She appears to be working with a past severe valve though she wasn't wearing it at that time that I saw her. She is able to mildly phonate with the open tracheostomy. LUNGS: [Clear to auscultation bilaterally. No wheezing appreciated]. HEART: Regular heart rate and rhythm. ABDOMEN: Abdomen is flat, soft, nondistended. No visible herniations. No prior scars. EXTREMITIES: No deformities or significant edema ANCILLARIES: . LABORATORY DATA: Please see below. IMAGING STUDIES: . IMPRESSION AND PLAN: Papillary thyroid carcinoma status post total thyroidectomy, lymph node dissection Respiratory failure status post tracheostomy Aspiration risk needing feeding access I have scheduled her for upper endoscopy with placement of M endoscopic gastrostomy tube for feeding. I discussed how the procedure is done with her and encouraged her to ask questions. Is able to communicate well whether she was using her phone to communicate with me. Most of the questions that she asked us regards to feeding afterwards she seems to be having some problems with the tube feeds that she was getting with the NG tube she was feeling mildly nauseated. Consent has been obtained from the patient. We will give her single dose of Unasyn prior to the placement of the tube.. Vital Signs Vital Signs Date Time Temp Pulse Resp B/P (MAP) Pulse Ox O2 Delivery O2 Flow Rate FiO2 04/30/20 11:51 97.5 88 18 125/77 (93) 90 Trach Collar 5.0 28 I&Os I&O- Last 24 Hours up to 6 AM 04/30/20 05:59 Intake Total 0 ml Output Total 0 ml Balance 0 ml Laboratory Data Labs 24H Laboratory Tests 2 04/30/20 08:35: Coronavirus (COVID-19)(PCR) NEGATIVE Home Medications Scheduled Biotin (Biotin) 2,500 Mcg Capsule, 2,500 MCG PO DAILY, (Reported) Miscellaneous Medications Cholecalciferol (Vitamin D3) (Vitamin D3) 1,000 Unit Tablet, 2,000 UNITS PO, (Reported) Allergies Coded Allergies: No Known Allergies (Unverified , 07/26/19) MARSHALL NESBITT MD Apr 30, 2020 12:11
[2020-04-30] MEDS ORDERED: LIDOCAINE 2% 100MG/5ML SDV (FOR ANES.) As Ordered ONE (12:51)
[2020-04-30] MEDS ORDERED: propofoL 200 MG/20 ML VIAL As Ordered ONE (12:51)
[2020-04-30] MEDS ORDERED: MIDAZOLAM INJ 2MG/2ML VIAL (J2250 PER 1MG) As Ordered ONE (12:53)
[2020-04-30] MEDS ORDERED: fentaNYL 100 MCG/2 ML INJECTION (J3010) As Ordered ONE (12:53)
[2020-04-30] MEDS ORDERED: ONDANSETRON 4MG/2ML VIAL As Ordered ONE (13:52)
[2020-04-30] MEDS ORDERED: LR 1,000 ML IV SCH (14:10)
[2020-04-30] MEDS ORDERED: ONDANSETRON 4MG/2ML VIAL IV PRN (14:10)
--- NOTE | 2020-04-30 14:22 | ROOR ---
Patient Name: Ashley Gupta Procedure Date: 04/30/2020 12:59 PM Date of : 1990 Age: 29 Room: Main OR Gender: Female Note Status: Finalized Procedure: Upper GI endoscopy Indications: Place PEG due to aspiration risk Providers: Lionel Felix MD Referring MD: 2. Inpatient 2. Inpatient Requesting Provider: Medicines: General Anesthesia Complications: No immediate complications. Procedure: Pre-Anesthesia Assessment: - Prior to the procedure, a History and Physical was performed, and patient medications and allergies were reviewed. The patient is competent. The risks and benefits of the procedure and the sedation options and risks were discussed with the patient. All questions were answered and informed consent was obtained. Patient identification and proposed procedure were verified by the physician, the nurse and the hair designer in the procedure room. Mental Status Examination: alert and oriented. Airway Examination: status post tracheostomy. Respiratory Examination: clear to auscultation. CV Examination: normal. Prophylactic Antibiotics: The patient Patient already on levaquin for tracheobronchitis treatment prophylactic antibiotics for planned PEG placement. The patient received antibiotic therapy today, before the procedure started. Prior Anticoagulants: The patient has taken no previous anticoagulant or antiplatelet agents. ASA Grade Assessment: III - A patient with severe systemic disease. After reviewing the risks and benefits, the patient was deemed in satisfactory condition to undergo the procedure. The anesthesia plan was to use general anesthesia. Immediately prior to administration of medications, the patient was re-assessed for adequacy to receive sedatives. The heart rate, respiratory rate, oxygen saturations, blood pressure, adequacy of pulmonary ventilation, and response to care were monitored throughout the procedure. The physical status of the patient was re-assessed after the procedure. The Endoscope was introduced through the mouth, and advanced to the second part of duodenum. The upper GI endoscopy was technically difficult and complex due to presence of tracheostomy, posterior location of the esophageal opening. With anesthesia's help, her neck was flexed to allow easier access of the upper esophageal opening, following the ng tube. Findings: Normal mucosa was found in the entire esophagus. Segmental mild inflammation characterized by erythema and linear erosions was found in the gastric body. The first portion of the duodenum and second portion of the duodenum were normal. The patient was placed in the supine position for PEG placement. The stomach was insufflated to appose gastric and abdominal camacho. A site was located in the body of the stomach with excellent transillumination for placement. The abdominal wall was marked and prepped in a sterile manner. The area was anesthetized with 5 mL of 1% lidocaine. The trocar needle was introduced through the abdominal wall and into the stomach under direct endoscopic view. A snare was introduced through the endoscope and opened in the gastric lumen. The guide wire was passed through the trocar and into the open snare. The snare was closed around the guide wire. The endoscope and snare were removed, pulling the wire out through the mouth. A skin incision was made at the site of needle insertion. The externally removable 20 Fr Bard gastrostomy tube was lubricated. The G-tube was passed over the guide wire through the mouth, and into the stomach. The trocar needle was removed, and the gastrostomy tube was pulled out from the stomach through the skin. The guide wire was removed, and the external bumper attached to the gastrostomy tube. The feeding tube was then cut to an appropriate length. The final position of the gastrostomy tube was confirmed by relook endoscopy, and skin marking noted to be 2 cm at the external bumper. The final tension and compression of the abdominal wall by the PEG tube and external bumper were checked and revealed that the bumper was loose and lightly touching the skin. The feeding tube was capped, and the tube site was cleaned and dressed. Impression: - Normal mucosa was found in the entire esophagus. - Bile gastritis. - Normal first portion of the duodenum and second portion of the duodenum. - An externally removable PEG placement was successfully completed. - No specimens collected. Recommendation: - Please follow the post-PEG recommendations including: change dressing once per day, remove dressing after 2 weeks, may use PEG today for meds and water and may use PEG tomorrow for feedings. Procedure Code(s): --- Professional --- 23407, Esophagogastroduodenoscopy, flexible, transoral; with directed placement of percutaneous gastrostomy tube Diagnosis Code(s): --- Professional --- K29.60, Other gastritis without bleeding R63.3, Feeding difficulties Z43.1, Encounter for attention to gastrostomy CPT copyright 2019 [employer]. All rights reserved. The codes documented in this report are preliminary and upon group home counselor review may be revised to meet current compliance requirements. Lionel Felix MD Lionel Felix MD 04/30/2020 2:22:08 PM Electronically signed by Lionel Felix MD Number of Addenda: 0 Note Initiated On: 04/30/2020 12:59 PM Estimated Blood Loss: Estimated blood loss was minimal.
[2020-04-30] MEDS: KETOROLAC 30 MG/ML 1ML VIAL IV PRN (15:25)
[2020-04-30] MEDS: RAMELTEON 8 MG TAB (ROZEREM) PO PRN (21:54)
[2020-05-01] VITALS: BP 109/57
[2020-05-01 04:00] VITALS: BP 119/72
[2020-05-01] MEDS: LevoFLOXacin 750 MG TABLET PO SCH (06:50)
[2020-05-01] MEDS: IPRATROPIUM 0.5MG/ALBUTEROL 2.5MG INH SOL UD 3ML (DUONEB) NEB SCH ×4 (07:14→19:52)
[2020-05-01 07:54] VITALS: BP 126/81
[2020-05-01] MEDS: ONDANSETRON 4MG/2ML VIAL IV PRN (08:20)
[2020-05-01] MEDS: CHLORHEXIDINE GLUCONATE 0.12 % 15ML UDC (PERIDEX ORAL RINSE) MT SCH ×2 (09:46→20:32)
[2020-05-01] MEDS: PANTOPRAZOLE 40MG VIAL (C9113 PER 1) IV SCH (09:46)
[2020-05-01] MEDS: LIOTHYRONINE 25 MCG TAB NG SCH (09:47)
[2020-05-01] MEDS: HEPARIN SOD (PORCINE) 5000UNITS/ML 1ML VIAL/SYRINGE SQ SCH ×2 (09:47→20:32)
[2020-05-01] MEDS: BACITRACIN OINTMENT 30GM TUBE TOP SCH ×2 (09:47→17:00)
[2020-05-01 12:00] VITALS: BP 122/71
[2020-05-01 16:00] VITALS: BP 120/76
--- NOTE | 2020-05-01 17:34 | IPNPDOC ---
Subjective Date Seen The patient was seen on 05/01/20. Subjective Chief Complaint/HPI Still with nausea. EGD yesterday during PEG placement did show some features of bile gastritis. Will start Tube feeding today. Objective Physical Examination General Exam: Positive: Alert, Cooperative, No Acute Distress Eye Exam: Positive: PERRLA, Conjunctiva & lids normal, EOMI; Negative: Sclera icteric ENT Exam: Positive: Other ENT (tracheostomy with trach collar in place) Neck Exam: Positive: Supple, Other (surgical incision. ) Chest Exam: Positive: Clear to auscultation, Normal air movement Heart Exam: Positive: Rate Normal, Regular Rhythm, Normal S1, Normal S2; Negative: Murmurs, Rubs Abdomen Exam: Positive: Normal bowel sounds, Soft; Negative: Tenderness, Hepatospenomegaly Extremity Exam: Negative: Clubbing, Cyanosis, Edema Skin Exam: Positive: Nl turgor and temperature; Negative: Rash, Breakdown Assessment /Plan Assessment 29-year-old female with past medical history of Metastatic Left papillary carcinoma of thyroid, is status post total thyroidectomy, left modified radical neck dissection, central compartment dissection including bilateral peritracheal lymph nodes with operative complication of vocal cord palsy with acute SOB in the immediate post operative period in PACU with reintubation after initial extubation and development of bilateral pneumothoraxes s/p urgent b/l chest tubes. S/P placement of Tracheostomy. Now extubated with trach Coller, chest tubes have been removed. Has dysphagia and undergoing speech and swallow therapy. Metastatic Papillary carcinoma of the thyroid status post total thyroidectomy, left modified radical neck dissection, central compartment dissection including bilateral peritracheal lymph nodes complicated by acute vocal cord paralysis Now has tracheostomy with trach Coller fitted with Passy Justino valve On Liothyronine post thyroidectomy Pain control with Tylenol, Percocet, Toradol as needed. Tracheobronchitis on Levaquin last day 05/01/20 Acute respiratory failure in the immediate post op period now resolved. due to vocal cord paralysis and development of bilateral pneumothoraxes s/p bilateral chest tubes Now pneumothoraxes have resolved. Dysphagia persists, barium swallow shows aspiration PEG tube placement Dietary consult. Patient requests if she can have ensure through the PEG tube as the other tube feeds are making her nauseous. Gastritis will start on PPI Plan/VTE VTE Prophylaxis Ordered?: Yes VS, I&O, 24H, Fishbone Vital Signs/I&O Vital Signs Date Time Temp Pulse Resp B/P (MAP) Pulse Ox O2 Delivery O2 Flow Rate FiO2 05/01/20 16:00 97.5 107 19 120/76 (91) 97 Trach Collar 5.0 28 I&O- Last 24 Hours up to 6 AM 05/01/20 06:00 Intake Total 340 ml Output Total 0 ml Balance 340 ml VIOLETA BLACK MD May 01, 2020 17:34
[2020-05-01 20:00] VITALS: BP 118/70
[2020-05-01] MEDS: RAMELTEON 8 MG TAB (ROZEREM) PO PRN (20:32)
[2020-05-01] MEDS: PERCOCET 5MG/325MG TAB PO PRN (20:33)
[2020-05-01] MEDS ORDERED: OMEPRAZOLE SUSPENSION 20MG 10ML ORAL SYRINGE GT SCH (21:00)
[2020-05-01] MEDS ORDERED: OMEPRAZOLE 20 MG CAP PO SCH (21:00)
[2020-05-02] VITALS: BP 118/70
[2020-05-02] MEDS: BACITRACIN OINTMENT 30GM TUBE TOP SCH ×2 (00:40→08:33)
[2020-05-02 04:00] VITALS: BP 127/77
[2020-05-02] MEDS: IPRATROPIUM 0.5MG/ALBUTEROL 2.5MG INH SOL UD 3ML (DUONEB) NEB SCH ×3 (07:07→15:36)
[2020-05-02] MEDS ORDERED: ACET-897 PO (07:31)
[2020-05-02] MEDS ORDERED: CYTO25TA6 NG (07:31)
[2020-05-02] MEDS ORDERED: PERI12LIQ MT (07:31)
[2020-05-02] MEDS ORDERED: RANI15TA GT (07:48)
[2020-05-02 07:58] VITALS: BP 110/68
[2020-05-02] MEDS: CHLORHEXIDINE GLUCONATE 0.12 % 15ML UDC (PERIDEX ORAL RINSE) MT SCH (08:14)
[2020-05-02] MEDS: HEPARIN SOD (PORCINE) 5000UNITS/ML 1ML VIAL/SYRINGE SQ SCH (08:33)
[2020-05-02] MEDS: LIOTHYRONINE 25 MCG TAB NG SCH (08:33)
--- NOTE | 2020-05-05 21:12 | DS.PDOC ---
Discharge Summary General Date of Admission Apr 22, 2020 at 16:42 Date of Discharge 05/02/20 Discharge Summary PROCEDURES PERFORMED DURING STAY: Total thyroidectomy, left modified radical neck dissection, central compartment dissection including bilateral peritracheal lymph nodes Bilateral chest tubes Tracheostomy PEG tube placement. DISCHARGE DIAGNOSES: Metastatic papillary cancer of thyroid s/p status post total thyroidectomy, left modified radical neck dissection Acute Vocal Cord paralysis Acute respiratory failure in bo immediate post op period. Bilateral pneumothorax s/p bilateral chest tubes s/p tracheostomy Dysphagia with aspiration s/p PEG tube placement Tracheobronchitis Gastritis. COMPLICATIONS/CHIEF COMPLAINT: Left Thyroid Papillary Carcinoma. HOSPITAL COURSE: 29-year-old female with past medical history of Metastatic Left papillary carcinoma of thyroid, is status post total thyroidectomy, left adela fied radical neck dissection, central compartment dissection including bilateral peritracheal lymph nodes with operative complication of vocal cord palsy with acute SOB in the immediate post operative period in PACU with reintubation after initial extubation and development of bilateral pneumothoraxes s/p urgent b/l chest tubes. S/P placement of Tracheostomy. Now extubated with trach Coller, chest tubes have been removed. Has dysphagia and undergoing speech and swallow therapy. Metastatic Papillary carcinoma of the thyroid status post total thyroidectomy, left modified radical neck dissection, central compartment dissection including bilateral peritracheal lymph nodes complicated by acute vocal cord paralysis Now has tracheostomy with trach Coller fitted with Passy Porter valve On Liothyronine post thyroidectomy Pain control with Tylenol, Percocet Tracheobronchitis on Levaquin last day 05/01/20 Acute respiratory failure in the immediate post op period now resolved. due to vocal cord paralysis and development of bilateral pneumothoraxes s/p bilateral chest tubes Now pneumothoraxes have resolved. Dysphagia persists, barium swallow shows aspiration PEG tube placement Dietary consult noted recommendations for tube feeds. Patient is strictly tube feeding dependent . No oral intake. Gastritis will start on PPI DISCHARGE MEDICATIONS: Please see below. ALLERGIES: Please see below. PHYSICAL EXAMINATION ON DISCHARGE: VITAL SIGNS: Please see below. General Exam: Positive: Alert, Cooperative, No Acute Distress Eye Exam: Positive: PERRLA, Conjunctiva & lids normal, EOMI; Negative: Sclera icteric ENT Exam: Positive: Other ENT (tracheostomy with trach collar in place) Neck Exam: Positive: Supple, Other (surgical incision. ) Chest Exam: Positive: Clear to auscultation, Normal air movement Heart Exam: Positive: Rate Normal, Regular Rhythm, Normal S1, Normal S2; Negative: Murmurs, Rubs Abdomen Exam: Positive: Normal bowel sounds, Soft; Negative: Tenderness, Hepatospenomegaly Extremity Exam: Negative: Clubbing, Cyanosis, Edema Skin Exam: Positive: Nl turgor and temperature; Negative: Rash, Breakdown LABORATORY DATA: Please see below. ACTIVITY: [As tolerated]. DIET: Tube feeding DISPOSITION: Home Health Service. DISCHARGE INSTRUCTIONS: Follow up with Dr Mcqueen in 1 week Trach care and PEG care as directed. ITEMS TO FOLLOWUP ON ON OUTPATIENT: Awaiting approval for tube feeds (Liquid Hope) by insurance DISCHARGE CONDITION: [Stable]. TIME SPENT ON DISCHARGE: 35 minutes. Vital Signs/I&Os Vital Signs Date Time Temp Pulse Resp B/P (MAP) Pulse Ox O2 Delivery O2 Flow Rate FiO2 05/02/20 07:58 97.1 94 16 110/68 (82) 96 Trach Collar 5.0 28 Discharge Medications Scheduled Chlorhexidine Gluconate (Chlorhexidine Gluconate) 473 Ml Mouthwash, 15 ML MT BID Liothyronine Sodium (Cytomel) 25 Mcg Tablet, 25 MCG NG DAILY Ranitidine Hcl (Ranitidine HCl) 150 Mg Tablet, 1 TAB GT BID Scheduled PRN Acetaminophen (Tylenol Extra Strength) 500 Mg Tablet, 500 MG PO Q8HP PRN for pa in Allergies Coded Allergies: No Known Allergies (Unverified , 07/26/19) VIOLETA BLACK MD May 05, 2020 21:12
== END 2020-05-02 16:01 | disposition home health service (06) | DRG 121 ==
LOC: M SDC 06:37 → M PCU 16:42
PROVIDERS: ADMIT Internal Medicine Pulmonary Disease; ATTEND Internal Medicine Nephrology
PROC: 0GTG0ZZ Resection of Left Thyroid Gland Lobe, Open Approach (ICD-10-PCS; 2020-04-22)
PROC: 07B20ZX Excision of Left Neck Lymphatic, Open Approach, Diagnostic (ICD-10-PCS; 2020-04-22)
PROC: 0GTH0ZZ Resection of Right Thyroid Gland Lobe, Open Approach (ICD-10-PCS; 2020-04-22)
PROC: 0W9930Z Drainage of Right Pleural Cavity with Drainage Device, Percutaneous Approach (ICD-10-PCS; 2020-04-22)
PROC: 5A1945Z Respiratory Ventilation, 24-96 Consecutive Hours (ICD-10-PCS; 2020-04-22)
PROC: 0W9B30Z Drainage of Left Pleural Cavity with Drainage Device, Percutaneous Approach (ICD-10-PCS; principal; 2020-04-22 07:30)
PROC: 0B110F4 Bypass Trachea to Cutaneous with Tracheostomy Device, Open Approach (ICD-10-PCS; 2020-04-24)
PROC: 0DH68UZ Insertion of Feeding Device into Stomach, Via Natural or Artificial Opening Endoscopic (ICD-10-PCS; 2020-04-30)
DX: J95.822 Acute and chronic postprocedural respiratory failure (principal); J38.02 Paralysis of vocal cords and larynx, bilateral; C77.0 Secondary and unspecified malignant neoplasm of lymph nodes of head, face and neck; J95.811 Postprocedural pneumothorax; R13.10 Dysphagia, unspecified; C73 Malignant neoplasm of thyroid gland; J95.89 Other postprocedural complications and disorders of respiratory system, not elsewhere classified; F17.200 Nicotine dependence, unspecified, uncomplicated; E87.6 Hypokalemia; K29.60 Other gastritis without bleeding; J40 Bronchitis, not specified as acute or chronic; Y83.6 Removal of other organ (partial) (total) as the cause of abnormal reaction of the patient, or of later complication, without mention of misadventure at the time of the procedure

== ENCOUNTER → 2020-05-09 | Outpatient (CLI) | payer OTHER ==
[~2020-05-09] MED LIST changes: +ACET-897 PO; +CYTO25TA6 NG; +PERI12LIQ MT; +RANI15TA GT
[2020-05-09 13:48] LABS: FREE THYROXINE INDEX 0.5 % (1.3-4.8); THYROID STIMULATING HORMONE 36.8 uIU/ML (0.358-3.740); THYROXINE (T4) 2.2 UG/DL (4.5-12.0)
== END ==
LOC: M LAB 12:19
PROVIDERS: ATTEND Physician Assistant Medical
DX: C73 Malignant neoplasm of thyroid gland (principal)

== ENCOUNTER → 2020-05-09 | Outpatient (CLI) | payer OTHER | LOC: M LAB 12:23 | PROVIDERS: ATTEND Internal Medicine | DX: E55.9 Vitamin D deficiency, unspecified (principal) ==

== ENCOUNTER → 2020-05-20 | Outpatient (CLI) | payer OTHER ==
[2020-05-20 16:12] LABS: FREE T3 0.7 PG/ML (2.2-4.0); FREE T4 0.4 NG/DL (0.76-1.46); THYROGLOBULIN ANTIBODY 314.6 U/ML (<60.0); THYROID STIMULATING HORMONE 85.4 uIU/ML (0.358-3.740)
== END ==
LOC: M LAB 14:37
PROVIDERS: ATTEND Physician Assistant Medical
DX: R94.6 Abnormal results of thyroid function studies (principal)

== ENCOUNTER → 2020-05-28 | Outpatient (CLI) | payer OTHER | LOC: M LAB 12:56 | PROVIDERS: ATTEND Physician Assistant Medical | DX: Z53.9 Procedure and treatment not carried out, unspecified reason (principal); R94.6 Abnormal results of thyroid function studies ==

== ENCOUNTER → 2020-05-28 | Outpatient (CLI) | payer OTHER ==
[2020-05-28 16:19] LABS: FREE T4 0.53 NG/DL (0.76-1.46)
== END ==
LOC: M LAB 13:12
PROVIDERS: ATTEND Physician Assistant Medical
DX: R94.6 Abnormal results of thyroid function studies (principal)

== ENCOUNTER → 2020-06-03 | Outpatient (CLI) | payer OTHER ==
[2020-06-03 14:36] LABS: FREE T3 1.1 PG/ML (2.2-4.0); FREE T4 0.71 NG/DL (0.76-1.46); THYROID STIMULATING HORMONE 94.9 uIU/ML (0.358-3.740)
[2020-06-03 15:08] LABS: THYROGLOBULIN ANTIBODY 225.3 U/ML (<60.0)
== END ==
LOC: M LAB 12:52
PROVIDERS: ATTEND Otolaryngology
DX: R94.6 Abnormal results of thyroid function studies (principal)

== ENCOUNTER → 2020-06-04 | Outpatient (RCR) | payer MEDICAID, OTHER | LOC: M PT 05-14 11:58 → M ST 05-23 09:03 → M PT 05-28 11:17 → M ST 05-28 11:42 → M PT 05-30 12:45 → M ST 05-30 13:30 → M PT 06-02 15:26 → M ST 08:53 → M PT 09:15 | PROVIDERS: ATTEND Physician Assistant Medical | DX: Z51.89 Encounter for other specified aftercare (principal); Z98.890 Other specified postprocedural states; C73 Malignant neoplasm of thyroid gland; Z93.0 Tracheostomy status ==

== ENCOUNTER 2020-06-16 22:47 | Emergency (ER) | payer OTHER ==
[~2020-06-16] VITALS: Ht 154.9 cm; Wt 48.4 kg
[2020-06-16] MEDS ORDERED: LEVO100T5 (22:59)
[2020-06-16] MEDS ORDERED: PANT40TA29 (22:59)
[2020-06-17 01:45] VITALS: BP 113/70
--- NOTE | 2020-06-17 01:48 | REPVR ---
PROCEDURE INFORMATION: Exam: XR Chest Exam date and time: 06/17/2020 1:12 AM Age: 29 years old Clinical indication: Cough TECHNIQUE: Imaging protocol: XR of the chest. Views: 1 view. COMPARISON: [facility] PORTABLE CHEST X-RAY 04/28/2020 6:52 AM FINDINGS: Tubes, catheters and devices: Tracheostomy catheter lies 4 cm above the michaela. Nasogastric tube is no longer present. Gastrostomy tube overlies the left upper quadrant Lungs: Degree of lung inflation is normal. No evidence of pulmonary edema. No focal consolidation or parenchymal lung mass. Pleural spaces: No pleural effusion or pneumothorax. Heart/Mediastinum: Cardiac silhouette appears normal. No adenopathy or hilar mass. Bones/joints: Osseous structures show no concerning abnormality. IMPRESSION: No acute or focal cardiopulmonary process. Electronically signed by: Low Baires On 06/17/2020 01:48:39 AM
== END 2020-06-17 02:02 | disposition home or self-care (01) ==
LOC: M ED 22:47
DX: Z93.0 Tracheostomy status (principal); R04.2 Hemoptysis; Z79.899 Other long term (current) drug therapy; Z79.890 Hormone replacement therapy; Z85.850 Personal history of malignant neoplasm of thyroid

== ENCOUNTER → 2020-06-23 | Outpatient (CLI) | payer OTHER ==
[~2020-06-23] MED LIST changes: +LEVO100T5; +PANT40TA29
--- NOTE | 2020-06-24 06:52 | REP ---
INDICATION: DYSPHAGIA, ORAL PHASE. COMPARISON: None. TECHNIQUE: The procedure was performed by Josie Schilling [facility], under the direct supervision of Dr. Welch. The procedure was performed with Tigist Andrade from speech pathology present. 5 ml aliquots of thin, pudding, mixed fruit with putting base, soft food, hard food, honey and nectar thick consistency barium was administered. FINDINGS: No aspiration or penetration was visualized during the exam. The detailed report of this examination will be provided by speech pathology. IMPRESSION: Unremarkable cookie swallow, a detailed report will be provided by speech pathology. 1.2 minutes of fluoroscopy time was utilized for this procedure. Some fluoroscopic images are performed with last image hold technology. These images require no additional radiation <Electronically signed by Josie Schilling > 06/23/20 [id number] <Electronically signed by Sonny Welch > 06/24/20 [id number]
== END ==
LOC: M ST 14:25
PROVIDERS: ATTEND Otolaryngology
DX: R13.11 Dysphagia, oral phase (principal)

== ENCOUNTER 2020-07-03 09:51 | Outpatient (RCR) | payer OTHER | END 2020-07-04 | LOC: M PT 09:51 | PROVIDERS: ATTEND Physician Assistant Medical | DX: R13.10 Dysphagia, unspecified (principal) ==

== ENCOUNTER → 2020-07-07 | Outpatient (CLI) | payer OTHER ==
[2020-07-07 15:55] LABS: FREE T4 1.13 NG/DL (0.76-1.46); THYROID STIMULATING HORMONE 37.7 uIU/ML (0.358-3.740)
== END ==
LOC: M LAB 11:50
PROVIDERS: ATTEND Internal Medicine Endocrinology, Diabetes & Metabolism
DX: E89.0 Postprocedural hypothyroidism (principal)

== ENCOUNTER 2020-07-10 10:26 | Outpatient (RCR) | payer OTHER | END 2020-08-04 | LOC: M PT 10:26 | PROVIDERS: ATTEND Physician Assistant Medical | DX: M62.81 Muscle weakness (generalized) (principal) ==

== ENCOUNTER → 2020-08-28 | Outpatient (CLI) | payer OTHER | LOC: M WUC 11:14 | PROVIDERS: ATTEND Internal Medicine Endocrinology, Diabetes & Metabolism | DX: E03.9 Hypothyroidism, unspecified (principal) ==

== ENCOUNTER → 2021-01-03 | Outpatient (CLI) | payer OTHER ==
[~2021-01-03] MED LIST changes: +LEVO125T4 PO
== END ==
LOC: M LABSMTC 11:10
PROVIDERS: ATTEND Anesthesiology
DX: Z01.818 Encounter for other preprocedural examination (principal); Z11.52 Encounter for screening for COVID-19

== ENCOUNTER 2021-01-08 11:02 | Day surgery (SDC) | payer OTHER ==
[~2021-01-08] VITALS: Ht 154.9 cm; Wt 49.0 kg
[2021-01-08] MEDS ORDERED: LIDOCAINE 1% SDV 30ML VIAL As Ordered ONE (14:14)
[2021-01-08] MEDS ORDERED: METHYLENE BLUE 0.5% (5MG/ML) 10 ML AMP (PROVAYBLUE) As Ordered ONE (14:34)
[2021-01-08] MEDS ORDERED: EPINEPHrine 1MG/ML INJ 30ML MD-VIAL As Ordered ONE (14:34)
[2021-01-08] MEDS ORDERED: LIDOCAINE 2% 100MG/5ML SDV (FOR ANES.) As Ordered ONE (14:43)
[2021-01-08] MEDS ORDERED: dexameTHASONE 4 MG/ML 1ML VIAL (J1100 PER 1MG) As Ordered ONE (14:43)
[2021-01-08] MEDS ORDERED: ROCURONIUM BROMIDE 50 MG/5 ML VIAL As Ordered ONE (14:43)
[2021-01-08] MEDS ORDERED: SUGAMMADEX SODIUM 500 MG/5 ML VIAL (BRIDION) As Ordered ONE (14:43)
[2021-01-08] MEDS ORDERED: fentaNYL 100 MCG/2 ML INJECTION As Ordered ONE (14:43)
[2021-01-08] MEDS ORDERED: MIDAZOLAM INJ 2MG/2ML VIAL (J2250 PER 1MG) As Ordered ONE (14:43)
[2021-01-08] MEDS ORDERED: propofoL 200 MG/20 ML VIAL As Ordered ONE (14:43)
[2021-01-08] MEDS ORDERED: ONDANSETRON 4MG/2ML VIAL As Ordered ONE (14:43)
[2021-01-08] MEDS ORDERED: CEFUROXIME INJ 1.5 GM VIAL (J0697 PER 750MG) As Ordered ONE (14:50)
[2021-01-08] MEDS ORDERED: LIDOCAINE W/EPINEPHRINE 1% 20ML VIAL As Ordered ONE (14:53)
[2021-01-08] MEDS ORDERED: PHENYLephrine 500MCG 5ML (100MCG/ML) SYRINGE As Ordered ONE (14:59)
[2021-01-08] MEDS ORDERED: ACETAMINOPHEN 1000MG 100ML IV BTL (OFIRMEV) (J0131 PER 10MG) As Ordered ONE (15:16)
[2021-01-08] MEDS ORDERED: ePHEDrine SULFATE 25 MG/5 ML(5MG/ML) SYRINGE As Ordered ONE (15:23)
[2021-01-08] MEDS ORDERED: BACITRACIN OINTMENT 30GM TUBE As Ordered ONE (15:42)
[2021-01-08] MEDS ORDERED: ONDANSETRON 4MG/2ML VIAL IV PRN (16:35)
[2021-01-08] MEDS ORDERED: fentaNYL 100 MCG/2 ML INJECTION IV PRN (16:35)
[2021-01-08] MEDS ORDERED: oxyCODONE 5MG TAB PO PRN (16:35)
[2021-01-08] MEDS ORDERED: LR 1,000 ML IV SCH (16:35)
[2021-01-08 17:05] VITALS: BP 111/68
== END 2021-01-08 17:30 | disposition home or self-care (01) ==
LOC: M SDC 11:02
PROVIDERS: ATTEND Otolaryngology
DX: Z43.0 Encounter for attention to tracheostomy (principal); Z85.858 Personal history of malignant neoplasm of other endocrine glands; Z90.89 Acquired absence of other organs; K21.9 Gastro-esophageal reflux disease without esophagitis; G43.909 Migraine, unspecified, not intractable, without status migrainosus; Z87.09 Personal history of other diseases of the respiratory system; F17.210 Nicotine dependence, cigarettes, uncomplicated; Z79.899 Other long term (current) drug therapy; Z85.850 Personal history of malignant neoplasm of thyroid
CPT/HCPCS: 31575; 31825; 81025; 88300; J0131; J0697; J1100; J2250; J2370; J2405; J3010; Q9968

== ENCOUNTER 2021-09-11 13:42 | Emergency (ER) | payer OTHER ==
[~2021-09-11] VITALS: Ht 154.9 cm; Wt 48.8 kg
[~2021-09-11 13:42] MED LIST changes: -D31000TA2 PO; +VITA100093 PO
[2021-09-11 16:46] VITALS: BP 111/61
== END 2021-09-11 16:52 | disposition home or self-care (01) ==
LOC: M ED 13:42
DX: M25.532 Pain in left wrist (principal); Z85.850 Personal history of malignant neoplasm of thyroid; Z85.858 Personal history of malignant neoplasm of other endocrine glands; Z90.89 Acquired absence of other organs; G43.909 Migraine, unspecified, not intractable, without status migrainosus; E03.9 Hypothyroidism, unspecified; F17.200 Nicotine dependence, unspecified, uncomplicated; Z79.890 Hormone replacement therapy

== ENCOUNTER → 2022-02-19 | Outpatient (CLI) | payer OTHER ==
[2022-02-19 18:04] LABS: FREE T4 1.5 NG/DL (0.89-1.76); THYROID STIMULATING HORMONE 0.466 uIU/ML (0.55-4.78)
== END ==
LOC: M WUC 11:26
PROVIDERS: ATTEND Internal Medicine Endocrinology, Diabetes & Metabolism
DX: Z85.850 Personal history of malignant neoplasm of thyroid (principal)

== ENCOUNTER → 2022-08-19 | Outpatient (CLI) | payer OTHER ==
[2022-08-19 16:20] LABS: BASO % 0.7 % (0.0-1.0); EOS # 0.1 10^3/uL (0.0-0.5); HEMATOCRIT 40.6 % (36.0-47.0); HEMOGLOBIN 13.2 g/dl (12.0-15.5); LYMPH # 3.1 10^3/uL (1.5-5.0); LYMPH % 50.9 % (24.0-44.0); MEAN CORPUSCULAR HEMOGLOBIN 29.5 pg (27.0-33.0); MEAN CORPUSCULAR HGB CONC 32.5 g/dl (32.0-36.5); MEAN CORPUSCULAR VOLUME 90.8 fl (80.0-96.0); MONO # 0.4 10^3/uL (0.0-0.8); MONO % 6.9 % (2.0-8.0); NEUTROPHILS # 2.4 10^3/uL (1.5-8.5); NEUTROPHILS % 39.3 % (36.0-66.0); PLATELET COUNT, AUTOMATED 399 10^3/uL (150-450); RED BLOOD COUNT 4.47 10^6/uL (4.00-5.40); WHITE BLOOD COUNT 6.1 10^3/uL (4.0-10.0)
[2022-08-19 16:29] LABS: THYROID STIMULATING HORMONE 0.066 uIU/ML (0.55-4.78)
[2022-08-19 16:30] LABS: PERCENT SATURATION 29.4 % (13.2-45.0)
[2022-08-19 16:33] LABS: FREE T4 1.73 NG/DL (0.89-1.76)
== END ==
LOC: M WUC 11:12
PROVIDERS: ATTEND Internal Medicine Endocrinology, Diabetes & Metabolism
DX: R53.83 Other fatigue (principal)

== ENCOUNTER → 2022-11-01 | Outpatient (CLI) | payer OTHER ==
[2022-11-01 17:19] LABS: FREE T4 1.52 NG/DL (0.89-1.76)
[2022-11-01 17:20] LABS: THYROID STIMULATING HORMONE 0.111 uIU/ML (0.55-4.78)
== END ==
LOC: M WUC 11:28
DX: C73 Malignant neoplasm of thyroid gland (principal); E89.0 Postprocedural hypothyroidism

== ENCOUNTER → 2023-03-24 | Outpatient (CLI) | payer OTHER ==
[2023-03-24 16:26] LABS: BASO % 0.4 % (0.0-1.0); EOS # 0.1 10^3/uL (0.0-0.5); EOS % 1.3 % (0.0-3.0); HEMATOCRIT 37.8 % (36.0-47.0); LYMPH # 2.9 10^3/uL (1.5-5.0); MEAN CORPUSCULAR HEMOGLOBIN 29.6 pg (27.0-33.0); MEAN CORPUSCULAR HGB CONC 34.4 g/dl (32.0-36.5); MEAN CORPUSCULAR VOLUME 86.1 fl (80.0-96.0); MONO # 0.7 10^3/uL (0.0-0.8); MONO % 7.3 % (2.0-8.0); NEUTROPHILS # 6.1 10^3/uL (1.5-8.5); NEUTROPHILS % 61.7 % (36.0-66.0); PLATELET COUNT, AUTOMATED 337 10^3/uL (150-450); RED BLOOD COUNT 4.39 10^6/uL (4.00-5.40)
[2023-03-24 16:59] LABS: PERCENT SATURATION 17.2 % (13.2-45.0)
[2023-03-24 17:00] LABS: FREE T4 1.22 NG/DL (0.89-1.76); THYROID STIMULATING HORMONE 1.237 uIU/ML (0.55-4.78)
== END ==
LOC: M LAB 15:46
PROVIDERS: ATTEND Internal Medicine Endocrinology, Diabetes & Metabolism
DX: Z85.850 Personal history of malignant neoplasm of thyroid (principal)

== ENCOUNTER → 2023-03-24 | Outpatient (CLI) | payer OTHER | LOC: M LAB 15:42 | PROVIDERS: ATTEND Physician Assistant | DX: N91.2 Amenorrhea, unspecified (principal); R11.0 Nausea ==

== ENCOUNTER 2023-04-22 17:05 | Emergency (ER) | payer OTHER ==
[~2023-04-22] VITALS: Ht 154.9 cm; Wt 55.3 kg
[2023-04-22 18:34] LABS: BASO # 0.1 10^3/uL (0.0-0.2); BASO % 0.6 % (0.0-1.0); EOS # 0.3 10^3/uL (0.0-0.5); EOS % 2.5 % (0.0-3.0); HEMATOCRIT 39.1 % (36.0-47.0); HEMOGLOBIN 13.7 g/dl (12.0-15.5); LYMPH # 3.1 10^3/uL (1.5-5.0); LYMPH % 29.5 % (24.0-44.0); MEAN CORPUSCULAR HEMOGLOBIN 30.6 pg (27.0-33.0); MEAN CORPUSCULAR VOLUME 87.5 fl (80.0-96.0); MONO # 0.7 10^3/uL (0.0-0.8); MONO % 7.1 % (2.0-8.0); NEUTROPHILS # 6.3 10^3/uL (1.5-8.5); PLATELET COUNT, AUTOMATED 368 10^3/uL (150-450); RED BLOOD COUNT 4.47 10^6/uL (4.00-5.40); WHITE BLOOD COUNT 10.5 10^3/uL (4.0-10.0)
[2023-04-22 19:18] LABS: BLOOD UREA NITROGEN 11 MG/DL (9-23); CALCIUM LEVEL 9.2 MG/DL (8.5-10.1); CARBON DIOXIDE LEVEL 27 MMOL/L (20-31); CHLORIDE LEVEL 103 MMOL/L (98-107); CREATININE FOR GFR 0.49 MG/DL (0.55-1.30); GLOMERULAR FILTRATION RATE > 60.0 (>60); GLUCOSE, FASTING 87 MG/DL (60-100); POTASSIUM SERUM 4.1 MMOL/L (3.5-5.1); SODIUM LEVEL 136 MMOL/L (136-145)
[2023-04-22 19:34] LABS: HCG, SERUM QUANTITATIVE 6592.7 MIU/ML (<4.2)
[2023-04-22 20:11] VITALS: BP 118/76; TEMP 97.6; O2SAT 100
== END 2023-04-22 20:32 | disposition home or self-care (01) ==
LOC: M ED 17:05
DX: O02.1 Missed abortion (principal); I73.00 Raynaud's syndrome without gangrene; Z85.850 Personal history of malignant neoplasm of thyroid; Z79.899 Other long term (current) drug therapy

== ENCOUNTER → 2023-08-09 | Outpatient (CLI) | payer OTHER ==
[2023-08-09 19:13] LABS: HEPATITIS B SURFACE ANTIGEN NEGATIVE (NEGATIVE)
[2023-08-09 19:26] LABS: HIV 1&2 SCREEN NEGATIVE (NEGATIVE)
[2023-08-09 19:34] LABS: HEPATITIS B CORE ANTIBODY IGM NEGATIVE (NEGATIVE); HEPATITIS C VIRUS ABY INDEX 0.02 INDEX (<0.8)
[2023-08-12 13:57] LABS: HPV APTIMA Not Detected (Not Detected)
== END ==
LOC: M PLALAB 14:37
PROVIDERS: ATTEND Obstetrics & Gynecology
DX: Z12.4 Encounter for screening for malignant neoplasm of cervix (principal); Z20.2 Contact with and (suspected) exposure to infections with a predominantly sexual mode of transmission

== ENCOUNTER → 2023-08-11 | Outpatient (REF) | payer OTHER, MEDICAID ==
[2023-08-11 16:31] LABS: Trichomonas vaginalis (AMP) NOT DETECTED (NEGATIVE)
[2023-08-11 16:55] LABS: GC DNA AMPLIFICATION NEGATIVE (NEGATIVE)
== END ==
LOC: M SFHCWAGY 14:52
PROVIDERS: ATTEND Obstetrics & Gynecology
DX: Z20.2 Contact with and (suspected) exposure to infections with a predominantly sexual mode of transmission (principal)

== ENCOUNTER → 2024-01-06 | Outpatient (CLI) | payer OTHER ==
[2024-01-06 13:11] LABS: FREE T4 1.63 NG/DL (0.89-1.76); THYROID STIMULATING HORMONE 0.762 uIU/ML (0.55-4.78)
[2024-01-09 15:38] LABS: THRYOGLOBULIN ANTIBODIES (ATA) 2 IU/mL (< or = 1); THYROGLOBULIN QUANTITATIVE < 0.1 ng/mL (2.8-40.9)
== END ==
LOC: M LAB 11:34
PROVIDERS: ATTEND Internal Medicine Endocrinology, Diabetes & Metabolism
DX: Z85.850 Personal history of malignant neoplasm of thyroid (principal)

== ENCOUNTER → 2024-03-06 | Outpatient (CLI) | payer OTHER | LOC: M RAD 14:01 | DX: C73 Malignant neoplasm of thyroid gland (principal); E89.0 Postprocedural hypothyroidism ==

== ENCOUNTER 2024-12-24 17:52 | Emergency (ER) | payer OTHER ==
[~2024-12-24] VITALS: Ht 154.9 cm; Wt 49.7 kg
[2024-12-24] MEDS ORDERED: MULTTAB20 PO (18:04)
[2024-12-24 20:55] LABS: BASO # 0.1 10^3/uL (0.0-0.2); BASO % 0.9 % (0.0-1.0); EOS # 0.1 10^3/uL (0.0-0.5); EOS % 1.4 % (0.0-3.0); LYMPH # 3.5 10^3/uL (1.5-5.0); LYMPH % 39.8 % (24.0-44.0); MONO # 0.6 10^3/uL (0.0-0.8); MONO % 7.2 % (2.0-8.0); NEUTROPHILS # 4.4 10^3/uL (1.5-8.5); NEUTROPHILS % 50.5 % (36.0-66.0); PLATELET COUNT, AUTOMATED 425 10^3/uL (150-450)
[2024-12-24 21:19] LABS: CALCIUM LEVEL 9.5 MG/DL (8.5-10.1); CARBON DIOXIDE LEVEL 29 MMOL/L (20-31); CHLORIDE LEVEL 103 MMOL/L (98-107); CREATININE FOR GFR 0.67 MG/DL (0.55-1.30); GLOMERULAR FILTRATION RATE > 90.0 (>60); POTASSIUM SERUM 4.2 MMOL/L (3.5-5.1); SODIUM LEVEL 142 MMOL/L (136-145)
[2024-12-24 21:32] LABS: HCG, SERUM QUANTITATIVE 5987.6 MIU/ML (<4.2)
[2024-12-25 04:00] VITALS: TEMP 98.2
[2024-12-25 04:30] VITALS: BP 115/70; O2SAT 100
== END 2024-12-25 04:41 | disposition home or self-care (01) ==
LOC: M ED 17:52
DX: O20.0 Threatened abortion (principal); Z3A.01 Less than 8 weeks gestation of pregnancy; O99.311 Alcohol use complicating pregnancy, first trimester; Z79.899 Other long term (current) drug therapy; Z79.810 Long term (current) use of selective estrogen receptor modulators (SERMs)

== ENCOUNTER 2024-12-25 14:00 | Emergency (ER) | payer OTHER ==
[~2024-12-25] VITALS: Ht 154.9 cm; Wt 49.7 kg
[~2024-12-25 14:00] MED LIST changes: +MULTTAB20 PO
[2024-12-25 14:51] LABS: BASO # 0.1 10^3/uL (0.0-0.2); BASO % 0.9 % (0.0-1.0); EOS # 0.2 10^3/uL (0.0-0.5); EOS % 1.8 % (0.0-3.0); LYMPH # 2.8 10^3/uL (1.5-5.0); LYMPH % 34.4 % (24.0-44.0); MONO # 0.6 10^3/uL (0.0-0.8); MONO % 7.7 % (2.0-8.0); NEUTROPHILS # 4.5 10^3/uL (1.5-8.5); NEUTROPHILS % 55.0 % (36.0-66.0); PLATELET COUNT, AUTOMATED 410 10^3/uL (150-450)
[2024-12-25 15:13] LABS: CALCIUM LEVEL 9.5 MG/DL (8.5-10.1); CARBON DIOXIDE LEVEL 28 MMOL/L (20-31); CHLORIDE LEVEL 102 MMOL/L (98-107); CREATININE FOR GFR 0.61 MG/DL (0.55-1.30); GLOMERULAR FILTRATION RATE > 90.0 (>60); POTASSIUM SERUM 4.6 MMOL/L (3.5-5.1); SODIUM LEVEL 140 MMOL/L (136-145)
[2024-12-25 15:25] LABS: HCG, SERUM QUANTITATIVE 2851.3 MIU/ML (<4.2)
[2024-12-25 16:35] VITALS: BP 118/59; TEMP 98.4; O2SAT 100
== END 2024-12-25 17:15 | disposition home or self-care (01) ==
LOC: M ED 14:00
DX: O03.9 Complete or unspecified spontaneous abortion without complication (principal); K21.9 Gastro-esophageal reflux disease without esophagitis; F17.210 Nicotine dependence, cigarettes, uncomplicated; F10.10 Alcohol abuse, uncomplicated; Z79.899 Other long term (current) drug therapy; Z79.810 Long term (current) use of selective estrogen receptor modulators (SERMs)

== ENCOUNTER → 2025-01-17 | Outpatient (CLI) | payer OTHER ==
[2025-01-17 16:06] LABS: FREE T4 1.63 NG/DL (0.89-1.76)
[2025-01-18 17:07] LABS: THRYOGLOBULIN ANTIBODIES (ATA) 2 IU/mL (< or = 1); THYROGLOBULIN QUANTITATIVE < 0.1 ng/mL (2.8-40.9)
== END ==
LOC: M LAB 14:40
PROVIDERS: ATTEND Internal Medicine Endocrinology, Diabetes & Metabolism
DX: Z85.850 Personal history of malignant neoplasm of thyroid (principal)